=== PATIENT | female | born 1990 | race Caucasian/White ===

== ENCOUNTER 2021-07-13 19:42 | Emergency (ER) | payer OTHER, SELFPAY ==
--- NOTE | 2021-07-13 19:50 | ED.URI ---
HPI - URI/Sore Throat General Stated Complaint: sore throat Time Seen by Provider: 07/13/21 19:50 Source: patient, family and RN notes reviewed History of Present Illness HPI Narrative: Patient is a 30-year-old female who presents the urgent care with complaints of a sore throat. Patient states that it started 7 days ago with some congestion and headache which is since relieved. Patient states that she has been taking Mucinex and has had a few doses of Tylenol. Denies of any fever, chills, nausea or vomiting. No other acute complaints. No acute distress noted. Patient aware of the plan of care. Some parts of this dictation were generated by voice recognition software and may contain typographical and/or grammatical inaccuracies. Related Data Allergies Allergy/AdvReac Type Severity Reaction Status Date / Time Cephalosporins Allergy Mild Verified 03/19/17 12:42 Penicillins Allergy Mild Verified 03/19/17 12:42 Sulfa (Sulfonamide Allergy Mild Verified 03/19/17 12:42 Antibiotics) Review of Systems Review of Systems: CONSTITUTIONAL: Denies fever, chills, or sweats. EYES: Denies visual changes, redness, or discharge. ENT: Denies rhinorrhea, congestion, otalgia. Reports of sore throat CARDIOVASCULAR: Denies chest pain, palpitations, or edema. RESPIRATORY: Denies cough or dyspnea. GASTROINTESTINAL: Denies abdominal pain, nausea, vomiting, or diarrhea. GENITOURINARY: Denies dysuria or hematuria. SKIN: Denies rash or itching. MUSCULOSKELETAL: Denies back pain, joint pain, or myalgia. NEUROLOGIC: Denies headache, numbness, or weakness. All other systems reviewed are negative, except as documented in HPI. PMFSH Comments At the time of my signature, I reviewed and agree with the nursing past medical, surgical, social, and family history. There is no relevant family history pertinent to the patient complaint. Exam Narrative: GENERAL: This is a well-nourished, well-developed patient, in no apparent distress. HEAD: normocephalic, atraumatic. EYES: PERRL. Sclera clear/white. Vision is grossly intact. EARS: External ears normal, auditory canals clear and without drainage, TMs normal without perforation. Hearing grossly intact. NOSE: External nose normal with no obvious nasal discharge, nares without redness, no rhinorrhea. THROAT: Mucous membranes moist, moderate erythema noted posterior pharynx without exudate or ulceration. Mild postnasal drainage NECK: Neck supple, non-tender without lymphadenopathy, masses or thyromegaly. CARDIOVASCULAR: Regular rate and rhythm without murmurs, gallops, or rubs. RESPIRATORY: Clear to auscultation. Breath sounds equal bilaterally. No wheezes, rales, or rhonchi. SKIN: warm, intact with no suspicious lesions or rash, good texture and turgor. NEURO: awake, alert, and oriented to person, place and time. There were no obvious focal neurologic abnormalities. EXTREMITIES: No clubbing, cyanosis, or edema. Course Course Level of Care: Express Care Visit Vital Signs Vital signs: Vital Signs Temperature 98.3 F 07/13/21 19:55 Pulse Rate 100 07/13/21 19:55 Respiratory Rate 18 07/13/21 19:55 Blood Pressure 136/76 07/13/21 19:55 Pulse Oximetry 100 07/13/21 19:55 Temperature 98.3 F 07/13/21 19:55 Pulse Rate 100 07/13/21 19:55 Respiratory Rate 18 07/13/21 19:55 Blood Pressure 136/76 07/13/21 19:55 Pulse Oximetry 100 07/13/21 19:55 Reviewed MDM - URI/Sore Throat MDM Narrative Medical decision making narrative: Reviewed lab results with the patient. She is aware that flu is negative and strep is positive. Advised patient complete the oral antibiotic regimen as prescribed. Be sure to eat and medication. Use Tylenol/ibuprofen as needed for fever pain. May continue Mucinex as needed. Increase water intake and rest. Use a humidifier at night. You will be contagious for 24 hours after the start of antibiotics and must be fever free, without fever reducers. Change her t
[2021-07-13 19:55] VITALS: BP 136/76; PULSE 100; RESP 18; TEMP 36.8; O2SAT 100
== END 2021-07-13 20:15 | disposition home or self-care (01) ==
PROVIDERS: Emergency Provider Nurse Practitioner Family; PCP Family Medicine
DX: J02.0 Streptococcal pharyngitis (principal); F41.9 Anxiety disorder, unspecified; F98.8 Other specified behavioral and emotional disorders with onset usually occurring in childhood and adolescence; Z86.16 Personal history of COVID-19
CPT/HCPCS: 87804; 87880; 99203; G0463

== ENCOUNTER 2021-11-19 10:16 | Outpatient (CLI) | payer OTHER, SELFPAY ==
--- NOTE | 2021-11-19 11:00 | NEURO_ITS ---
Impression: # Complains of bilateral hand pain and numbness. # This is a normal electrodiagnostic study. # There is no evidence of Carpal Tunnel Syndrome or ulnar neuropathy. # Normal needle/EMG exam. # Clinical correlation recommended. Nerve Conduction Studies Anti Sensory Summary Table Stim Site NR Peak (ms) P-T Amp (?V) Site1 Site2 Delta-P (ms) Dist (cm) Kalbe (m/s) Left Median Anti Sensory (2-3nd Digit) Wrist 3.2 83.6 Wrist 2-3nd Digit 3.2 14.0 44 Wrist 3.1 86.5 Wrist 2-3nd Digit 3.2 14.0 44 Right Median Anti Sensory (2-3nd Digit) Wrist 3.0 96.6 Wrist 2-3nd Digit 3.0 14.0 47 Wrist 3.0 82.0 Wrist 2-3nd Digit 3.0 14.0 47 Left Radial Anti Sensory (Base 1st Digit) Wrist 2.2 68.6 Wrist Base 1st Digit 2.2 0.0 Right Radial Anti Sensory (Base 1st Digit) Wrist 1.8 73.0 Wrist Base 1st Digit 1.8 0.0 Left Ulnar Anti Sensory (5th Digit) Wrist 3.0 94.5 Wrist 5th Digit 3.0 14.0 47 Right Ulnar Anti Sensory (5th Digit) Wrist 3.0 97.8 Wrist 5th Digit 3.0 14.0 47 Motor Summary Table Stim Site NR Onset (ms) O-P Amp (mV) Site1 Site2 Delta-0 (ms) Dist (cm) Kaleb (m/s) Left Median Motor (Abd Poll Brev) Wrist 2.7 5.7 Elbow Wrist 3.2 19.0 59 Elbow 5.9 5.8 Right Median Motor (Abd Poll Brev) Wrist 3.1 5.8 Elbow Wrist 3.2 20.0 63 Elbow 6.3 4.7 Left Ulnar Motor (Abd Dig Minimi) Wrist 2.7 4.8 A Elbow Wrist 4.2 25.0 60 A Elbow 6.9 3.7 B Elbow Wrist 3.0 18.0 60 B Elbow 5.7 3.9 Right Ulnar Motor (Abd Dig Minimi) Wrist 2.3 4.3 A Elbow Wrist 4.4 27.0 61 A Elbow 6.7 3.8 B Elbow Wrist 3.1 19.0 61 B Elbow 5.4 4.0 F Wave Studies NR F-Lat (ms) L-R F-Lat (ms) Left Median (Mrkrs) (Abd Poll Brev) 24.53 0.27 Right Median (Mrkrs) (Abd Poll Brev) 24.80 0.27 Left Ulnar (Mrkrs) (Abd Dig Min) 24.61 0.62 Right Ulnar (Mrkrs) (Abd Dig Min) 25.23 0.62 EMG Side Muscle Nerve Root Ins Act Fibs Amp Dur Recrt Comment Right 1stDorInt Ulnar C8-T1 Nml Nml Nml Nml Nml Right Ext Indicis Radial (Post Int) C7-8 Nml Nml Nml Nml Nml Right Ext Digitorum Radial (Post Int) C7-8 Nml Nml Nml Nml Nml Right BrachioRad Radial C5-6 Nml Nml Nml Nml Nml Right PronatorTeres Median C6-7 Nml Nml Nml Nml Nml Right Abd Poll Brev Median C8-T1 Nml Nml Nml Nml Nml Left 1stDorInt Ulnar C8-T1 Nml Nml Nml Nml Nml Left Ext Indicis Radial (Post Int) C7-8 Nml Nml Nml Nml Nml Left Ext Digitorum Radial (Post Int) C7-8 Nml Nml Nml Nml Nml Left BrachioRad Radial C5-6 Nml Nml Nml Nml Nml Left PronatorTeres Median C6-7 Nml Nml Nml Nml Nml Left Abd Poll Brev Median C8-T1 Nml Nml Nml Nml Nml MTDD
== END 2021-11-19 10:17 | disposition home or self-care (01) ==
LOC: ANHNEURO 10:19
PROVIDERS: PCP Family Medicine
DX: G56.02 Carpal tunnel syndrome, left upper limb (principal)
CPT/HCPCS: 95886; 95911

== ENCOUNTER 2021-12-22 12:49 | Outpatient (CLI) | payer OTHER, SELFPAY ==
--- NOTE | ~2021-12-22 | US_ITS ---
EXAMINATION: US breast RT limited HISTORY: Palpable lump in the upper inner quadrant of the right breast TECHNIQUE: Limited right breast ultrasound was performed. FINDINGS: There is no evidence of focal abnormal cystic or solid mass in the vicinity of the reported palpable abnormality of concern. IMPRESSION: No specific sonographic correlate is identified for the reported palpable abnormality of concern. Fur ther evaluation at this time should be based on clinical assessment. Continued follow-up physical exa mination is recommended. BI-RADS Category 1: Negative Reviewed, dictated and finalized at location A. IMPRESSION: No specific sonographic correlate is identified for the reported palpable abnor mality of concern. Further evaluation at this time should be based on clinical assessment. Continued follow-up physical examination is recommended. BI-RADS Category 1: Negative
== END 2021-12-22 12:50 | disposition home or self-care (01) ==
PROVIDERS: PCP Family Medicine; Visit Provider Nurse Practitioner
DX: R92.8 Other abnormal and inconclusive findings on diagnostic imaging of breast (principal)
CPT/HCPCS: 76642

== ENCOUNTER 2022-02-26 10:05 | Emergency (ER) | payer OTHER, SELFPAY ==
[2022-02-26 10:18] VITALS: BP 130/81; PULSE 97; RESP 16; TEMP 36.9; O2SAT 99
--- NOTE | 2022-02-26 10:25 | ED.URI ---
HPI - URI/Sore Throat General Chief Complaint: Upper Respiratory Infection Stated Complaint: Sore Throat/Right Ear Pain Time Seen by Provider: 02/26/22 10:20 Source: patient Mode of arrival: ambulatory Limitations: no limitations History of Present Illness HPI Narrative: Ata as 31-year-old female patient presenting to the clinic today with complaints of sore throat and right-sided ear pain times 2-3 days. She reports no fever or chills. No known exposure to table with fluid, COVID, or strep MD elicited complaint: sore throat and nasal congestion Related Data Home Medications Medication Instructions Recorded Confirmed dextroamphetamine-amphetamine ER 20 mg PO DAILY 07/13/21 02/26/22 20 mg 24hr capsule,extend release etonogestrel 0.12 mg-ethinyl See Rx Instructions .Route .COMPLEX 02/26/22 02/26/22 estradiol 0.015 mg/24 hr vaginal ring (EluRyng) Allergies Allergy/AdvReac Type Severity Reaction Status Date / Time Cephalosporins Allergy Mild Rash Verified 02/26/22 10:33 Penicillins Allergy Mild Rash Verified 02/26/22 10:33 Sulfa (Sulfonamide Allergy Mild Rash Verified 02/26/22 10:33 Antibiotics) Review of Systems Review of Systems: Pertinent positives per HPI. Patient denies any fever, chills, rash, headache, visual changes, dizziness, shortness of breath, chest pain, palpitations, nausea, vomiting, diarrhea, constipation, abdominal pain, or any urinary issues. PMFSH Comments At the time of my signature, I reviewed and agree with the nursing past medical, surgical, social, and family history. There is no relevant family history pertinent to the patient complaint. Exam Narrative: General: Well-developed, well nourished, in no apparent distress Head: Normocephalic, atraumatic Eyes: Pupils equally round and reactive to light bilaterally, EOM intact, sclera and conjunctive clear, no discharge, lids normal Ears: TMs intact, dull, bulging, ear canals clear, no drainage, grossly hearing normal. Nose: Nares patent, clear nasal discharge, no inflammation, no sinus tenderness. Mouth: Oral pharynx without lesions or masses, good dentition, MMM. oropharynx red, postnasal drip Neck: Supple, trachea midline, no enlargement of anterior or posterior cervical nodes, no thyroid masses or goiter palpable. Cardio: Regular rate and rhythm, s1 and s2 normal, no murmur appreciated. Resp: Clear to auscultation bilaterally, no rhonchi, rales, wheezing or rubs Course Course Emergency Course: Portions of this record may have been created with voice recognition software. Level of Care: Express Care Visit Vital Signs Vital signs: Vital Signs Temperature 36.9 C 02/26/22 10:18 Pulse Rate 97 02/26/22 10:18 Respiratory Rate 16 02/26/22 10:18 Blood Pressure 130/81 02/26/22 10:18 Pulse Oximetry 99 02/26/22 10:18 Oxygen Delivery Room Air 02/26/22 10:18 Temperature 36.9 C 02/26/22 10:18 Pulse Rate 97 02/26/22 10:18 Respiratory Rate 16 02/26/22 10:18 Blood Pressure 130/81 02/26/22 10:18 Pulse Oximetry 99 02/26/22 10:18 Oxygen Delivery Room Air 02/26/22 10:18 Vital signs reviewed MDM - URI/Sore Throat MDM Narrative Medical decision making narrative: At the time of the patient is resting comfortably on exam table. strep screen was obtained was negative clinic today. I suspect the patient has an upper respiratory infection / pharyngitis with eustachian tube dysfunction. Supportive measures were discussed with the patient she voiced understanding of discharge instructions and agrees to treatment plan. Prednisone prescription was sent to the pharmacy Differential Diagnosis Differential diagnosis: Likely upper respiratory infection, otitis media, sinusitis, viral infection, bronchitis, influenza, pharyngitis and other ( COVID) Lab Data Labs: Strep Screen Presumptive Negative *(Reference Range: Negative)* Di
== END 2022-02-26 10:50 | disposition home or self-care (01) ==
PROVIDERS: Emergency Provider Nurse Practitioner Family; PCP Family Medicine
DX: J06.9 Acute upper respiratory infection, unspecified (principal); J02.9 Acute pharyngitis, unspecified; H69.83 Other specified disorders of Eustachian tube, bilateral
CPT/HCPCS: 87081; 87880; 99213; G0463

== ENCOUNTER 2022-04-07 23:31 | Emergency (ER) | payer OTHER, SELFPAY ==
[2022-04-07 23:39] VITALS: BP 129/84; PULSE 106; RESP 16; TEMP 36.6; O2SAT 100
--- NOTE | 2022-04-07 23:50 | PC.NURSE ---
pt back from bathroom and states that she doesn't have that much bleeding or pain now.
[2022-04-08 00:15] LABS: Basophils Percent Auto 0.3 % (0.2-1.2); Eosinophils Absolute Auto 0.1 K/mm3 (0-0.3); Eosinophils Percent Auto 0.8 % (0-4.4); Hematocrit 36.9 % (37.0-47.0); Hemoglobin 11.9 g/dL (12.0-15.0); Immature Granulocyte Absolute 0.03 K/mm3 (0.00-0.031); Immature Granulocyte Percent A 0.3 % (0-0.5); Lymphocytes Absolute Auto 2.48 K/mm3 (0.9-3.2); Lymphocytes Percent Auto 23.3 % (18.3-44.2); Mean Corpuscular HGB Conc 32.2 g/dl (32-36); Mean Corpuscular Hemoglobin 27.2 pg (26-34); Mean Corpuscular Volume 84.2 fl (80-100); Mean Platelet Volume 10.6 fl (7.4-10.4); Monocytes Absolute Auto 0.7 K/mm3 (0.1-0.6); Monocytes Percent Auto 6.6 % (2.6-8.5); Neutrophils Absolute Auto 7.3 K/mm3 (1.3-6.7); Neutrophils Percent Auto 68.7 % (45.5-73.1); Platelet Count Result 342 k/mm3 (150-375); Red Blood Count 4.38 M/mm3 (4.2-5.4); Red Cell Distribution Width 15.3 % (11.5-14.5); White Blood Count 10.6 K/mm3 (4.5-10.0)
[2022-04-08 01:04] VITALS: BP 125/81; PULSE 88; RESP 18; O2SAT 100
--- NOTE | 2022-04-08 01:06 | PC.NURSE ---
Pt reports heavy vaginal bleeding, passing golf ball sized clots and tissue that started 04/07. Pt uses the Nuva ring and is unsure when her last cycle was. The bleeding started prior to changing the nuva ring but got much heavier after she took it out. States she has gone through at least 15 super plus tampons in the past 12 hours. . Pt brought a large piece of tissue that she passed earlier. She c/o mild cramping rated 2/10. Vitals are stable. She denies any other complaints.
--- NOTE | 2022-04-08 01:54 | ED.GENADULT ---
HPI - General Adult General Chief complaint: Vaginal Bleeding Stated complaint: vaginal bleeding Time Seen by Provider: 04/08/22 01:02 History of Present Illness HPI narrative: 31-year-old female that is presents to the emergency department for evaluation of vaginal bleeding. Patient states she has had vaginal spotting over the course of the last week but tonight had a significant increase in abdominal cramping and vaginal bleeding. Patient states that approximately 11 PM tonight she passed a large amount of tissue and immediately afterwards had improvement of her abdominal cramping and her bleeding has also resolved. Patient had been using the NuvaRing for control and did remove the NuvaRing today. Patient does follow-up with Dr. Reyes Related Data Home Medications Medication Instructions Recorded Confirmed dextroamphetamine-amphetamine ER 20 mg PO DAILY 07/13/21 02/26/22 20 mg 24hr capsule,extend release etonogestrel 0.12 mg-ethinyl See Rx Instructions .Route .COMPLEX 02/26/22 02/26/22 estradiol 0.015 mg/24 hr vaginal ring (EluRyng) Allergies Allergy/AdvReac Type Severity Reaction Status Date / Time Cephalosporins Allergy Mild Rash Verified 02/26/22 10:33 Penicillins Allergy Mild Rash Verified 02/26/22 10:33 Sulfa (Sulfonamide Allergy Mild Rash Verified 02/26/22 10:33 Antibiotics) Review of Systems Review of Systems: CONSTITUTIONAL: Denies fever, chills, or sweats. EYES: Denies visual changes, redness, or discharge. ENT: Denies rhinorrhea, congestion, sore throat, or otalgia. CARDIOVASCULAR: Denies chest pain, palpitations, or edema. RESPIRATORY: Denies cough or dyspnea. GASTROINTESTINAL: Denies abdominal pain, nausea, vomiting, or diarrhea. GENITOURINARY: See HPI SKIN: Denies rash or itching. MUSCULOSKELETAL: Denies back pain, joint pain, or myalgia. NEUROLOGIC: Denies headache, numbness, or weakness. Exam Narrative: APPEARANCE: Well appearing, no pain, no distress, well-nourished. HEAD: normocephalic, atraumatic. EYES: PERRLA/EOMI, conjunctivae clear. NOSE: Normal no drainage NECK: Supple. No adenopathy, no masses. RESPIRATORY: Airway patent, respirations nonlabored. Clear to auscultation bilaterally, no rales, rhonchi, wheezing. CARDIOVASCULAR: Regular rate and rhythm without murmurs rubs or gallops. ABDOMINAL: Soft, nontender, nondistended, normal bowel sounds Pelvic exam: Normal-appearing cervix with no active bleeding. No blood in the vaginal vault. No abdominal tenderness to palpation at this time. MUSCULOSKELETAL: Moves all extremities. Strength/ROM intact, No edema, No calf tenderness. NEURO: Alert. Cranial nerves II through XII intact. Grossly intact SKIN: Warm, dry. Normal Color Course Course Emergency Course: Patient did bring a bag with the products of conception that appear to be more than just clotted tissue. Case was discussed with the patient's ENGAGEMENT EXECUTIVE. Dr. Navarro felt that because the patient was pain-free and had no vaginal bleeding that she could have follow-up as an outpatient. Patient and visitor were comfortable with the plan for discharge and close follow-up. Patient was educated on reasons to return to the emergency room. All questions concerns were addressed. Differential diagnosis include threatened , vaginal injury and ectopic urgency. No evidence of vaginal injury. Patient does appear to pass some products of conception. Patient's bleeding did resolve after this point. Most likely diagnosis is threatened . Vital Signs Vital signs: Vital Signs Temperature 97.8 F 04/07/22 23:39 Pulse Rate 106 H 04/07/22 23:39 Respiratory Rate 16 04/07/22 23:39 Blood Pressure 129/84 04/07/22 23:39 Pulse Oximetry 100 04/07/22 23:39 Oxygen Delivery Room Air 04/07/22 23:39 Temperature 97.8 F 04/07/22 23:39 Pulse Rate 88 04/08/22 02:59 Respiratory Rate 18 04/08/22 02:59 Blood Pressure 112/70 04/08/22 02:59 Pulse Ox
--- NOTE | 2022-04-08 02:36 | PC.NURSE ---
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
--- NOTE | 2022-04-08 02:44 | PC.NURSE ---
[employer] called to report demise. Spoke with Ambar Barajas.
[2022-04-08 02:59] VITALS: BP 112/70; PULSE 88; RESP 18; O2SAT 99
[2022-04-09] MEDS: RHO(D) IMMUNE GLOBULIN 300 MCG/2 ML SYRINGE IM (10:29)
== END 2022-04-08 03:00 | disposition home or self-care (01) ==
PROVIDERS: Emergency Provider Emergency Medicine; PCP Family Medicine
DX: O20.0 Threatened abortion (principal); Z3A.00 Weeks of gestation of pregnancy not specified
CPT/HCPCS: 36415; 81025; 84702; 85025; 85461; 86850; 86900; 86901; 88305; 90384; 96372; 99284; J2790

== ENCOUNTER 2022-04-09 09:32 | Outpatient (CLI) | payer OTHER, SELFPAY | END 2022-04-09 09:33 | disposition home or self-care (01) | LOC: ANHLAB 09:35 | PROVIDERS: PCP Advanced Practice Midwife; Visit Provider Advanced Practice Midwife | DX: O20.0 Threatened abortion (principal); Z3A.00 Weeks of gestation of pregnancy not specified | CPT/HCPCS: 36415; 84702 ==

== ENCOUNTER 2022-04-10 02:31 | Emergency (ER) | payer OTHER, SELFPAY ==
[2022-04-10 02:38] VITALS: BP 141/89; PULSE 92; RESP 16; O2SAT 99
[2022-04-10 02:51] LABS: Basophils Percent Auto 0.3 % (0.2-1.2); Eosinophils Absolute Auto 0.2 K/mm3 (0-0.3); Eosinophils Percent Auto 2.6 % (0-4.4); Hemoglobin 11.3 g/dL (12.0-15.0); Immature Granulocyte Absolute 0.02 K/mm3 (0.00-0.031); Immature Granulocyte Percent A 0.2 % (0-0.5); Lymphocytes Absolute Auto 2.42 K/mm3 (0.9-3.2); Lymphocytes Percent Auto 28.2 % (18.3-44.2); Mean Corpuscular HGB Conc 31.4 g/dl (32-36); Mean Corpuscular Hemoglobin 26.6 pg (26-34); Mean Corpuscular Volume 84.7 fl (80-100); Mean Platelet Volume 10.8 fl (7.4-10.4); Monocytes Absolute Auto 0.6 K/mm3 (0.1-0.6); Monocytes Percent Auto 7.2 % (2.6-8.5); Neutrophils Absolute Auto 5.3 K/mm3 (1.3-6.7); Neutrophils Percent Auto 61.5 % (45.5-73.1); Platelet Count Result 307 k/mm3 (150-375); Red Blood Count 4.25 M/mm3 (4.2-5.4); Red Cell Distribution Width 15.6 % (11.5-14.5); White Blood Count 8.6 K/mm3 (4.5-10.0)
[2022-04-10 03:03] LABS: Anion Gap 7 mmol/L (8-16); Blood Urea Nitrogen 13 mg/dL (7-17); Calcium 8.6 mg/dL (8.4-10.2); Carbon Dioxide 28 mmol/L (22-30); Chloride 106 mmol/L (98-107); Estimated Glomerular Filt Rate > 60; Glucose 103 mg/dL (65-110); Sodium 141 mmol/L (137-145)
[2022-04-10] MEDS: HYDROcodone/acetaminophen (*CRX) 5-325 MG TABLET 1 TAB PO (03:04)
--- NOTE | 2022-04-10 03:36 | ED.ABDPAIN ---
HPI - Abdominal Pain General Chief Complaint: Abdominal Pain Stated Complaint: abdominal pain Time Seen by Provider: 04/10/22 02:36 Source: patient Mode of arrival: ambulatory Limitations: no limitations History of Present Illness HPI narrative: 31-year-old 2 para 1 here with complaints of lower abdominal cramping. Patient states that she is having a miscarriage. Patient states that she had a heavy bleeding yesterday however since last night it is much strip machine tender. MD elicited complaint: abdominal pain Pertinent past history: other (Miscarriage) Onset (ago): hour(s) (2) Pain Consistency: constant Location: suprapubic Severity: moderate Quality: cramping Radiation: none Migration to: no migration Exacerbating factors: nothing Relieving factors: nothing Context: confirms other (Miscarriage) Associated symptoms: denies other symptoms Related Data Home Medications Medication Instructions Recorded Confirmed dextroamphetamine-amphetamine ER 20 mg PO DAILY 07/13/21 02/26/22 20 mg 24hr capsule,extend release etonogestrel 0.12 mg-ethinyl See Rx Instructions .Route .COMPLEX 02/26/22 02/26/22 estradiol 0.015 mg/24 hr vaginal ring (EluRyng) Allergies Allergy/AdvReac Type Severity Reaction Status Date / Time Cephalosporins Allergy Mild Rash Verified 02/26/22 10:33 Penicillins Allergy Mild Rash Verified 02/26/22 10:33 Sulfa (Sulfonamide Allergy Mild Rash Verified 02/26/22 10:33 Antibiotics) Review of Systems Review of Systems: All systems reviewed & are unremarkable except as noted in HPI and below Constitutional: Constitutional: Reports no additional constitutional complaints Eyes: Eyes: Reports no additional eye complaints ENT: Reports system reviewed and no additional complaints, except as documented Cardiovascular: Cardiovascular: Reports no additional cardiovascular complaints Respiratory: Respiratory: Reports no additional respiratory complaints Gastrointestinal: Gastrointestinal: Reports as per HPI Genitourinary: Genitourinary: Reports as per HPI Musculoskeletal: Musculoskeletal: Reports no additional musculoskeletal complaints Exam Narrative: GENERAL: Well-appearing, well-nourished, and in no acute distress. HEAD: Normocephalic, atraumatic. EYES: PERRLA and EOMI. NECK: Supple. CHEST: Clear to auscultation. No respiratory distress. HEART: Regular rate and rhythm. No murmur heard. Normal peripheral pulses. ABDOMEN: Soft, nontender, nondistended, normal active bowel sounds. EXTREMITIES: Normal range of motion. No edema. SKIN: Warm, dry, no rash. NEURO: No focal deficits. Alert and oriented x3. PSYCH: Normal mood and affect. Course Course Emergency Course: Patient feeling much comfortable after hydrocodone tablet I did inform her about her lab work. I recommended her to drink more fluids, follow-up with SECURITY INVESTIGATOR next week. Vital Signs Vital signs: Vital Signs Pulse Rate 92 04/10/22 02:38 Respiratory Rate 16 04/10/22 02:38 Blood Pressure 141/89 H 04/10/22 02:38 Pulse Oximetry 99 04/10/22 02:38 Pulse Rate 92 04/10/22 02:38 Respiratory Rate 16 04/10/22 02:38 Blood Pressure 141/89 H 04/10/22 02:38 Pulse Oximetry 99 04/10/22 02:38 MDM - Abdominal Pain MDM Narrative Medical decision making narrative: 31-year-old with a given history of miscarriage and her beta-hCG quantitative was gradually coming down consistent with miscarriage. We will give her hydrocodone for cramps. Differential Diagnosis Differential diagnosis: Likely abdominal pain and other (Inevitable AB) Medical Records Attestation: I reviewed the patient's medical records. Lab Data Attestation: I reviewed the patient's lab results. 04/10/22 02:46 04/10/22 02:46 Labs: Lab Results 04/10/22 04/10/22 Range/Units 02:46 02:46 WBC 8.6 (4.5-10.0) K/mm3 RBC 4.25 (4.2-5.4) M/mm3 Hgb 11.3 L (12.0-15.0) g/dL Hct 36.0 L (37.0-47.0) % MCV 84.7
== END 2022-04-10 03:55 | disposition home or self-care (01) ==
PROVIDERS: Emergency Provider Family Medicine; PCP Family Medicine
DX: O03.9 Complete or unspecified spontaneous abortion without complication (principal); R10.30 Lower abdominal pain, unspecified
CPT/HCPCS: 36415; 80048; 84702; 85025; 99283; A9270

== ENCOUNTER 2022-04-20 14:29 | Outpatient (CLI) | payer OTHER, SELFPAY ==
[2022-04-20 15:19] LABS: Beta HCG Quantitative 28.44 mIU/ML
== END 2022-04-20 14:30 | disposition home or self-care (01) ==
LOC: ANHLAB 14:33
PROVIDERS: PCP Family Medicine; Visit Provider Advanced Practice Midwife
DX: O02.1 Missed abortion (principal)
CPT/HCPCS: 36415; 84702

== ENCOUNTER 2023-02-03 10:02 | Emergency (ER) | payer OTHER, SELFPAY ==
[2023-02-03 10:08] VITALS: BP 143/76; PULSE 87; RESP 18; TEMP 36.9; O2SAT 99
--- NOTE | 2023-02-03 10:11 | ED.URI ---
HPI - URI/Sore Throat General Chief Complaint: Upper Respiratory Infection Stated Complaint: Sore Throat/Body Aches Time Seen by Provider: 02/03/23 10:11 Source: patient Mode of arrival: ambulatory Limitations: no limitations History of Present Illness HPI Narrative: Alise is a 32-year-old female patient presenting to the clinic today with complaints of sore throat and body aches x1 day. She reports no known fever or chills. 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 MD elicited complaint: sore throat and nasal congestion Related Data Home Medications Medication Instructions Recorded Confirmed dextroamphetamine-amphetamine ER 20 mg PO DAILY 07/13/21 02/03/23 20 mg 24hr capsule,extend release etonogestrel 0.12 mg-ethinyl See Rx Instructions .Route .COMPLEX 02/26/22 02/03/23 estradiol 0.015 mg/24 hr vaginal ring (EluRyng) drospirenone (contraceptive) 4 mg 1 tablet PO DAILY 02/03/23 02/03/23 (28) tablet (Slynd) Allergies Allergy/AdvReac Type Severity Reaction Status Date / Time Cephalosporins Allergy Mild Rash Verified 02/03/23 10:26 Penicillins Allergy Mild Rash Verified 02/03/23 10:26 Sulfa (Sulfonamide Allergy Mild Rash Verified 02/03/23 10:26 Antibiotics) Review of Systems Review of Systems: Pertinent positives per HPI. Patient denies any fever, chills, rash, headache, visual changes, dizziness, cough, shortness of breath, chest pain, palpitations, nausea, vomiting, diarrhea, constipation, abdominal pain, or any urinary issues. PMFSH Comments At the time of my signature, I reviewed and agree with the nursing past medical, surgical, social, and family history. There is no relevant family history pertinent to the patient complaint. Exam Narrative: General: Well-developed, well nourished, in no apparent distress Head: Normocephalic, atraumatic Eyes: Pupils equally round and reactive to light bilaterally, EOM intact, sclera and conjunctive clear, no discharge, lids normal Ears: TMs intact and clear, ear canals clear, no drainage, grossly hearing normal. Nose: Nares patent, no discharge, no inflammation, no sinus tenderness. Mouth: Oral pharynx without lesions or masses, good dentition, MMM. Neck: Supple, trachea midline, no enlargement of anterior or posterior cervical nodes, no thyroid masses or goiter palpable. Cardio: Regular rate and rhythm, s1 and s2 normal, no murmur appreciated. Resp: Clear to auscultation bilaterally, no rhonchi, rales, wheezing or rubs Course Course Emergency Course: Portions of this record may have been created with voice recognition software. Level of Care: Express Care Visit Vital Signs Vital signs: Vital signs reviewed MDM - URI/Sore Throat MDM Narrative Medical decision making narrative: At the time of visit patient is resting comfortably on exam table. Strep test was negative. We will send strep for culture. Supportive measures were discussed with the patient she voiced understanding discharge instructions agrees to treatment plan. Differential Diagnosis Differential diagnosis: Likely upper respiratory infection, otitis media, sinusitis, viral infection, bronchitis, influenza, pharyngitis and other (COVID) Discharge Plan Discharge Clinical Impression: Pharyngitis Qualifiers: Pharyngitis/tonsillitis etiology: unspecified etiology Qualified Code(s): J02.9 - Acute pharyngitis, unspecified Patient Disposition: Home, Self-Care Condition: Stable Instructions: Antibiotic Form, Pharyngitis (ED) Additional Instructions: Strep screen was negative in the clinic today. We will send strep for culture and if this comes back positive we will contact you in place you on antibiotics Increase fluids and stay well hydrated Tylenol/motrin for pain/fever Flonase and OTC antihistamines as directed Vicks vapor rub to open sinuses Sinus rinses for congestion Cepacol spray, cough drops, throat lozenges, warm tea w
== END 2023-02-03 10:35 | disposition home or self-care (01) ==
PROVIDERS: Emergency Provider Nurse Practitioner Family
DX: J02.9 Acute pharyngitis, unspecified (principal)
CPT/HCPCS: 87081; 87880; 99213; G0463

== ENCOUNTER 2023-02-23 15:18 | Emergency (ER) | payer OTHER, SELFPAY ==
--- NOTE | 2023-02-23 15:21 | ED.URI ---
HPI - URI/Sore Throat General Chief Complaint: Upper Respiratory Infection Stated Complaint: Pressure on chest;Shortness of breath Time Seen by Provider: 02/23/23 15:33 Source: patient and RN notes reviewed Mode of arrival: ambulatory Limitations: no limitations History of Present Illness HPI Narrative: 32-year-old female presents with concern for cough. She reports chest congestion as well. She reports symptoms started 6 days ago she initially had fever, body aches, chills which have resolved. She reports she continues to have cough. She denies taking medication for her cough. MD elicited complaint: cough Related Data Home Medications Medication Instructions Recorded Confirmed drospirenone (contraceptive) 4 mg 1 tablet PO DAILY 02/03/23 02/23/23 (28) tablet (Slynd) Allergies Allergy/AdvReac Type Severity Reaction Status Date / Time Cephalosporins Allergy Mild Rash Verified 02/23/23 15:27 Penicillins Allergy Mild Rash Verified 02/23/23 15:27 Sulfa (Sulfonamide Allergy Mild Rash Verified 02/23/23 15:27 Antibiotics) Review of Systems Review of Systems: CONSTITUTIONAL: Denies malaise, chills, sweats, or fever. EYES: Denies visual changes, redness, or discharge. ENT: Denies rhinorrhea, congestion, sinus pain, otalgia and sore throat. CARDIOVASCULAR: Denies chest pain, palpitations, or edema. RESPIRATORY: Reports cough and chest congestion. Denies dyspnea. GASTROINTESTINAL: Denies abdominal pain, nausea, vomiting, diarrhea SKIN: Denies rash or itching. MUSCULOSKELETAL: Denies myalgia. NEUROLOGIC: Denies headache. All systems reviewed & are unremarkable except as noted in HPI and below PMFSH Comments At time of signature, agree with nursing past medical, surgical, social and family history. There is no relevant family history pertinent to the presenting complaint Exam Narrative: GENERAL: Well-appearing, well-nourished, and in no acute distress. HEAD: Normocephalic EYES: PERRLA, conjunctivae clear ENT: Nares clear. Mucous membranes moist. TM pearly salcedo with sharp light reflex bilaterally; no tragal tenderness. Oropharynx not erythematous without lesions. Tonsils not enlarged and without exudate, no drooling, no hoarseness, no trismus, uvula midline. NECK: Supple. No lymphadenopathy CHEST: Clear to auscultation, breath sounds equal. No wheezing, rhonchi, rales, or stridor. No respiratory distress, speaks in full sentences. HEART: Regular rate and rhythm. No murmur heard. SKIN: Warm, dry, no rash. NEURO: Alert and oriented x3. PSYCH: Normal mood and affect Course Course Emergency Course: Patient is aware of diagnosis, understands and agrees to treatment plan. Anticipatory guidance given. Patient agrees to follow-up as directed and is aware of reasons to seek care at the emergency department. Portions of this record may have been created with voice recognition software Level of Care: Express Care Visit Vital Signs Vital signs: Reviewed. MDM - URI/Sore Throat MDM Narrative Medical decision making narrative: Differential diagnosis considered: Monae virus, strep pharyngitis, allergic rhinitis, upper respiratory tract infection, sinusitis, rhinosinusitis, nasopharyngitis. viral pharyngitis, otitis media, otitis externa, pneumonia, bronchitis, viral cough syndrome, viral syndrome, and influenza. Exam findings show no acute concerns or changes; patient is non-toxic appearing and is in no distress. Patient is appropriate for outpatient treatment and follow-up. Lab Data Attestation: I reviewed the patient's lab results. Critical Care Time Critical Care Time Critical Care Time: No Discharge Plan Discharge Clinical Impression: Bronchitis Patient Disposition: Home, Self-Care Condition: Stable Instructions: Acute Bronchitis (ED) Additional Instructions: Viral illness may last between 7-21 days; antibiotics do not cure viral illness and are NOT recommended at this time. Recommend an
[2023-02-23 15:27] VITALS: BP 120/77; PULSE 77; RESP 16; TEMP 36.6; O2SAT 99
== END 2023-02-23 15:42 | disposition home or self-care (01) ==
PROVIDERS: Emergency Provider Nurse Practitioner; PCP Family Medicine
DX: J40 Bronchitis, not specified as acute or chronic (principal); Z86.16 Personal history of COVID-19
CPT/HCPCS: 99213; G0463

== ENCOUNTER 2024-04-01 14:03 | Emergency (ER) | payer BC, SELFPAY ==
[2024-04-01 14:18] VITALS: BP 141/81; PULSE 108; RESP 20; TEMP 36.9; O2SAT 100
--- NOTE | 2024-04-01 14:52 | ED_ITS ---
HPI - URI/Sore Throat General Chief Complaint: Upper Respiratory Infection Stated Complaint: cough,sinus pressure History of Present Illness HPI Narrative: patient is a 33-year-old female, presents to [facility] with approximately 3 week history of URI symptoms, waxing and waning seem very however over the past week they have progressively worsened, now with right maxillary sinus pain, purulent nasal discharge, and a productive cough that is worse at night when she lies supine. She denies associated chest pain or shortness of breath. She has attempted [id number] Delsym, Vistaril and used her inhaler without much relief. She denies any additional associated symptoms or modifying factors. She is not . Related Data Home Medications ?Medication ?Instructions ?Recorded ?Confirmed ?Last Taken ?Type drospirenone (contraceptive) 4 mg 1 tablet PO DAILY 02/03/23 02/23/23 Unknown History (28) tablet (Slynd) dextroamphetamine-amphetamine 30 04/01/24 Unknown History mg tablet hydroxyzine HCl 25 mg tablet mg 04/01/24 Unknown History Allergies Allergy/AdvReac Type Severity Reaction Status Date / Time Cephalosporins Allergy Mild Rash Verified 04/01/24 14:24 Penicillins Allergy Mild Rash Verified 04/01/24 14:24 Sulfa (Sulfonamide Allergy Mild Rash Verified 04/01/24 14:24 Antibiotics) Review of Systems ENT: Comments: Refer HPI Exam Const: General: healthy appearing, no acute distress and alert Nutritional Appearance: obese Orientation/consciousness: patient oriented x3 Limitations: no limitations HENMT: Head: normal to inspection Ears: external ears normal and TM's normal bilaterally Face/Nose/Sinus: Normal external nose present and Nasal discharge present purulent bilateral Face and sinus: normal facial exam and sinus tenderness maxillary ( right maxillary sinus is tender palpation) Mouth: Yes Normal oral and palatal mucosa present and Yes lip normal Teeth and gingiva: dentition normal Throat: posterior oropharynx normal and uvula midline Eyes: Conjunctivae: conjunctivae normal Pupils: Equal, round and reactive pupils present EOM: EOMs intact bilaterally Neck: Neck: normal visual inspection, no lymphadenopathy and no meningeal signs Resp: Effort & Inspection: normal respiratory effort Auscultation: clear to auscultation bilaterally Cardio: Rate: regular rate Rhythm: regular rhythm Skin: General skin exam: normal color Rashes: no rashes Wounds: no wounds Neuro: General: patient oriented x3, moves all extremities, no meningeal signs, no focal motor deficits and CN's II-XI intact bilaterally Cranial nerves: Yes Nystagmus not present Speech: normal speech Gait exam (Neuro): Normal gait present Extrem: General: normal to inspection Course Course Emergency Course: plan to treat with oral antibiotics suspected postviral,acute bacterial rhinosinusitis, cough suppressant, [id number] Flonase, APAP and Motrin as needed. Follow up PCP in 3 days if symptoms are not resolving. Patient is agreeable plan Level of Care: Express Care Visit (19614) Vital Signs Vital signs: Vital Signs Temperature 36.9 C 04/01/24 14:18 Pulse Rate 108 H 04/01/24 14:18 Respiratory Rate 20 04/01/24 14:18 Blood Pressure 141/81 H 04/01/24 14:18 Pulse Oximetry 100 04/01/24 14:18 Oxygen Delivery Room Air 04/01/24 14:18 Temperature 36.9 C 04/01/24 14:18 Pulse Rate 108 H 04/01/24 14:18 Respiratory Rate 20 04/01/24 14:18 Blood Pressure 141/81 H 04/01/24 14:18 Pulse Oximetry 100 04/01/24 14:18 Oxygen Delivery Room Air 04/01/24 14:18 MDM - URI/Sore Throat MDM Narrative Medical decision making narrative: doxycycline, promethazine DM Differential Diagnosis Differential diagnosis: Likely upper respiratory infection, sinusitis, viral infection, bronchitis and pharyngitis Discharge Plan Discharge Clinical Impression: Sinusitis Qualifiers: Sinusitis location: maxillary Chronicity: acute Recurrence: non-recurrent Qualified Code(s): J01.00 - Acute maxillary sinusitis, unspecified Patient Disposition: Home, Self-Care Condition: Stable Instructions: Antibiotic Form, Sinusitis (ED) Additional Instructions: PUSH FLUIDS AND REST, COMPLETE ANTIBIOTICS PRESCRIBED, TAKE WITH FOOD TO REDUCE GI SIDE EFFECTS, YOU MAY USE [id number] FLONASE FOR ADDED SYMPTOM RELIEF. COUGH MEDICATION PRESCRIBED, FOLLOW-UP WITH YOUR PRIMARY DOCTOR IN 3 DAYS IF SYMPTOMS ARE NOT IMPROVING Patient Language: Korean Prescriptions: New promethazine-DM 6.25-15 mg/5 mL syrup 5 ml PO Q4-6H PRN (Reason: cough) Qty: 118 0RF doxycycline hyclate 100 mg capsule 100 mg PO BID 10 Days Qty: 20 0RF No Action Slynd 4 mg (28) tablet 1 tablet PO DAILY dextroamphetamine-amphetamine 30 mg tablet hydroxyzine HCl 25 mg tablet Follow-up/Referrals: Stalin,Willy Wagner MD [Primary Care Provider] - Stand Alone Forms: Work/School Release IP Time of Disposition: 14:57
--- OUTSIDE RECORDS SUMMARY | 2024-04-08 16:57 | XMS_ITS | Patient Health Summary ---
Author Organization [facility] Address [address] [place] [address] Care Team Providers Care Instructional Paraprofessional Name Role Phone Willy Gant MD Primary Care Provider Note from [facility],non-owned Affiliates and Associated Physician Practices is amultiple site organization consisting of ambulatory clinics and hospital sitesin [place], [place], [place] and [place]. This disclosure is being madepursuant to the Care Everywhere program and may not contain all information available regarding this patient. Last updated 17.[facility] Allergies * Cephalosporins(Urticaria,Swelling) -Medium Criticality * Penicillins(Urticaria,Swelling) -Medium Criticality * Sulfa Drugs(Unknown) Medications Be aware that medications may not be up to date on this document. Always verify current medications with the patient. No known medications Social History Tobacco Use Types Packs/Day Years Used Date Smoking Tobacco: Every Day Smokeless Tobacco: Never Comments:Vape Sex and Gender Information Value Date Recorded Sex Assigned at Not on file Gender Identity Not on file Sexual Orientation Not on file Last Filed Vital Signs Vital Sign Reading Time Taken Comments Blood Pressure 128/86 12/05/2018 12:37 PM CDT Pulse 82 12/05/2018 12:37 PM CDT Temperature 37.1 ??C (98.8 ??F) 12/05/2018 12:37 PM C DT Respiratory Rate 16 12/05/2018 12:37 PM CDT Oxygen Saturation 98% 12/05/2018 12:37 PM CDT Inhaled Oxygen Concentration - - Weight 72.6 kg (160 lb) 12/05/2018 12:37 PM CDT Height 165.1 cm (5' 5 ) 12/05/2018 12:37 PM CDT Body Mass Index 26.63 12/05/2018 12:37 PM CDT Procedures * STREP A SCREEN - POINT OF CARE (AMB) STL(Performed 12/05/2018) Performed for Nasopharyngitis Results * STREP A SCREEN (12/05/2018 12:41 PM CDT) Strep A Rapid POCT Negative Negative Strep A Internal Control Present Lot # [id number] Expiration Date 04 03 2020 Throat ENTIRE THROAT (SURFACE REGION OF NECK) / Unknown 12/05/2018 12:41 PM CDT Selene Carson 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
--- OUTSIDE RECORDS SUMMARY | 2024-04-08 16:57 | XMS_ITS | Encounter Summary ---
Author Organization [facility] Address [address] [place] [address] Care Team Providers Care Lumber Carrier Operator Name Role Phone Willy Gant MD Primary Care Provider Reason for Visit * Reason Onset Date Comments Follow-up 12/07/2018 Encounter Details Date Type Department Care Team ([facility] st Contact Info) Description 12/07/2018 Telephone [facility] AT [address] [phone] Provider, [facility] Follow-up Social History Tobacco Use Types Packs/Day Years Used Date Smoking Tobacco: Every Day Smokeless Tobacco: Never Comments:Vape Sex and Gender Information Value Date Recorded Sex Assigned at Not on file Gender Identity Not on file Sexual Orientation Not on file documented as of this encounter Plan of Treatment Not on file documented as of this encounter Visit Diagnoses Not on filedocumented in this encounter Care Teams Lumber Carrier Operator Relationship Specialty Start Date End Date Willy Gant MD [address] [facility] [address] [phone] PCP - General Family Medicine 12/05/18 documented as of this encounter
--- OUTSIDE RECORDS SUMMARY | 2024-04-08 16:57 | XMS_ITS | Encounter Summary ---
Author Organization [facility] Address [address] [place] [address] Care Team Providers Care Mine Production Engineer Name Role Phone Willy Gant MD Primary Care Provider Reason for Visit * Reason Comments Sore Throat Encounter Details Date Type Department Care Team (Late st Contact Info) Description 12/05/2018 12:20 PM CDT Office Visit [facility] AT [address] [phone] Provider, Alejandro Exp [place] Nasopharyngitis (Primary Dx) Social History Tobacco Use Types Packs/Day Years Used Date Smoking Tobacco: Every Day Smokeless Tobacco: Never Comments:Vape Sex and Gender Information Value Date Recorded Sex Assigned at Not on file Gender Identity Not on file Sexual Orientation Not on file documented as of this encounter Last Filed Vital Signs Vital Sign Reading [...] Mass Index 26.63 12/05/2018 12:37 PM CDT documented in this encounter Patient Instructions * Patient Instructions* Selene Carson, HAND BUFFING WHEEL FORMER-HAND TUBE WINDER - 12/05/2018 12:51 PM CDT Patient Education Pharyngitis WHAT YOU NEED TO KNOW: What is pharyngitis? Pharyngitis, or sore throat, is inflammation of the tissues and structures in your pharynx (throat). Pharyngitis is most often caused by bacteria. It may also be caused by a coldor flu virus. Other causes include smoking, allergies, or acid reflux. What signs and symptoms may occur with pharyngitis? ?? Sore throat or pain when you swallow ?? Fever, chills, and body aches ?? Hoarse or raspy voice ?? Cough, runny or stuffy nose, itchy or watery eyes ?? Headache ?? Upset stomach and loss of appetite ?? Mild neck stiffness ?? Swollen glands that feel like hard lumps when you touch your neck ?? White and yellow pus-filled blisters in the back of your throat How is pharyngitis diagnosed? Tell your healthcare provider about your symptoms. He may look insideyour throat and feel your neck. You may also need the following tests: ?? A throat culture may show which germ is causing your sore throat. A cotton swab is rubbed against the back of your throat. ?? Blood tests may be used to show if another medical condition is causing your sore throat. How is pharyngitis treated? Viral pharyngitis will go away on its own without treatment. Your sore throat should start to feel better in 3 to 5 days for both viral and bacterial infections. You may need any of the following: ?? Antibiotics treat a bacterial infection. ?? NSAIDs , such as ibuprofen, help decrease swelling, pain, and fever. NSAIDs can cause stomach bleeding or kidney problems in certain people. If you take blood thinner medicine, always ask your healthcare provider if NSAIDs are safe for you. Always read the medicine label and follow directions. ?? Acetaminophen decreases pain and fever. It is available without a doctor's order. Ask how much to take and how often to take it. Follow directions. Acetaminophen can cause liver damage if not taken correctly. How can I manage my symptoms? ?? Gargle salt water. Mix ?? teaspoon salt in an 8 ounce glass of warm water and gargle. This may help decrease swelling in your throat. ?? Drink liquids as directed. You may need to drink more liquids than usual. Liquids may help soothe your throat and prevent dehydration. Ask how much liquid to drink each day and which liquids are best for you. ?? Use a cool-steam humidifier to help moisten the air in your room and decrease your cough. ?? Soothe your throat with cough drops, ice, soft foods, or popsicles. How can I prevent the spread of pharyngitis? Cover your mouth and nose when you cough or sneeze. Donot share food or drinks. Wash your hands often. Use soap and water. If soap and water are unavailable, use an alcohol based hand food sanitarian. Call 911 for any of the following: ?? You have trouble breathing or swallowing because your throat is swollen or sore. When should I seek immediate care? ?? You are drooling because it hurts too much to swallow. ?? Your fever is higher than 102?F (39?C) or lasts longer than 3 days. ?? You are confused. ?? You taste blood in your throat. When should I contact my healthcare provider? ?? Your throat pain gets worse. ?? You have a painful lump in your throat that does not go away after 5 days. ?? Your symptoms do not improve after 5 days. ?? You have questions or concerns about your condition or care. CARE AGREEMENT: You have the right to help plan your care. Learn about your health condition and how it may be treated. Discuss treatment options with your healthcare providers to decide what care you want to receive. You always have the right to refuse treatment. The above information is an first aid officer only. It is not intended as medical advice for individual conditions or treatments. Talk to your doctor, nurse or pharmacist before following any medical regimen to see if it is safe and effective for you. ?? Copyright [employer] 2019 Information is for End User's use only and may not be sold, redistributed or otherwise used for commercial purposes. All illustrations and images included in CareNotes?? are the copyrighted property of [employer] or [employer] documented in this encounter Progress Notes * Selene Carson, HAND BUFFING WHEEL FORMER-HAND TUBE WINDER - 12/05/2018 12:45 PM CDT Subjective: Alise Augustine is a 28 year old female who presents for evaluation: Chief Complaint Patient presents with ??? Sore Throat Primary Care Physician is Willy Gant MD. Symptoms include sore throat and light cough. Also has some lower back pain and has been feeling drained. Reports her lower back is always achy when she gets sick. Denies any urinary symptoms. Onset of symptoms was 1 day ago, unchanged since that time. Denies fever or chills. Daughter tested positive for strep in the peds office last. She is drinking plenty of fluids. Evaluation to date: none. Treatment to date: Nyquil Allergies Allergen Reactions ??? Cephalosporins Urticaria and Swelling ??? Pcn [Penicillins] Urticaria and Swelling ??? Sulfa Drugs Unknown No outpatient medications have been marked as taking for the 12/05/18 encounter (Office Visit) with Provider, Alejandro Youssef. Past Medical History: Diagnosis Date ??? Asthma There is no problem list on file for this patient. Past Surgical History: Procedure Laterality Date ??? Appendectomy ??? Section ??? Tympanostomy Social History Socioeconomic History ??? Marital status: Single Spouse name: Not on file ??? Number of children: Not on file ??? Years of education: Not on file ??? Highest education level: Not on file Occupational History ??? Not on file Social Needs ??? Financial resource strain: Not on file ??? Food insecurity: Worry: Not on file Inability: Not on file ??? Transportation needs: Medical: Not on file Non-medical: Not on file Tobacco Use ??? Smoking status: Current Every Day Smoker ??? Smokeless tobacco: Never Used ??? Tobacco comment: Vape Substance and Sexual Activity ??? Alcohol use: Not on file ??? Drug use: Not on file ??? Sexual activity: Not on file Lifestyle ??? Physical activity: Days per week: Not on file Minutes per session: Not on file ??? Stress: Not on file Relationships ??? Social connections: Talks on phone: Not on file Gets together: Not on file Attends sabianist service: Not on file Active member of club or organization: Not on file Attends meetings of clubs or organizations: Not on file Relationship status: Not on file ??? Intimate partner violence: Fear of current or ex partner: Not on file Emotionally abused: Not on file Physically abused: Not on file Forced sexual activity: Not on file Other Topics Concern ??? Not on file Social History Narrative ??? Not on file Medications reviewed. Review of Systems Pertinent items are noted in HPI Constitutional: Negative for fevers, chills. Positive for fatigue Eyes: Negative Ears, nose, mouth, and throat: sore throat and Respiratory: Positive for acute cough Cardiovascular: Negative Hematologic/lymphatic: Negative Musculoskeletal:Positive for back feeling achy Neurological: Negative Objective: BP 128/86 (BP SITE: LEFT ARM, BP POSITION: SITTING, BP CUFF SIZE: 11) Pulse 82 Temp 98.8 ??F (37.1 ??C) (Oral) Resp 16 Ht 1.651 m (5' 5 ) Wt 72.6 kg (160 lb) SpO2 98% BMI 26.63 kg/m2 Skin: Physical Exam Exam General appearance: alert, cooperative, no distress, oriented to person, place, and time, wellappearing Head: normocephalic, without trauma Eyes: sclera and conjunctiva clear, EOMI and PERRLA, lids normal Ears: canals clear, tympanic membranes normal, hearing intact to voice Nose: nares open; no septal deviation is noted, no maxillary tenderness, clear rhinorrhea Throat: no mucous membrane abnormalities, lips, mucosa, and tongue normal; teeth and gums normal, no tonsillar hypertrophy, no exudates present, uvula midline Neck: range of motion is intact, no adenopathy Nodes: no cervical adenopathy Lungs: breath sounds normal and symmetric; no rales or wheezes. No cough noted during exam Heart: regular rhythm, normal S1 and S2, without murmurs, gallops or rubs Neurologic: mental status normal; alert and oriented X 3 Recent Results (from the past 24 hour(s)) STREP A SCREEN Collection Time: 12/05/18 12:41 PM Result Value Ref Range Strep A Rapid POCT Negative Negative Strep A Internal Control Present Lot # [id number] Expiration Date 04 03 2020 Assessment: . Encounter Diagnoses Name Primary? Nasopharyngitis Yes Plan: You have been diagnosed with a viral infection. -Viral infections do not improve with antibiotics. -Viral symptoms can linger from 7-14 days -The color of discharge does not always reflect the need for an antibiotic, even during a viral illness it is normal for drainage to change from yellow to green at times. -Please refer to the CDC Get Smart (cdc.gov/getsmart) campaign for more details. There are many OTC medications and supportive care measures you can try to treat your symptoms until your symptoms resolve. -Tylenol or Ibuprofen for aches, pains. Take per package directions -Antihistamines like Claritin or Benadryl as needed for drainage. Take per package directions -Delsym as needed for coughing. Follow package directions -Frequent cough drops and lozenges -Increase fluids, especially decaffeinated ones -Sleep with head of bed raised to promote drainage -Avoid spreading the virus by remaining at home and away from others until you are fever-free (temperature below 100) for 24 hours. Good handwashing and covering your mouth when coughing are also important. If you are not improving or worsening in the next 5-7 days you must RETURN to the clinic, go to your PCP, or Urgent Care/ER to be SEEN and reevaluated. No further prescriptions or refills will be given by phone without another evaluation. If you develop a high fever 103+, neck stiffness, trouble breathing, chest pain, or other life threatening symptoms GO TO THE ER IMMEDIATELY. Orders Placed This Encounter ??? STREP A SCREEN Continue to follow up with Willy Gant MD as directed. After Visit Summary reviewed with patient. The patient indicates understanding of these issues and agrees with the plan. Patient discharged to Home .MARIELA Cleary 12/05/2018 1:06 PM documented in this encounter Plan of Treatment Not on file documented as of this encounter Procedures Procedure Name Priority Date/Time Associated Diagnosis Comments STREP A SCREEN - POINT OF CARE (AMB) STL Routine 12/05/2018 12:41 PM CDT Nasopharyngitis documented in this encounter Results * STREP A SCREEN (12/05/2018 12:41 PM CDT) Strep A Rapid POCT Negative Negative Strep A Internal Control Present Lot # [id number] Expiration Date 04 03 2020 Throat ENTIRE THROAT (SURFACE REGION OF NECK) / Unknown 12/05/2018 12:41 PM CDT Selene Carson HAND BUFFING WHEEL FORMER-HAND TUBE WINDER LAB - POINT OF CARE ORDERABLES documented in this encounter Visit Diagnoses Diagnosis Nasopharyngitis- Primary Acute nasopharyngitis (common cold) documented in this encounter Care Teams Mine Production Engineer Relationship Specialty Start Date End Date Willy Gant MD [address] [place] [address] [place] [phone] PCP - General Family Medicine 12/05/18 documented as of this encounter
--- OUTSIDE RECORDS SUMMARY | 2024-04-08 16:57 | XMS_ITS | Referral Summary ---
Author Organization [facility] Address [address] [place] [address] Care Team Providers Care Piece Work Inspector Name Role Phone Willy Gant MD Primary Care Provider [phone] Source Comments [facility],non-owned Affiliates and Associated Physician Practices is amultiple site organization consisting of ambulatory clinics and hospital sitesin [place], [place], [place] and [place]. This disclosure is being madepursuant to the Care Everywhere program and may not contain all information available regarding this patient. Last updated 17.[facility] Allergies Active Allergy Reactions Criticality Noted Date Comments Cephalosporins Urticaria,Swelling Medium 12/05/2018 Penicillins Urticaria,Swelling Medium 12/05/2018 Sulfa Drugs Unknown 12/05/2018 Medications Be aware that medications may not [...] Mass Index 26.63 12/05/2018 12:37 PM CDT Plan of Treatment Not on file Care Teams Piece Work Inspector Relationship Specialty Start Date End Date Willy Gant MD [address] [phone] PCP - General Family Medicine 12/05/18
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
--- OUTSIDE RECORDS SUMMARY | 2024-04-08 16:57 | XMS_ITS | Encounter Summary ---
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
--- OUTSIDE RECORDS SUMMARY | 2024-04-08 16:57 | XMS_ITS | Continuity of Care Document ---
Author Organization [facility], [facility] Address [address] [address] Assessment No assessment recorded. Plan of Treatment Reminders Order Date Submit Date Provider Last Modified By Organization Details Last Modified Time Details Appointments ANY 15 2024 04:15P Raoul Gant MD Not available Not available Not available Lab None recorded . Referral None recorded . Procedures None recorded . Surgeries None recorded . Imaging None recorded . Medication Orders dextroam phetamin e-amphet amine ER 30 mg 24hr capsule, extend release 2023 024 [id number], [address], [place], [place], [id number], 01/03/2024 19:10:46 Patient TargetsNo targets recorded. Patient InstructionsNo instructions recorded. Reason for Referral None Reported. Problems Name Problem SNOMED Code Status Onset Date Resolution Date Notes Provider Name and Address Organization Details Recorded Time Gastroesophage al reflux disease without esophagitis 240648815 Active 2023 Willy Gant MD Attn: [address] [place], [address], [facility] 4 16:17:30 Generalized anxiety disorder 33978731 Active 2023 Willy Gant MD Attn: [address] [place], [address], [facility] 4 16:17:31 Chronic insomnia 495684214 Active 2023 Willy Gant MD Attn: [address] [place], [address], [facility] 4 16:17:32 Attention deficit hyperactivity disorder, predominantly inattentive type 79996359 Active 2023 Willy Gant MD Attn: [address] lara,[address] [facility], [place], [address], [facility] 4 16:17:33 Obesity 438390142 Active 2023 Willy Gant MD Attn: [address] [facility], [place], [address], [facility] 4 16:19:16 Problem Notes None recorded. Procedures Surgical History Date Name Laterality Status Provider Name and Address Organization Details Recorded Time Appendectomy completed Alejandrina Varela MA [facility] 06/01/2023 15:48:38 section completed Neeru Varela MA [facility] 06/01/2023 15:48:43 Imaging Results None recorded. Procedure Notes None recorded. Medical Equipment None Reported. Allergies Allergen ID Allergen Name Allergen Category Reaction Reaction Severity Criticality Documentation Date Start Date Code Code System Note Provider Name and Address Organization Details Recorded Time 917722 Medicinal product containin g penicilli n and acting as antibacte rial agent (product) medicatio n Not available Not available Not available 06/01/2023 50809 05 [facility] T[facility] Dick, [facility] 4 15:47:36 911865 Substance with sulfonami de structure and antibacte rial mechanism of action (substanc e) medicatio n Not available Not available Not available 06/01/2023 96120 8003 [facility] T[facility] Dick, [facility] 4 15:47:49 208854 Medicinal product containin g cephalosp etta and acting as antibacte rial agent (product) medicatio n Not available Not available Not available 06/01/2023 95843 9009 [facility] 4 15:48:09 Medications Name Sig Start Date Stop Date Status Note LastModified by Organization Details LastModified Time promethazin e-DM 6.25 mg-15 mg/5 mL oral syrup TAKE 5 MILLILITE RS BY MOUTH EVERY 4 - 6 HOURS NEEDED FOR COUGH 06/01 completed Not Available Not Available Not Available doxycycline hyclate 100 mg capsule Take 1 capsule twice a day by oral route for 7 days. 2024 active Not Available Not Available Not Avai lable sucralfate 1 gram tablet TAKE 1 TABLET BY MOUTH 4 TIMES A DAY FOR 14 DAYS. 06/01 completed Not Available Not Available Not Available prednisone 20 mg tablet TAKE 2 TABLETS BY MOUTH DAILY FOR 5 DAYS 06/01 completed Not Available Not Available Not Available dextroamphe tamine-amph etamine 30 mg tablet TAKE 1 TABLET BY MOUTH TWICE A DAY active Not Available Not Available No t Available terbinafine HCl 250 mg tablet TAKE 2 TABLETS BY MOUTH EVERY DAY FOR 7 DAYS active Not Available Not Available No t Available prednisolon e acetate 1 % eye drops,suspe nsion INSTILL 1 DROP INTO BOTH EYES THREE TIMES DAILY FOR 14 DAYS. 06/01 completed Not Available Not Available Not Available pantoprazol e 40 mg tablet,clarice yed release TAKE 1 TABLET BY MOUTH 2 TIMES A DAY FOR 14 DAYS. 06/01 completed Not Available Not Available Not Available buspirone 10 mg tablet TAKE 1 TABLET BY MOUTH EVERY DAY 10/04 completed Not Available Not Available Not Available hydroxyzine HCl 25 mg tablet Take 1 tablet 3 times a day by oral route as needed for 30 days. active Not Available Not Available No t Available methylpredn isolone 4 mg tablets in a dose pack 10/04 completed Not Available Not Available Not Available dextroamphe tamine-amph etamine ER 30 mg 24hr capsule,ext end release Take 1 capsule every day by oral route for 30 days. 2024 active Not Available Not Available Not Avai lable lisdexamfet amine 30 mg capsule 10/04 completed Not Available Not Available Not Available Slynd 4 mg (28) tablet TAKE 1 TABLET BY MOUTH EVERY DAY 10/04 completed Not Available Not Available Not Available Wegovy 0.25 mg/0.5 mL subcutaneou s pen injector Inject 0.25 mg every week by subcutane ous route for 30 days. 2024 active Not Available Not Available Not Avai lable Vitals Date Recorded Body height Body mass index (BMI) Body weight Body temperature Oxygen saturation Oxygen saturation in Arterial blood by Pulse oximetry Heart rate Systolic blood pressure Diastolic blood pressure Provider Name and Address Organization Details Last Updated DateTime 162.56 cm 35.7 kg/m2 47010.9 1 g 97.6 [degF] 100 % 100 % 89 /min 118 mm[Hg] 72 mm[Hg] Alejandrina Varela MA [facility] 15:24:46 Social History Question Answer Notes LastModified by Organizat ion Details LastModified Time Tobacco Smoking Status Current Every Day Smoker Abi Delarosa MA [facility], [facility] 08/31/2023 15:58:06 What Is Your Level Of Alcohol Consumption? Occasional Information not available 06/01/2023 What Was The Date Of Your Most Recent Tobacco Screening? 04/05/2024 Information not available 04/05/2024 Do You Use Any Illicit Or Recreational Drugs? No Information not available 08/31/2023 Has Tobacco Cessation Counseling Been Provided? Yes Information not available 08/31/2023 On What Date Was Tobacco Cessation Counseling Provided? 04/05/2024 Information not available 04/05/2024 Do You Or Have You Ever Used Any Other Forms Of Tobacco Or Nicotine? No Information not available 08/31/2023 Sex: Unknown Functional Status None recorded. Mental Status None recorded. Family History Relationship Description Onset Age of this Age Resolved Age Notes LastModified by Organization Details LastModified Time Father Hypertensive disorder [email or web address] Not available 2023 15:48:21 Father Dementia cheuerma Not available 08/31/2023 15:57:07 Sister Attention deficit hyperactivit y disorder cheuerma Not available 08/30 15:56:59 Brother Attention deficit hyperactivit y disorder cheuerma Not available 08/30 15:56:59 Mother Diabetes mellitus cheuerma Not available 2023 15:57:16 Mother Disorder of thyroid gland cheuerma Not available 2023 15:57:24 Mother Heart disease cheuerma Not available 2023 15:57:31 Medical History Condition Response Coronary Artery Disease N Other N High Blood Pressure N Atrial Fibrillation N Thyroid Problems N Kidney or Bladder Problems N GI Problems N Depression N COPD N Blood Clots N Skin Problems N Eating Disorder N Anemia N Heart Attack ([place]) N Anxiety Disorder Y Diabetes N Muscle, Joint, or Bone Problems N Arthritis N Seizures/Epilepsy N Acid Reflux (GERD) N Cancer N Stroke N Asthma N Allergies Y ADHD Y Substance Abuse N High Cholesterol N Hepatitis N Liver Disease N Schizophrenia N Headaches N Heart Failure N Osteoporosis N Gynecological HistoryNo gynecological history recorded. Obstetrics History GPAL:G 0 P 0 0 0 0 Past Encounters Encounter ID Performer Location Encounter Start Date Encounter Closed Date Diagnosis/Indication Diagnosis SNOMED-CT Code Diagnosis ICD10 Code [id number] Willy Gant MD [facility] [address] [address] 01/03/2024 15:16:34 01/05/2024 13:05:20 Attention deficit hyperactivity disorder, predominantly inattentive type 67509264 F90.0 Chronic insomnia 7461962 04 F51.04 Gastroesop hageal reflux disease without esophagitis 896885801 K21.9 Generalize d anxiety disorder 07463940 F41.1 Obesity 599788385 E66.9 Seasonal a llergic rhinitis 345669119 J30.2 Health Concerns Section Related Observation LastModified by Organization Detai ls LastModified Time None Recorded Concern Status LastModified by Organization Details LastModified Time None Recorded Payers Encounter Date Sequence Insurance Name Policy Number Policy Chiu Covered Member ID Chiu Member ID Guarantor Name 01/03/2024 2 [place] [employer] [place] [employer] Alise Augustine [id number] Alise Augustine 01/03/2024 1 [place] [id number] Alise Augustine [id number] Alise Augustine Notes Date Note Type Note Provider Name and Address Organization Details Recorded Time 01/03/2024 text/html states that she has been forgetting her afternoon dose would like to go to the xr. the insomnia is under contorl the anxiety is under contorl has been having constipation she is using hte fiber gummies nad miralax with success has been watching her diet the allergies are under control Willy Gant MD Attn: [address] [facility], [place], [address], [facility] 01/03/2024 19:10:41 OBGyn Episode No OBEpisode recorded.
--- OUTSIDE RECORDS SUMMARY | 2024-04-08 16:57 | XMS_ITS | Clinical Summary ---
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 Gender Identity Not on file Sexual Orientation Not on file Plan of Treatment Health Maintenance Due Date Last Done Comments Hepatitis C Virus (HCV) Screening 1992 TdaP Immunization 1992 Hepatitis B Immunization (1 of 3 - 19+ 3-dose series) 08/16/2011 Pap Smear 2013 Cervical Cancer Screening (CCS) 2022 HPV/Cotest 2022 SARS-COV-2 Immunization ( season) 2022 Influenza Immunization (Season Ended) 2023 01/16/2020, 02/12/2019, 01/28/2014 DTaP/Tdap/Td Immunization Discontinued 04/05/2014 Meningococcal Immunization (ACWY) Aged Out No longer eligible based on patient's age to complete this topic Pneumococcal Immunization Combined Aged Out No longer eligible based on patient's age to complete this topic Rotavirus Immunization Aged Out No lo nger eligible based on patient's age to complete this topic Insurance [facility]
--- OUTSIDE RECORDS SUMMARY | 2024-04-08 16:57 | XMS_ITS | Data Portability ---
Author Organization [facility] Address [address] [place] [address] Assessment No assessment recorded. Plan of Treatment Reminders Order Date Submit Date Provider Last Modified By Organization Details Last Modified Time Details Appointments ANY 15 2024 04:15P Raoul Gant MD Not available Not available Not available Lab lipid panel, serum 2023 024 [facility], [address], [place], [address], 10/12/2023 09:29:48 CBC w/ auto diff 2023 024 [employer] [facility], [address], [place], [address], 10/12/2023 09:29:48 CMP, serum or plasma 2023 024 [employer] [facility], [address], [place], [address], 10/12/2023 09:29:47 lipid panel, serum 2023 024 [facility], [address] [place], [address], 10/12/2023 09:02:00 CBC w/ auto diff 2023 024 [facility] [facility], [address], [place], [address], 10/12/2023 09:02:00 CMP, serum or plasma 2023 024 [employer] [facility], [address], [place], [address], 10/12/2023 09:02:00 Referral None recorded. Procedures None recorded. Surgeries None recorded. Imaging None recorded. Medication Orders hydroxyzi ne HCl 25 mg tablet 2023 024 [email or web address] [facility] [address] In [facility], [address] [place] [address], [address], 06/01/2023 19:13:59 Vyvanse 30 mg capsule 2023 024 [facility] [address] In [facility], [address] [place] [address], [address], 10/05/2023 17:13:41 hydroxyzi ne HCl 25 mg tablet [address] [address] In [facility], [address] [place] [address], [address], 08/31/2023 15:37:07 dextroamp hetamine- amphetami ne 30 mg tablet 2023 024 [email or web address] [facility] [address], [address], 01/03/2024 15:33:37 dextroamp hetamine- amphetami ne ER 30 mg 24hr capsule,e xtend release 2023 024 [facility], [address], [place], [place], [id number], 01/03/2024 19:10:46 Wegovy 0.25 mg/0.5 mL subcutane ous pen injector [email or web address] [place] [address] [facility], [address], [place], [place], [id number], 04/05/2024 18:14:55 doxycycli ne hyclate 100 mg capsule 2024 025 [email or web address] [facility]50287, [address], [place], [place], [id number], 04/05/2024 17:33:05 dextroamp hetamine- amphetami ne ER 30 mg 24hr capsule,e xtend release 2024 025 BANG [facility]48560, [address], [place], [place], [id number], 04/05/2024 20:59:33 Patient TargetsNo targets recorded. Patient Instructions Encounter Date Encounter Id Patient Instructions Last Modified By Organization Details Last Modified Time 06/01/2023 [id number] A healthy lifestyle: care instructions Not available 06/01/2023 16:48:21 08/31/2023 [id number] Quitting Tobacco : Care Instructions Not available 08/31/2023 16:34:16 A healthy lifestyle: care instructions Not available 08/31/2023 15:37:07 04/05/2024 [id number] A healthy lifestyle: care instructions Not available 04/05/2024 17:33:05 Reason for Referral None Reported. Results Created Date Observation Date Name Description Value Unit Range Abnormal Flag Note LastModifiedBy Organization Detail LastModifiedTime 10/05/1910/28/2023 FUNGU S (MYCO LOGY) CULTU RE fungus (mycology) culture Final report abnormal Not Available [facility] ([facility]) [address] [facility], [place], [address], 10/28/2023 20:10:03 10/05/1910/28/2023 FUNGU S (MYCO LOGY) CULTU RE result 1 Epicoc cum specie s abnormal Not Available [facility] ([facility]) [address] [facility], [place], [address], 10/28/2023 20:10:03 10/05/19 24 10/28/2023 FUNGU S (MYCO LOGY) CULTU RE result 2 Altern aria altern mark abnormal Not Available [facility] ([facility]) [address] [facility], [place], [address], 10/28/2023 20:10:03 10/05/19 24 10/28/2023 FUNGU S (MYCO LOGY) CULTU RE result 3 Curvul aria specie s abnormal Not Available [facility] ([facility]) [address] [facility], [place], [address], 10/28/2023 20:10:03 10/11/19 24 10/12/2023 LIPID PANEL , STAND NICHELLE cholesterol, total 152 mg/dL <200 normal Not Available [address] [address] [place], [address], 10/12/2023 04:04:28 10/11/19 24 10/12/2023 LIPID PANEL , STAND NICHELLE HDL cholesterol 57 mg/dL > or = 50 normal Not Available [address] [place], [address], 10/12/2023 04:04:28 10/11/19 24 10/12/2023 LIPID PANEL , STAND NICHELLE triglyceride s 41 mg/dL <150 normal Not Available [address] [address] [place], [address], 10/12/2023 04:04:28 10/11/19 24 10/12/2023 LIPID PANEL , STAND NICHELLE LDL-choleste rol 83 mg/dL _(helen c) normal Refer ence range : <100 Jerod able range <100 mg/dL for prima ry preve ntion ; <70 mg/dL for patie nts with CHD or diabe tic patie nts with > or = 2 CHD risk facto rs. LDL-C is now calcu lated using the Darleen n-Hop kins lorena child n, which is a valid ated novel metho d provtrena briones than the Fried hernesto equat ion in the estim ation of LDL-C . Darleen n SS et al. CATRINA. 2013; 310(9 6): 2061- 2068 (http ://ed chunati on.Misael Maria arcadioAthletePath. com/f aq/FA Q164) Not Available [address], [address], 10/12/2023 04:04:28 10/11/19 24 10/12/2023 LIPID PANEL , STAND NICHELLE chol/HDLC ratio 2.7 (calc ) <5.0 normal Not Available [address], [address], 10/12/2023 04:04:28 10/11/19 24 10/12/2023 LIPID PANEL , STAND NICHELLE non HDL cholesterol 95 mg/dL _(helen c) <130 normal For patie nts with diabe randy plus 1 major ASCVD risk facto r, treat ing to a non-H DL-C goal of <100 mg/dL (LDL- C of <70 mg/dL ) is consi jenniferd a mirta benitez c optio n. Not Available [address], [address], 10/12/2023 04:04:28 10/11/19 24 10/12/2023 COMPR EHENS IJMMIE METAB OLIC PANEL glucose 86 mg/dL 65-99 normal Fasti ng refer ence inter sharon Not Available [address], [address], 10/12/2023 04:04:29 10/11/19 24 10/12/2023 COMPR EHENS JIMMIE METAB OLIC PANEL urea nitrogen (BUN) 13 mg/dL 7-25 normal Not Available [address], [address], 10/12/2023 04:04:29 10/11/19 24 10/12/2023 COMPR EHENS JIMMIE METAB OLIC PANEL creatinine 0.81 mg/dL 0.50-0 .97 normal Not Available [address], [address], 10/12/2023 04:04:29 10/11/19 24 10/12/2023 COMPR EHENS JIMMIE METAB OLIC PANEL eGFR 99 mL/mi n/1.7 3m2 > or = 60 normal Not Available [address], [address], 10/12/2023 04:04:29 10/11/19 24 10/12/2023 COMPR EHENS JIMMIE METAB OLIC PANEL BUN/creatini ne ratio SEE NOTE: (calc ) 6-22 Not Repor hawa: BUN and Creat inine are withi n refer ence range . Not Available [address], [address], 10/12/2023 04:04:29 10/11/19 24 10/12/2023 COMPR EHENS JIMMIE METAB OLIC PANEL sodium 138 mmol/ L 135-14 6 normal Not Available [address], [address], 10/12/2023 04:04:29 10/11/19 24 10/12/2023 COMPR EHENS JIMMIE METAB OLIC PANEL potassium 4.4 mmol/ L 3.5-5. 3 normal Not Available [address], [address], 10/12/2023 04:04:29 10/11/19 24 10/12/2023 COMPR EHENS JIMMIE METAB OLIC PANEL chloride 104 mmol/ L 98-110 normal Not Available [address], [address], 10/12/2023 04:04:29 10/11/19 24 10/12/2023 COMPR EHENS JIMMIE METAB OLIC PANEL carbon dioxide 28 mmol/ L 20-32 normal Not Available [address] [place], [address], 10/12/2023 04:04:29 10/11/19 24 10/12/2023 COMPR EHENS JIMMIE METAB OLIC PANEL calcium 9.3 mg/dL 8.6-10 .2 normal Not Available [facility] [address], [address], 10/12/2023 04:04:29 10/11/19 24 10/12/2023 COMPR EHENS JIMMIE METAB OLIC PANEL protein, total 6.9 g/dL 6.1-8. 1 normal Not Available [facility] [address], [address], 10/12/2023 04:04:29 10/11/19 24 10/12/2023 COMPR EHENS JIMMIE METAB OLIC PANEL albumin 4.1 g/dL 3.6-5. 1 normal Not Available [facility] [address], [address], 10/12/2023 04:04:29 10/11/19 24 10/12/2023 COMPR EHENS JIMMIE METAB OLIC PANEL globulin 2.8 g/dL_ (calc ) 1.9-3. 7 normal Not Available [facility] [address], [address], 10/12/2023 04:04:29 10/11/19 24 10/12/2023 COMPR EHENS JIMMIE METAB OLIC PANEL albumin/glob ulin ratio 1.5 (calc ) 1.0-2. 5 normal Not Available [facility] [address], [address], 10/12/2023 04:04:29 10/11/19 24 10/12/2023 COMPR EHENS JIMMIE METAB OLIC PANEL bilirubin, total 0.6 mg/dL 0.2-1. 2 normal Not Available [facility] [address], [address], 10/12/2023 04:04:29 10/11/19 24 10/12/2023 COMPR EHENS JIMMIE METAB OLIC PANEL alkaline phosphatase 57 U/L 31-125 normal Not Available [facility] [employer] [address], [address], 10/12/2023 04:04:29 10/11/19 24 10/12/2023 COMPR EHENS JIMMEI METAB OLIC PANEL AST 13 U/L 10-30 normal Not Available [address], [address], 10/12/2023 04:04:29 10/11/19 24 10/12/2023 COMPR EHENS JIMMIE METAB OLIC PANEL ALT 16 U/L 6-29 normal Not Available [address], [address], 10/12/2023 04:04:29 10/11/19 24 10/12/2023 CBC (INCL UDES DIFF/ PLT) white blood cell count 5.9 thous and/u L 3.8-10 .8 normal Not Available [address], [address], 10/12/2023 04:04:29 10/11/19 24 10/12/2023 CBC (INCL UDES DIFF/ PLT) red blood cell count 4.48 adolfo on/uL 3.80-5 .10 normal Not Available [address], [address], 10/12/2023 04:04:29 10/11/19 24 10/12/2023 CBC (INCL UDES DIFF/ PLT) hemoglobin 11.3 g/dL 11.7-1 5.5 low Not Available [address], [address], 10/12/2023 04:04:29 10/11/19 24 10/12/2023 CBC (INCL UDES DIFF/ PLT) hematocrit 35.5 % 35.0-4 5.0 normal Not Available [address], [address], 10/12/2023 04:04:29 10/11/19 24 10/12/2023 CBC (INCL UDES DIFF/ PLT) MCV 79.2 fL 80.0-1 00.0 low Not Available [address], [address], 10/12/2023 04:04:29 10/11/19 24 10/12/2023 CBC (INCL UDES DIFF/ PLT) MCH 25.2 pg 27.0-3 3.0 low Not Available [facility] [address], [address], 10/12/2023 04:04:29 10/11/19 24 10/12/2023 CBC (INCL UDES DIFF/ PLT) MCHC 31.8 g/dL 32.0-3 6.0 low Not Available [address], [address], 10/12/2023 04:04:29 10/11/1910/12/2023 CBC (INCL UDES DIFF/ PLT) RDW 13.9 % 11.0-1 5.0 normal Not Available [address], [address], 10/12/2023 04:04:29 10/11/19 24 10/12/2023 CBC (INCL UDES DIFF/ PLT) platelet count 314 thous and/u L 140-40 0 normal Not Available [facility] [address], [address], 10/12/2023 04:04:29 10/11/1910/12/2023 CBC (INCL UDES DIFF/ PLT) MPV 11.3 fL 7.5-12 .5 normal Not Available [facility] [address], [address], 10/12/2023 04:04:29 10/11/19 24 10/12/2023 CBC (INCL UDES DIFF/ PLT) absolute neutrophils 3416 cells /uL 1500-7 800 normal Not Available [address], [address], 10/12/2023 04:04:29 10/11/19 24 10/12/2023 CBC (INCL UDES DIFF/ PLT) absolute lymphocytes 1800 cells /uL 850-39 00 normal Not Available [address], [address], 10/12/2023 04:04:29 10/11/19 24 10/12/2023 CBC (INCL UDES DIFF/ PLT) absolute monocytes 478 cells /uL 200-95 0 normal Not Available [address], [address], 10/12/2023 04:04:29 10/11/19 24 10/12/2023 CBC (INCL UDES DIFF/ PLT) absolute eosinophils 189 cells /uL 15-500 normal Not Available [address], [address], 10/12/2023 04:04:29 10/11/19 24 10/12/2023 CBC (INCL UDES DIFF/ PLT) absolute basophils 18 cells /uL 0-200 normal Not Available [address], [address], 10/12/2023 04:04:29 10/11/19 24 10/12/2023 CBC (INCL UDES DIFF/ PLT) neutrophils 57.9 % normal Not Available [address], [address], 10/12/2023 04:04:29 10/11/19 24 10/12/2023 CBC (INCL UDES DIFF/ PLT) lymphocytes 30.5 % normal Not Available [address], [address], 10/12/2023 04:04:29 10/11/19 24 10/12/2023 CBC (INCL UDES DIFF/ PLT) monocytes 8.1 % normal Not Available [address], [address], 10/12/2023 04:04:29 10/11/19 24 10/12/2023 CBC (INCL UDES DIFF/ PLT) eosinophils 3.2 % normal Not Available [facility] [address], [address], 10/12/2023 04:04:29 10/11/19 24 10/12/2023 CBC (INCL UDES DIFF/ PLT) basophils 0.3 % normal Not Available [address], [address], 10/12/2023 04:04:29 Result Notes None recorded. Problems Name Problem SNOMED Code Status Onset Date Resolution Date Notes Provider Name and Address Organization Details Recorded Time Gastroesophage al reflux disease without esophagitis 613289145 Active 2023 Willy Gant MD Attn: [address] [place], [address], [place] [facility] 4 16:17:30 Generalized anxiety disorder 66201196 Active 2023 Willy Gant MD Attn: [address] [place], [address], [place] [facility] 4 16:17:31 Chronic insomnia 951184253 Active 2023 Willy Gant MD Attn: [address] [place], [address], [place] [facility] 4 16:17:32 Attention deficit hyperactivity disorder, predominantly inattentive type 96891331 Active 2023 Willy Gant MD Attn: [address] [place], [address], [place] [facility] 4 16:17:33 Obesity 829318113 Active 2023 Willy Gant MD Attn: [address] [facility], [place], [address], [facility] 4 16:19:16 Problem Notes None recorded. Procedures Surgical History Date Name Laterality Status Provider Name and Address Organization Details Recorded Time Appendectomy completed Alejandrina Varela MA [facility] 06/01/2023 15:48:38 section completed Neeru Varela MA [facility] 06/01/2023 15:48:43 Imaging Results None recorded. Procedure Notes None recorded. Medical Equipment None Reported. Allergies Allergen ID Allergen Name Allergen Category Reaction Reaction Severity Criticality Documentation Date Start Date Code Code System Note Provider Name and Address Organization Details Recorded Time 087644 Medicinal product containin g penicilli n and acting as antibacte rial agent (product) medicatio n Not available Not available Not available 06/01/2023 30666 05 [facility] Alejandrina Varela MA [facility] [place], [facility] 4 15:47:36 368717 Substance with sulfonami de structure and antibacte rial mechanism of action (substanc e) medicatio n Not available Not available Not available 06/01/2023 95159 8003 [facility] 4 15:47:49 076203 Medicinal product containin g cephalosp etta and acting as antibacte rial agent (product) medicatio n Not available Not available Not available 06/01/2023 89287 9009 [facility] Alejandrina Varela MA [facility] [place], [facility] 4 15:48:09 Medications Name Sig Start [...] Not Avai lable Vitals Date Recorded Body weight Body mass index (BMI) Body height Body temperature Oxygen saturation Oxygen saturation in Arterial blood by Pulse oximetry Heart rate Systolic blood pressure Diastolic blood pressure Provider Name and Address Organization Details Last Updated DateTime 4 71041.1 7 g 36.6 kg/m2 162.56 cm 97.6 [degF] 97 % 97 % 92 /min 120 mm[Hg] 78 mm[Hg] Alejandrina Varela MA [facility] 4 15:51:27 Date Recorded Body height Body mass index (BMI) Body weight Body temperature Oxygen saturation Oxygen saturation in Arterial blood by Pulse oximetry Heart rate Systolic blood pressure Diastolic blood pressure Provider Name and Address Organization Details Last Updated DateTime 4 162.56 cm 36.7 kg/m2 53353.7 7 g 97.6 [degF] 99 % 99 % 94 /min 118 mm[Hg] 70 mm[Hg] Alejandrina Varela MA [facility] 4 14:52:54 Date Recorded Body height Body temperature Body mass index (BMI) Body weight Oxygen saturation Oxygen saturation in Arterial blood by Pulse oximetry Heart rate Systolic blood pressure Diastolic blood pressure Provider Name and Address Organization Details Last Updated DateTime 4 162.56 cm 97.6 [degF] 36.2 kg/m2 50704.9 9 g 99 % 99 % 71 /min 110 mm[Hg] 70 mm[Hg] Alejandrina Varela MA [facility] 4 16:13:28 Date Recorded Body height Body mass index (BMI) Body weight Body temperature Oxygen saturation Oxygen saturation in Arterial blood by Pulse oximetry Heart rate Systolic blood pressure Diastolic blood pressure Provider Name and Address Organization Details Last Updated DateTime 4 162.56 cm 35.7 kg/m2 10027.9 1 g 97.6 [degF] 100 % 100 % 89 /min 118 mm[Hg] 72 mm[Hg] Alejandrina Varela MA [facility] 4 15:24:46 Date Recorded Body height Body mass index (BMI) Body weight Oxygen saturation Oxygen saturation in Arterial blood by Pulse oximetry Heart rate Systolic blood pressure Diastolic blood pressure Provider Name and Address Organization Details Last Updated DateTime 5 162.56 cm 36.1 kg/m2 79217.1 5 g 99 % 99 % 91 /min 122 mm[Hg] 72 mm[Hg] Alejandrina Varela MA [facility] 5 17:07:33 Social History Question Answer Notes LastModified by Organizat ion Details LastModified Time Tobacco Smoking Status Current Every Day Smoker Abi Delarosa MA [facility] [place], [place] [facility] 08/31/2023 15:58:06 What Is Your Level Of [...] Response Coronary Artery Disease N Other N Atrial Fibrillation N High Blood Pressure N Depression N COPD N Blood Clots N Anxiety Disorder Y Muscle, Joint, or Bone Problems N Arthritis N Acid Reflux (GERD) N Cancer N Stroke N ADHD Y High Cholesterol N Liver Disease N Schizophrenia N Headaches N Thyroid Problems N Kidney or Bladder Problems N GI Problems N Eating Disorder N Skin Problems N Anemia N Heart Attack ([place]) N Diabetes N Seizures/Epilepsy N Asthma N Allergies Y Substance Abuse N Hepatitis N Heart Failure N Osteoporosis N Gynecological HistoryNo gynecological history recorded. Obstetrics History GPAL:G 0 P 0 0 0 0 Past Encounters Encounter ID Performer Location Encounter Start Date Encounter Closed Date Diagnosis/Indication Diagnosis SNOMED-CT Code Diagnosis ICD10 Code [id number] Willy Gant MD [facility] [address] [place] [address] 06/01/2023 15:40:49 06/02/2023 10:12:54 Attention deficit hyperactivity disorder, predominantly inattentive type 68846757 F90.0 Chronic insomnia 1919196 04 F51.04 Generalize d anxiety disorder 25378856 F41.1 Gastroesop hageal reflux disease without esophagitis 976515580 K21.9 Seasonal a llergic rhinitis 290620166 J30.2 Obesity 515581700 E66.9 [id number] Willy Gant MD [facility] [address] [place] [address] 08/31/2023 14:42:37 09/01/2023 10:54:50 Attention deficit hyperactivity disorder, predominantly inattentive type 55408372 F90.0 Chronic insomnia 3523993 04 F51.04 Generalize d anxiety disorder 16000327 F41.1 Gastroesop hageal reflux disease without esophagitis 990683693 K21.9 Seasonal a llergic rhinitis 666418749 J30.2 Obesity 970246948 E66.9 Cholesterol screening 27 2542781 Z13.220 Smoker 47579273 F17.502 [id number] Willy Gant MD [facility] [address] [place] [address] 10/05/2023 15:53:39 10/10/2023 08:25:30 Attention deficit hyperactivity disorder, predominantly inattentive type 60990216 F90.0 Chronic insomnia 6806432 04 F51.04 Gastroesop hageal reflux disease without esophagitis 188211875 K21.9 Generalize d anxiety disorder 88239665 F41.1 Seasonal a llergic rhinitis 659950807 J30.2 Obesity 181240645 E66.9 Cholesterol screening 27 1669661 Z13.554 [id number] Willy Gant MD [facility] [address] [facility] [address] [place] [address] 01/03/2024 15:16:34 01/05/2024 13:05:20 Attention deficit hyperactivity disorder, predominantly inattentive type 80912222 F90.0 Chronic insomnia 1372627 04 F51.04 Gastroesop hageal reflux disease without esophagitis 941234979 K21.9 Generalize d anxiety disorder 84497657 F41.1 Obesity 367755553 E66.9 Seasonal a llergic rhinitis 288762858 J30.2 [id number] Willy Gant MD [facility] [address] [address] 04/05/2024 16:58:25 04/05/2024 20:59:33 Acute sinusitis 45177628 J01.90 Attention deficit hyperactivity disorder, predominantly inattentive type 05978223 F90.0 Chronic insomnia 3937898 04 F51.04 Gastroesop hageal reflux disease without esophagitis 244199487 K21.9 Generalize d anxiety disorder 00159269 F41.1 Obesity 510866337 E66.9 Health Concerns Section Related Observation LastModified by Organization Detai ls LastModified Time None Recorded Concern Status LastModified by Organization Details LastModified Time None Recorded Advance Directives Directive None Recorded Payers Encounter Date Sequence Insurance Name Policy Number Policy Chiu Covered Member ID Chiu Member ID Guarantor Name 06/01/2023 1 [facility] [id number] [facility] 08/31/2023 1 [place] [id number] Alise M Augustine [id number] [facility]/31/2023 2 [place] [facility] [id number] [facility] 10/05/2023 1 [place] [id number] Alise M Augustine [id number] Alise Burbank 10/05/2023 2 [place] [facility] [id number] [facility] 01/03/2024 2 [place] [facility] [id number] [facility] 01/03/2024 1 [place] [id number] Alise M Augustine [id number] [facility] 04/05/2024 2 [place] [facility] Alise Augustine [id number] [facility] 04/05/2024 1 [place] [id number] Alise Augustine [id number] Alise Augustine Notes Date Note Type Note Provider Name and Address Organization Details Recorded Time 06/01/2023 text/html presents to the office for initial evaluatoin staets that the add is under control the gerd is under control the allergies are under control adn the anxiety is not stable has been watching her diet. Willy Gant MD Attn: [address] [place], [address], [place] [facility] 06/01/2023 19:14:04 08/31/2023 text/html states that the add is undre control and wants to switch to vyvance. the insomia is not under control the gerd is under control adn the allergies are under contorl has been watching her diet. Willy Gant MD Attn: [address] [place], [address], [place] [facility] 08/31/2023 19:09:53 10/05/2023 text/html states that the vyvance is not working the insomnia is under control the gerd is under control and the anxiety is stable the allergies are under control has been watching her diet. Willy Gant MD Attn: [address] [place], [address], [place] [facility] 10/05/2023 18:49:09 01/03/2024 text/html states that she has been forgetting her afternoon dose would like to go to the xr. the insomnia is under contorl the anxiety is under contorl has been having constipation she is using hte fiber gummies nad miralax with success has been watching her diet the allergies are under control Willy Gant MD Attn: [address] [place], [address], [place] [facility] 01/03/2024 19:10:41 04/05/2024 text/html states that she has a sinus infection and she is on doxy. states that she is unable to lose weight and has tried everything. the add is under control the insomina is udner control hte gerd is stable and uses the pepcid as needed. Willy Gant MD Attn: [address] [place], [address], [place] [facility] 04/05/2024 20:59:31 OBGyn Episode No OBEpisode recorded.
--- OUTSIDE RECORDS SUMMARY | 2024-04-08 16:57 | XMS_ITS | Clinical Summary ---
Author Organization [facility] [employer] Address [address] [place] [address] Care Team Providers Care Construction Engineer Name Role Phone Willy Gant MD Primary Care Provider [phone] [facility] [facility],non-owned Affiliates and Associated Physician Practices is amultiple site organization consisting of ambulatory clinics and hospital sitesin [place], [place], [place] and [place]. This disclosure is being madepursuant to the Care Everywhere program and may not contain all information available regarding this patient. Last updated [facility] [employer] [facility] Allergies Active Allergy Reactions Criticality Noted Date [...] 12/05/2018 12:37 PM CDT Plan of Treatment Health Maintenance Due Date Last Done Comments PAP SMEAR 1992 PNEUMOCOCCAL VACCINE (1 of 2 - PCV) 1998 HIV SCREENING 08/16/2007 HEPATITIS C SCREENING 08/11/2010 DTAP/TDAP/TD VACCINES (1 - Tdap) 08/16/2011 HEPATITIS B VACCINE (1 of 3 - 19+ 3-dose series) 08/16/2011 COVID-19 VACCINE (1 - 2023-2 5 season) 2023 INFLUENZA VACCINE (#1) 2023 01/28/2014 DEPRESSION SCREENING 04/04/2024 ZOSTER VACCINE (1 of 2) 2042 HIB VACCINE Aged Out No longer eligi ble based on patient's age to complete this topic HPV VACCINE Aged Out No longer eligi ble based on patient's age to complete this topic MENINGOCOCCAL VACCINE Aged Out No antonio mickie eligible based on patient's age to complete this topic Care Teams Construction Engineer Relationship Specialty Start Date End Date Willy Gant MD [address] [place] [id number] PCP - General Family Medicine 12/05/18
--- OUTSIDE RECORDS SUMMARY | 2024-04-08 16:57 | XMS_ITS | Encounter Summary ---
Author Organization [facility] Address [address] [place] [address] Care Team Providers Care Clinical Education Coordinator Name Role Phone Unavailable Primary Care Provider Unavailabl e Encounter Details Date Type Department Care Team (Late st Contact Info) Description 02/18/2020 Lab Requisition [facility] Testing [facility] [address] [place] [address] [place] [address] [facility] [place] [address] Social History Tobacco Use Types Packs/Day Years Used Date Smoking Tobacco: Never Assessed Comments Unknown Sex and Gender Information Value Date Recorded Sex Assigned at Not on file Legal Sex Female 11:06 AM BOBJ DEVELOPER Gender Identity Not on file Sexual Orientation Not on file documented as of this encounter Plan of Treatment Not on file documented as of this encounter Procedures Procedure Name Priority Date/Time Associated Diagnosis Comments SARS-COV-2 PCR [facility] ONLY Routine 02/18/2020 12:17 PM BOBJ DEVELOPER documented in this encounter Visit Diagnoses Not on filedocumented in this encounter
--- OUTSIDE RECORDS SUMMARY | 2024-04-08 16:58 | XMS_ITS | Data Portability ---
Author Organization [facility] Address [address] [place] [address] Assessment No assessment recorded. Plan of Treatment Reminders Order Date Submit Date Provider Last Modified By Organization Details Last Modified Time Details Appointments None recorded . Lab pregnanc y test, urine 2014 015 [email or web address] In-Office Order, Internal Use Only DO Not Attach Compendium DO Not Attach Compendium, Do Not Delete/merge, [id number] 5 11:31:23 pregnanc y test, urine 2014 015 [email or web address] In-Office Order, Internal Use Only DO Not Attach Compendium DO Not Attach Compendium, Do Not Delete/merge, [id number] 5 14:50:38 urinalys is, dipstick 2016 017 [email or web address] In-Office Order, Internal Use Only DO Not Attach Compendium DO Not Attach Compendium, Do Not Delete/merge, [id number] 7 12:50:43 pregnanc y test, urine 2016 017 [email or web address] In-Office Order, Internal Use Only DO Not Attach Compendium DO Not Attach Compendium, Do Not Delete/merge, [id number] 7 12:50:43 RPR (rapid plasma reagin), serum 2016 017 [facility], [address] [place] [address], [address], [place], [address], 7 06:14:10 hsv-2 (herpes simplex virus type 2) igg Ab, serum 2016 017 [facility], [address], [address], [place], [address], 7 06:14:10 hepatiti s panel (A+B+C), acute, serum 2016 017 [facility], [address], [address], [place], [address], 7 06:14:09 hepatiti s B surface Ab, qualitat jimmie, serum 2016 017 [facility], [address], [address], [place], [address], 7 06:14:09 HIV 1+2 AB + HIV 1 p24 Ag, qualitat jimmie immunoas say, serum 2016 017 [facility], [address], [place], [address], 7 06:14:10 HCG, intact + beta subunit, quant, serum or plasma 2019 020 [facility], [address], [address], [place], [address], 0 08:15:19 pap, IG + HPV, cervical 2019 020 [facility], [address], [place], [address], 0 06:08:03 urinalys is, dipstick 2019 020 [email or web address] In-Office Order, Internal Use Only DO Not Attach Compendium DO Not Attach Compendium, Do Not Delete/merge, [id number] 0 16:27:26 pregnanc y test, urine 2019 020 [email or web address] In-Office Order, Internal Use Only DO Not Attach Compendium DO Not Attach Compendium, Do Not Delete/merge, [id number] 0 16:27:26 bacteria l vaginosi s panel, vaginal 2019 020 [facility], [address], [place], [address], 0 06:04:53 culture, vaginal/ rectal, streptoc occus group B 2019 020 [facility], [address], [place], [address], 0 06:04:54 Referral None recorded . Procedures None recorded . Surgeries None recorded . Imaging None recorded . Medication Orders Viibryd 40 mg tablet 2014 015 [id number], [address] [place], [address], 0 16:23:26 Nexplano n 68 mg subderma l implant 2014 015 [facility] Not available 0 16:23:06 Xulane 150 mcg-35 mcg/24 hr transder mal patch 2014 015 [id number], [address] [place], [address], 0 16:23:30 multivit colorado tablet 2019 020 [facility], [address], [place], [address], 0 16:30:15 Calcium with Vitamin D 600 mg-10 mcg (400 unit) tablet 2019 020 [facility], [address], [place], [address], 0 16:30:19 Patient TargetsNo targets recorded. Patient Instructions Encounter Date Encounter Id Patient Instructions Last Modified By Organization Details Last Modified Time 10/29/2014 [id number] learning about mood disorders [email or web address] Not available 10/29/2014 11:31:23 10/31/2014 [id number] implant for control: care instructions [email or web address] Not available 10/31/2014 16:42:30 09/08/2016 [id number] condom use education [email or web address] Not available 09/08/2016 11:42:53 learning about control: condoms [email or web address] Not available 09/08/2016 11:42:53 Reason for Referral None Reported. Results Created Date Observation Date Name Description Value Unit Range Abnormal Flag Note LastModifiedBy Organization Detail LastModifiedTime 05/21/2019 urina lysis , dipst ick Leukocytes Small Not Available In-Offi ce Order Internal Use Only DO Not Attach Compendium DO Not Attach Compendium, Do Not Delete/merge, [id number] 05/21/2019 16:26:25 05/21/2019 urina lysis , dipst ick Nitrite negati ve Not Available In-Office Order Internal Use Only DO Not Attach Compendium DO Not Attach Compendium, Do Not Delete/merge, [id number] 05/21/2019 16:26:25 05/21/2019 urina lysis , dipst ick Urobilinogen .2 Not Available In-Of fice Order Internal Use Only DO Not Attach Compendium DO Not Attach Compendium, Do Not Delete/merge, [id number] 05/21/2019 16:26:25 05/21/2019 urina lysis , dipst ick Protein Negati ve Not Available In-Office Order Internal Use Only DO Not Attach Compendium DO Not Attach Compendium, Do Not Delete/merge, [id number] 05/21/2019 16:26:25 05/21/2019 urina lysis , dipst ick pH 7.0 Not Available In-Office Order Internal Use Only DO Not Attach Compendium DO Not Attach Compendium, Do Not Delete/merge, [id number] 05/21/2019 16:26:25 05/21/2019 urina lysis , dipst ick Blood Non-He molyze d: Trace Not Available In-Office Order Internal Use Only DO Not Attach Compendium DO Not Attach Compendium, Do Not Delete/merge, [id number] 05/21/2019 16:26:25 05/21/2019 urina lysis , dipst ick Specific [place] 1.025 Not Available In-Off ice Order Internal Use Only DO Not Attach Compendium DO Not Attach Compendium, Do Not Delete/merge, 05/21/2019 16:26:25 05/21/2019 urina lysis , dipst ick Ketone Negati ve Not Available In-Office Order Internal Use Only DO Not Attach Compendium DO Not Attach Compendium, Do Not Delete/merge, 05/21/2019 16:26:25 05/21/2019 urina lysis , dipst ick Bilirubin Negati ve Not Available In-Office Order Internal Use Only DO Not Attach Compendium DO Not Attach Compendium, Do Not Delete/merge, 05/21/2019 16:26:25 05/21/2019 urina lysis , dipst ick Glucose Negati ve Not Available In-Office Order Internal Use Only DO Not Attach Compendium DO Not Attach Compendium, Do Not Delete/merge, 05/21/2019 16:26:25 05/21/2019 pregn justin test, urine HCG negati ve Not Available In-Office Order Internal Use Only DO Not Attach Compendium DO Not Attach Compendium, Do Not Delete/merge, 05/21/2019 16:26:12 09/08/2016 pregn justin test, urine HCG negati ve Not Available In-Office Order Internal Use Only DO Not Attach Compendium DO Not Attach Compendium, Do Not Delete/merge, 09/08/2016 11:21:07 09/08/2016 urina lysis , dipst ick Leukocytes Small Not Available In-Offi ce Order Internal Use Only DO Not Attach Compendium DO Not Attach Compendium, Do Not Delete/merge, [id number] 09/08/2016 11:20:10 09/08/2016 urina lysis , dipst ick Nitrite negati ve Not Available In-Office Order Internal Use Only DO Not Attach Compendium DO Not Attach Compendium, Do Not Delete/merge, 09/08/2016 11:20:10 09/08/2016 urina lysis , dipst ick Urobilinogen .2 Not Available In-Of fice Order Internal Use Only DO Not Attach Compendium DO Not Attach Compendium, Do Not Delete/merge, 09/08/2016 11:20:10 09/08/2016 urina lysis , dipst ick Protein Negati ve Not Available In-Office Order Internal Use Only DO Not Attach Compendium DO Not Attach Compendium, Do Not Delete/merge, 09/08/2016 11:20:10 09/08/2016 urina lysis , dipst ick pH 6.5 Not Available In-Office Order Internal Use Only DO Not Attach Compendium DO Not Attach Compendium, Do Not Delete/merge, 09/08/2016 11:20:10 09/08/2016 urina lysis , dipst ick Blood Negati ve Not Available In-Office Order Internal Use Only DO Not Attach Compendium DO Not Attach Compendium, Do Not Delete/merge, 09/08/2016 11:20:10 09/08/2016 urina lysis , dipst ick Specific [place] 1.020 Not Available In-Off ice Order Internal Use Only DO Not Attach Compendium DO Not Attach Compendium, Do Not Delete/merge, 09/08/2016 11:20:10 09/08/2016 urina lysis , dipst ick Ketone Negati ve Not Available In-Office Order Internal Use Only DO Not Attach Compendium DO Not Attach Compendium, Do Not Delete/merge, 09/08/2016 11:20:10 09/08/2016 urina lysis , dipst ick Bilirubin Negati ve Not Available In-Office Order Internal Use Only DO Not Attach Compendium DO Not Attach Compendium, Do Not Delete/merge, 09/08/2016 11:20:10 09/08/2016 urina lysis , dipst ick Glucose Negati ve Not Available In-Office Order Internal Use Only DO Not Attach Compendium DO Not Attach Compendium, Do Not Delete/merge, 09/08/2016 11:20:10 12/10/2014 pregn justin test, urine HCG negati ve Not Available In-Office Order Internal Use Only DO Not Attach Compendium DO Not Attach Compendium, Do Not Delete/merge, 12/10/2014 10:44:16 10/29/2014 pregn justin test, urine HCG negati ve Not Available In-Office Order Internal Use Only DO Not Attach Compendium DO Not Attach Compendium, Do Not Delete/merge, 10/29/2014 11:06:26 10/03/2014 urina lysis , dipst ick Leukocytes Trace Not Available In-Offi ce Order Internal Use Only DO Not Attach Compendium DO Not Attach Compendium, Do Not Delete/merge, 10/03/2014 09:16:15 10/03/2014 urina lysis , dipst ick Nitrite negati ve Not Available In-Office Order Internal Use Only DO Not Attach Compendium DO Not Attach Compendium, Do Not Delete/merge, 10/03/2014 09:16:15 10/03/2014 urina lysis , dipst ick Urobilinogen .2 Not Available In-Of fice Order Internal Use Only DO Not Attach Compendium DO Not Attach Compendium, Do Not Delete/merge, 10/03/2014 09:16:15 10/03/2014 urina lysis , dipst ick Protein Negati ve Not Available In-Office Order Internal Use Only DO Not Attach Compendium DO Not Attach Compendium, Do Not Delete/merge, 10/03/2014 09:16:15 10/03/2014 urina lysis , dipst ick pH 5.5 Not Available In-Office Order Internal Use Only DO Not Attach Compendium DO Not Attach Compendium, Do Not Delete/merge, 10/03/2014 09:16:15 10/03/2014 urina lysis , dipst ick Blood Non-He molyze d: Trace Not Available In-Office Order Internal Use Only DO Not Attach Compendium DO Not Attach Compendium, Do Not Delete/merge, 10/03/2014 09:16:15 10/03/2014 urina lysis , dipst ick Specific [place] 1.020 Not Available In-Off ice Order Internal Use Only DO Not Attach Compendium DO Not Attach Compendium, Do Not Delete/merge, 10/03/2014 09:16:15 10/03/2014 urina lysis , dipst ick Ketone Negati ve Not Available In-Office Order Internal Use Only DO Not Attach Compendium DO Not Attach Compendium, Do Not Delete/merge, [id number] 10/03/2014 09:16:15 10/03/2014 urina lysis , dipst ick Bilirubin Negati ve Not Available In-Office Order Internal Use Only DO Not Attach Compendium DO Not Attach Compendium, Do Not Delete/merge, [id number] 10/03/2014 09:16:15 10/03/2014 urina lysis , dipst ick Glucose Negati ve Not Available In-Office Order Internal Use Only DO Not Attach Compendium DO Not Attach Compendium, Do Not Delete/merge, [id number] 10/03/2014 09:16:15 10/03/2014 urina lysis , dipst ick Appearance Clear Not Available In-Offi ce Order Internal Use Only DO Not Attach Compendium DO Not Attach Compendium, Do Not Delete/merge, [id number] 10/03/2014 09:16:15 10/03/2014 urina lysis , dipst ick Color Yellow Not Available In-Office Order Internal Use Only DO Not Attach Compendium DO Not Attach Compendium, Do Not Delete/merge, [id number] 10/03/2014 09:16:15 10/03/2014 pregn justin test, urine HCG negati ve Not Available In-Office Order Internal Use Only DO Not Attach Compendium DO Not Attach Compendium, Do Not Delete/merge, [id number] 10/03/2014 09:16:15 09/09/19 17 09/09/2016 hepat itis panel (A+B+ C), acute , serum hep A Ab, IgM NEGATI VE negati ve Not Available [facility] ([facility]) [address] [place], [address], 09/09/2016 06:14:08 09/09/19 17 09/09/2016 hepat itis panel (A+B+ C), acute , serum HBsAg screen NEGATI VE negati ve Not Available [facility] ([facility]) [address] [place], [address], 09/09/2016 06:14:08 09/09/19 17 09/09/2016 hepat itis panel (A+B+ C), acute , serum hep B core Ab, IgM NEGATI VE negati ve Not Available [facility] ([facility]) [address] [place], [address], 09/09/2016 06:14:08 09/09/19 17 09/09/2016 hepat itis panel (A+B+ C), acute , serum hep C virus Ab <0.1 S/co_ ratio 0.0-0. 9 NEGAT JIMMIE: < 0.8 INDET ERMIN ATE: 0.8 - 0.9 POSIT JIMMIE: > 0.9 [facility] RECOM MENDS THAT A POSIT JIMMIE HCV ANTIB MAURICIO RESUL T BE FOLLO WED UP WITH A HCV NUCLE IC ACID AMPLI FICAT ION TEST (5507 13). Not Available [facility] ([facility]) [address] [place], [address], 09/09/2016 06:14:08 09/09/19 17 09/09/2016 hepat itis B surfa ce Ab, quali tativ e, serum hep B surface Ab, qual NON REACTI VE NON REACT JIMMIE: INCON SISTE NT WITH IMMUN ITY, LESS THAN 10 MIU/M L REACT JIMMIE: CONSI STENT WITH IMMUN ITY, GREAT ER THAN 9.9 MIU/M L Not Available [facility] ([facility]) [address] [place], [address], 09/09/2016 06:14:09 09/09/1909/09/2016 RPR (rapi d plasm a reagi n), serum RPR NON REACTI VE non reacti ve Not Available [facility] ([facility]) [address] [place], [address], 09/09/2016 06:14:09 09/09/1909/09/2016 HIV 1+2 AB + HIV 1 p24 Ag, quali tativ e immun oassa y, serum HIV screen 4TH generation wrfx NON REACTI VE non reacti ve Not Available [facility] ([facility]) [address] [place], [address], 09/09/2016 06:14:10 09/09/19 17 09/09/2016 hsv-2 (herp es simpl ex virus type 2) igg Ab, serum hsv 2 IgG, type spec <0.91 index 0.00-0 .90 NEGAT JIMMIE <0.91 EQUIV OCAL 0.91 - 1.09 POSIT JIMMIE >1.09 NOTE: NEGAT JIMMIE INDIC ATES NO ANTIB ODIES DETEC FRANDY TO HSV-2 . EQUIV OCAL MAY SUGGE ST EARLY INFEC TION. IF CLINI PAYTON APPRO PRIAT E, RETES T AT LATER DATE. POSIT JIMMIE INDIC ATES ANTIB ODIES DETEC FRANDY TO HSV-2 . Not Available [facility] ([facility]) [address] [facility], [place], [address], 09/09/2016 06:14:10 05/21/19 20 05/22/2019 HCG, intac t + beta subun it, quant , serum or plasm a HCG,beta subunit,qnt, serum <1 mIU/m L Femal e (Non- pregn ant) 0 - 5 (Post menop ausal ) 0 - 8 Femal e (Preg nant) Weeks of Gesta tion 3 6 - 71 4 10 - 750 5 490 - 1538 6 158 - 20280 7 1857 -7808 63 8 82929 -3473 71 9 76717 -1514 10 10 93870 -2357 77 12 12623 -4632 12 14 78742 - 94888 15 45763 - 49640 16 2962 - 75689 17 8439 - 39190 18 6435 - 38971 Carlos ECLIA metho dolog y Not Available [facility] ([facility]) [address] [facility], [place], [address], 05/22/2019 08:15:19 05/21/1905/23/2019 pap, IG + HPV, cervi helen diagnosis: Commen t NEGAT JIMMIE FOR INTRA EPITH ELIAL LESIO N OR MALIG TOMAS . CELLU LAR SABA ES ASSOC IATED WITH INFLA MMATI ON ARE PRESE NT. Not Available [facility] ([facility]) [address] [place], [address], 05/24/2019 06:08:03 05/21/19 20 05/23/2019 pap, IG + HPV, cervi helen specimen adequacy: Delgado rendon Satis facto ry for evalu ation . Endoc ervic al and/o r squam ous metap lasti c cells (endo cervi helen compo nent) are prese nt. Not Available [facility] ([facility]) [address] [place], [address], 05/24/2019 06:08:03 05/21/19 20 05/23/2019 pap, IG + HPV, cervi helen clinician provided ICD10: Delgado rendon Z01.4 19 Not Available [facility] ([facility]) [address] [place], [address], 05/24/2019 06:08:03 05/21/19 20 05/23/2019 pap, IG + HPV, cervi helen performed by: Delgado delarosa, Cytojustice rendon (ASCP ) Not Available [facility] ([facility]) [address] [place], [address], 05/24/2019 06:08:03 05/21/19 20 05/23/2019 pap, IG + HPV, cervi helen . . Not Available [facility] ([facility]) [address] [place], [address], 05/24/2019 06:08:03 05/21/19 20 05/23/2019 pap, IG + HPV, cervi helen note: Delgado rendon The Pap smear is a scree faby test desig jayla to aid in the detec tion of jasmin ligna nt and malig nant condi tions of the uteri ne cervi x. It is not a diagn ostic proce dure and shoul d not be used as the sole means of detec ting cervi helen cance r. Both false -posi tive and false -nega tive repor ts do occur . Not Available [facility] ([facility]) [address] [place], [address], 05/24/2019 06:08:03 05/21/19 20 05/23/2019 pap, IG + HPV, cervi helen test methodology: Commen t This liqui d based ThinP rep(R ) pap test was miky dickerson with the use of an image guide graciela oconnor. Not Available [facility] ([facility]) [address] [facility], [place], [address], 05/24/2019 06:08:03 05/21/19 20 05/23/2019 pap, IG + HPV, cervi helen HPV aptima Negati ve negati ve This nucle ic acid ampli ficat ion test detec ts fourt een high- risk HPV types (16,1 8,31, 33,35 ,39,4 5,51, 52,56 ,58,5 9,66, 68) witho ut diffe renti ation . Not Available [facility] ([facility]) [address] [facility], [place], [address], 05/24/2019 06:08:03 05/21/19 20 05/25/2019 bacte rial vagin osis panel , vagin al trich vag by EDWIGE Negati ve negati ve Not Available [facility] ([facility]) [address] [place], [address], 05/27/2019 06:04:53 05/21/19 20 05/25/2019 bacte rial vagin osis panel , vagin al chlamydia trachomatis, EDWIGE Negati ve negati ve Not Available [facility] ([facility]) [address] [place], [address], 05/27/2019 06:04:53 05/21/19 20 05/25/2019 bacte rial vagin osis panel , vagin al neisseria gonorrhoeae, EDWIGE Negati ve negati ve Not Available [facility] ([facility]) [address] [place], [address], 05/27/2019 06:04:53 05/21/19 20 05/26/2019 bacte rial vagin osis panel , vagin al atopobium vaginae High - 2 score abnormal Not Available [facility] ([facility]) [address] [place], [address], 05/27/2019 06:04:53 05/21/1905/26/2019 bacte rial vagin osis panel , vagin al bvab 2 High - 2 score abnormal Not Available [facility] ([facility]) [address] [place], [address], 05/27/2019 06:04:53 05/21/1905/26/2019 bacte rial vagin osis panel , vagin al megasphaera 1 High - 2 score abnormal Calcu late total score by althea lara the 3 indiv idual bacte rial vagin osis (BV) marke r score s toget her. Total score is inter prete d as follo ws: Total score 0-1: Indic ates the absen ce of BV. Total score 2: Indet ermin ate for BV. Addit ional clini helen data shoul d be evalu ated to estab nimo a diagn osis. Total score 3-6: Indic ates the prese nce of BV. This test was devel oped and its perfo rmanc e kerry cteri stics deter mined by [facility]. It has not been clear ed or appro nelida by the Food and Drug Admin istra tion. The FDA has deter mined that such clear ance or appro sharon is not neces sadaf. Not Available [facility] ([facility]) [address] [place], [address], 05/27/2019 06:04:53 05/21/19 20 05/26/2019 bacte rial vagin osis panel , vagin al jason albicans, EDWIGE Positi ve negati ve abnormal Not Available [facility] ([facility]) [address] [place], [address], 05/27/2019 06:04:53 05/21/19 20 05/26/2019 bacte rial vagin osis panel , vagin al jason glabrata, EDWIGE Negati ve negati ve Not Available [facility] ([facility]) [address] [place], [address], 05/27/2019 06:04:53 05/21/19 20 05/26/2019 bacte rial vagin osis panel , vagin al hsv 1 EDWIGE Negati ve negati ve Not Available [facility] ([facility]) [address] [place], [address], 05/27/2019 06:04:53 05/21/19 20 05/26/2019 bacte rial vagin osis panel , vagin al hsv 2 EDWIGE Negati ve negati ve Not Available [facility] ([facility]) [address] [facility], [place], [address], 05/27/2019 06:04:53 05/21/19 20 05/24/2019 cultu re, vagin al/re ctal, strep tococ cus group B strep gp B EDWIGE Negati ve negati ve Cente rs for Disea se Contr ol and Preve ntion (CDC) and Ameri can Congr ess of Obste trici ans and Gynec ologi sts (ACOG ) guide lines for preve ntion of perin atal group B strep tococ helen (GBS) disea se speci fy co-co llect ion of a vagin al and recta l swab speci men to maxim ize sensi tivit y of GBS detec tion. Per the CDC and ACOG, swabb ing both the lower vagin a and rectu m subst antia lly incre ases the yield of detec tion brianna red with sampl ing the vagin a alone . Penic illin G, ampic illin , or cefaz margaret are indic ated for intra partu m proph ylaxi s of perin atal GBS colon izati on. Refle x susce ptibi lity testi ng shoul d be perfo rmed prior to use of clind amyci n only on GBS isola randy from penic illin -ruddy rgic women who are consi dered a high risk for anaph ylaxi s. Treat ment with vanco mycin witho ut addit ional testtrena james is warra nted if resis tance to clind amyci n is noted . Not Available [facility] ([facility]) [address] [facility], [place], [address], 05/27/2019 06:04:54 Result Notes None recorded. Problems Name Problem SNOMED Code Status Onset Date Resolution Date Notes Provider Name and Address Organization Details Recorded Time Depressive disorder 19006164 Active Anaid Lemsu [place] null, [place] - [facility] 5 11:31:23 Bacterial vaginosis 783815864 Active 2019 Han FarahPaola [place], [place] - [facility] 0 16:54:10 Candidiasis 36416531 Active Han Guevara [place] [facility] 4 15:17:16 depression 27156208 Active Han Guevar[place] [facility] 5 10:18:28 state 19771393 Active Han Guevar[place] [facility] 5 10:18:28 Anemia 210022986 Active Han Guevara [place] [facility] 5 10:10:07 Problem Notes None recorded. Procedures Surgical History Date Name Laterality Status Provider Name and Address Organization Details Recorded Time 05/21/19 20 Date of Last Pap Smear completed Myah Cleaning [place] - [facility] 05/21/2019 16:25:21 09/09/19 17 Control Implant Removal completed Han Guevara [place] - [facility] 09/08/2016 11:42:16 10/30/19 15 Control Implant Insertion completed Han Guevara [place] - [facility] 10/29/2014 11:25:13 04/03/20 14 Caesarean Section completed Han Guevara MD - [facility] 05/13/2014 18:01:47 04/04/19 10 Appendectomy completed May [place] - [facility] 02/27/2014 14:52:57 Imaging Results None recorded. Procedure Notes None recorded. Medical Equipment None Reported. Allergies Allergen ID Allergen Name Allergen Category Reaction Reaction Severity Criticality Documentation Date Start Date Code Code System Note Provider Name and Address Organization Details Recorded Time 3598 Medicinal product containin g penicilli n and acting as antibacte rial agent (product) medicatio n hives moderate Not available 02/27/2014 48804 05 [facility] [place] - [facility] 4 14:49:15 3599 Substance with sulfonami de structure and antibacte rial mechanism of action (substanc e) medicatio n hives moderate Not available 02/27/2014 [id number] [facility] [place] - [facility] 4 14:49:15 3600 Medicinal product containin g cephalosp etta and acting as antibacte rial agent (product) medicatio n hives moderate Not available 02/27/2014 17491 [id number] [facility] [place] - [facility] 4 14:49:15 Medications Name Sig Start Date Stop Date Status Note LastModified by Organization Details LastModified Time fluconazole tab 150mgflucon azole active Not Available Not Available Not Available fluconazole tab 150mg active Not Available Not Available No t Available progesteron e cap 200mg active Not Available Not Available Not Available oxycod/apap tab 5-325mgoxyc odone/aceta minophen active Not Available Not Available Not Available multivitami n tablet Take 1 tablet every day by oral route. 2019 active Not Available Not Available Not Avai lable ibuprofen 800 mg tablet 05/21 completed Not Available Not Available Not Available fluconazole 150 mg tablet Take 1 tablet by oral route for 1 day. 2019 active Not Available Not Available Not Avai lable metronidazo le 0.75 % (37.5 mg/5 gram) vaginal gel Insert 1 applicato rful every day by vaginal route at bedtime for 5 days. 2019 active Not Available Not Available Not Avai lable clindamycin HCl 150 mg capsule 05/21 completed Not Available Not Available Not Available ondansetron 8 mg disintegrat ing tablet 05/21 completed Not Available Not Available Not Available lorazepam 0.5 mg tablet 05/21 completed Not Available Not Available Not Available ferrous sulfate 325 mg (65 mg iron) tablet Take 1 tablet twice a day by oral route. 2014 active Not Available Not Available Not Avai lable buspirone 10 mg tablet TAKE 1 TABLET BY MOUTH 2 TIMES A DAY NEEDED (ANXIETY) . active Not Available Not Available No t Available sertraline 25 mg tablet active Not Available Not Available Not Available lorazepam 1 mg tablet 05/21 completed Not Available Not Available Not Available norethindro ne (contracept jimmie) 0.35 mg tablet Take 1 tablet every day by oral route. 2014 active Not Available Not Available Not Avai lable sertraline 50 mg tablet active Not Available Not Available Not Available nitrofurant oin monohydrate /macrocryst als 100 mg capsule 05/21 completed Not Available Not Available Not Available Vyvanse 30 mg capsule TAKE 1 CAPSULE BY MOUTH EVERY DAY IN THE MORNING active Not Available Not Available No t Available Vyvanse 20 mg capsule active Not Available Not Available N ot Available Calcium with Vitamin D 600 mg-10 mcg (400 unit) tablet Take 1 tablet twice a day by oral route. 2019 active Not Available Not Available Not Avai lable Viibryd 40 mg tablet Take 1 tablet every day by oral route as directed for 30 days. 05/21 completed Not Available Not Available Not Available Nexplanon 68 mg subdermal implant Inject 1 implant by subcutane ous route. 05/21 completed Not Available Not Available Not Available Xulane 150 mcg-35 mcg/24 hr transdermal patch Appy 1 patch to skin weekly 05/21 completed Not Available Not Available Not Available ID NOW COVID-19 Test Kit TEST DIRECTED TODAY active Not Available Not Available No t Available Vitals Date Recorded Body height Body mass index (BMI) Body weight Systolic blood pressure Diastolic blood pressure Provider Name and Address Organization Details Last Updated DateTime 10/29/2014 165.1 cm 28.6 kg/m2 93961.88 764 g 116 mm[Hg] 68 mm[Hg] Ariadne Garrison [place] [facility] 5 11:09:26 Date Recorded Body weight Body mass index (BMI) Body height Systolic blood pressure Diastolic blood pressure Provider Name and Address Organization Details Last Updated DateTime 10/31/2014 93666.48 001 g 28.8 kg/m2 165.1 cm 116 mm[Hg] 68 mm[Hg] Myah Cleaning MA [facility] 5 16:20:10 Date Recorded Body height Body mass index (BMI) Body weight Systolic blood pressure Diastolic blood pressure Provider Name and Address Organization Details Last Updated DateTime 05/21/2019 165.1 cm 32.4 kg/m2 60176.51 g 96 mm[Hg] 64 mm[Hg] Myah Cleaning MA [facility] 0 16:33:56 Date Recorded Body height Body mass index (BMI) Body weight Systolic blood pressure Diastolic blood pressure Provider Name and Address Organization Details Last Updated DateTime 12/10/2014 165.1 cm 28.5 kg/m2 74446.29 527 g 124 mm[Hg] 80 mm[Hg] Ariadne Garrison MA [facility] 5 10:44:03 Date Recorded Body weight Systolic blood pressure Diastolic blood pressure Provider Name and Address Organization Details Last Updated DateTime 09/08/2016 38451.59 g 108 mm[Hg] 70 mm[Hg] Anabel Travis MA [facility] 09/08/2016 11:12:38 Social History Question Answer Notes LastModified by Organizat ion Details LastModified Time Tobacco Smoking Status Current Some Day Smoker Vapors Anabel Travis MA null, [facility] 09/08/2016 11:18:33 Do You Have An Advance Directive? No [email or web address] Information not available 08/01/2014 What Is Your Level Of Alcohol Consumption? None [email or web address] Information not available 08/01/2014 Is Blood Transfusion Acceptable In An Emergency? Yes [email or web address] Information not available 08/01/2014 What Is Your Level Of Caffeine Consumption? Moderate [email or web address] Information not available 08/01/2014 How Much Tobacco Do You Chew? 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 REGULAR Information not available 08/01/2014 Which Illicit Or Recreational Drugs Have You Used? Marijuana Recovering Addict Information not available 05/21/2019 Do You Or Have You Ever Used E-cigarettes Or Vape? Current User Of Electronic Cigarettes Pt States 5 Yrs Vapor Information not available 05/21/2019 Education 12 [email or web address] Information no t available 08/01/2014 What Is Your Occupation? [employer] Information not available 05/21/2019 Live Alone Or With Others? With Others [email or web address] Information not available 08/01/2014 What Was The Date Of Your Most Recent Tobacco Screening? 05/21/2019 Information not available 05/21/2019 How Many Children Do You Have? 1 [email or web address] Information not available 08/01/2014 Performs Monthly Self-breast Exam? Yes Information not available 05/21/2019 Do You Use Protection During Sex? No Information not available 05/21/2019 What Is Your Relationship Status? Single Information not available 08/01/2014 Seat Belts Used Routinely Yes [email or web address] Information not available 08/01/2014 Are You Sexually Active? No [email or web address] Information not available 08/01/2014 At What Age Did You Start Smoking Tobacco? 23 Just Started Back Smoking Again Vapor Information not available 05/21/2019 Do You Or Have You Ever Used Smokeless Tobacco? Never Used Smokeless Tobacco Information not available 05/21/2019 General Stress Level High Information not available 08/01/2014 Do You Use Sunscreen Routinely? Yes [email or web address] Information not available 08/01/2014 On What Date Was Tobacco Cessation Counseling Provided? 05/14/2019 Information not available 05/21/2019 How Many Years Have You Smoked Tobacco? 5 Information not available 05/21/2019 Sex: Unknown Functional Status Question Answer Note LastModified by Organizat ion Details LastModified Time What is your exercise level? Occasional Information not available 08/01/2014 Mental Status None recorded. Family History Relationship Description Onset Age of this Age Resolved Age Notes LastModified by Organization Details LastModified Time Mother Heart disease [email or web address] Not available 12/10 14:33:50 Mother History of hyperthyroid ism [email or web address] Not available 12/10 14:33:50 Mother Graves' disease [email or web address] Not available 12/10 14:33:50 Mother Pancreatitis [email or web address] Not eva ilable 12/10/2014 14:33:50 Father Hypertensive disorder [email or web address] Not available 12/10 14:33:50 Medical History Condition Response Heart Problems N Other Y High Blood Pressure N Breast Cancer N Thyroid Problems N Kidney or Bladder Problems N Lung Disease N GI Problems N Depression N Acne Y Eating Disorder N Breast Problem N Anemia N Anesthesia Complications N Headaches/Migraines N Ovarian Cancer N Diabetes N Anxiety Disorder N Blood Transfusions N Arthritis N Polyps N Infertility N Acid Reflux (GERD) N Cancer N Stroke N Abuse/Domestic Violence N Asthma N Endometriosis N High Cholesterol N Hepatitis N Heart Disease N Fibromyalgia Y Pre-Eclampsia Y Hypertension N Osteoporosis N Kidney Disease N Gynecological History Statement/Question Response Abnormal Pap N Flow Moderate STIs/STDs N HPV Vaccine Y Duration of Flow (days) 4 Age at Menarche 15 Current Control Method None Age at First Child 23 Frequency of Cycle (Q days) 30 Sexually Active? Y Menses Monthly Y Date of Last Pap Smear 05/21/2019 Sexual Problems? N LMP Approximate Desired Control Method None Obstetrics History GPAL:G 1 P 1 0 0 1 Type Value Multiple Births 0 Full Term 1 Induced 0 Spontaneous 0 Premature 0 Living 1 Ectopics 0 Total 1 Immunizations Vaccine Type Date Status Note Provider Nam e and Address Organization Details Recorded Time COVID-19 vaccine, vector-nr, rS-Ad26, PF, 0.5 mL 1 completed Robert bronson [facility] 10/01/2020 12:02:30 Influenza, split virus, quadrivalent, preservative 4 completed Han bronson [facility] 05/13/2014 17:57:39 Past Encounters Encounter ID Performer Location Encounter Start Date Encounter Closed Date Diagnosis/Indication Diagnosis SNOMED-CT Code Diagnosis ICD10 Code Diagnosis Note [id number] TALI Guerrero (OUTDOOR RECREATION SPECIALIST) [address] [place] [address] [id number] 0 02/27/2014 14:23:39 02/27/2014 15:19:25 Normal [id number] [facility] [id number] Han Parikh (OUTDOOR RECREATION SPECIALIST) [address] [place] [address] [id number] 0 03/06/2014 11:30:00 03/06/2014 13:43:24 [id number] Han Parikh [facility] (OUTDOOR RECREATION SPECIALIST) [address] [place] [address] [id number] 0 03/13/2014 12:31:48 03/13/2014 13:14:14 Normal [id number] Han Parikh [facility] (OUTDOOR RECREATION SPECIALIST) [address] [place] [address] [id number] 0 03/21/2014 16:46:55 03/21/2014 17:21:33 Normal [id number] Sachi Peterson Parikh (OUTDOOR RECREATION SPECIALIST) [address] [place] [address] [id number] 0 03/26/2014 11:59:47 03/26/2014 14:22:57 [id number] FLORA Hall (OUTDOOR RECREATION SPECIALIST) [address] [place] [address] [id number] 0 04/01/2014 10:14:43 04/01/2014 14:25:59 Normal [id number] Han Parikh (OUTDOOR RECREATION SPECIALIST) [address] [place] [address] [id number] 0 05/13/2014 11:04:27 05/13/2014 12:18:57 care [id number] Depressive disorder 24333563 Contraception care [id number] FLORA Hall (OUTDOOR RECREATION SPECIALIST) [address] [place] [address] [id number] 0 08/01/2014 16:09:02 08/12/2014 10:20:25 depression 87544698 state [id number] care [id number] TALI Amato (OUTDOOR RECREATION SPECIALIST) [address] [place] [address] [id number] 0 10/02/2014 10:27:50 10/02/2014 11:28:38 Contraception care education [id number] After 20 minute discussion of contracept ion options, patient chooses nexplanon- will order for insertion when available. [id number] TALI Guerrero (OUTDOOR RECREATION SPECIALIST) [address] [place] [address] [id number] 0 10/29/2014 10:43:58 10/29/2014 11:27:56 Insertion of subcutaneous contraceptive [id number] Depressive disorder [id number] Sachi Parikh HC (OUTDOOR RECREATION SPECIALIST) [address] [place] [address] [id number] 0 10/31/2014 16:08:48 10/31/2014 17:19:58 Subcutaneous contraceptive implant present [id number] Patient is 2 days s/p Nexplanon insertion, now with scab on insertion site with soreness and bruising. No sign of infection or mal-insert ion. Reassured patient. [id number] Han Parikh HC (OUTDOOR RECREATION SPECIALIST) [address] [place] [address] [id number] 0 12/10/2014 10:10:56 12/10/2014 11:46:42 Family planning surveillance [id number] Subcutaneo us contraceptive implant palpable [id number] TALI Guerrero (OUTDOOR RECREATION SPECIALIST) [address] [place] [address] [id number] 0 09/08/2016 10:45:25 09/08/2016 11:50:28 Contraception care 761054516 Z30.40 Venereal d isease screening 620038303 Z11.3 Exposure t o sexually transmissible disorder 298721387 Z20.2 Removal of subcutaneous contraceptive done [id number] 60995 Z98.890 Has tried Nuvaring and OCPs in the past. Plans to use Nuvaring in near future. Will use condoms for contracept ion for now. [id number] Han Parikh (OUTDOOR RECREATION SPECIALIST) [address] [place] [address] [id number] 0 05/21/2019 15:40:23 05/22/2019 10:01:56 Gynecologic examination 58859918 Z01.419 Exposure t o sexually transmissible disorder 823621188 Z20.2 Family castillo nning surveillance 012548398 Z30.09 Anovulation 70795434 N97 .0 Health Concerns Section Related Observation LastModified by Organization Detai ls LastModified Time None Recorded Concern Status LastModified by Organization Details LastModified Time None Recorded Advance Directives Directive N: Payers Encounter Date Sequence Insurance Name Policy Number Policy Chiu Covered Member ID Chiu Member ID Guarantor Name 10/29/2014 1 [facility] [id number] Marcin Augustine [id number] Alise Augustine 10/29/2014 2 [facility] (MEDICAID HMO) Alise Augustine [id number] Alise Augustine 10/31/2014 1 [facility] [id number] Marcin Augustine [id number] Alise Augustine 10/31/2014 2 [facility] (MEDICAID HMO) Alise Augustine [id number] Alise Augustine 12/10/2014 1 [facility] [id number] Marcin Pino Augustine [id number] Alise Augustine 09/08/2016 1 [facility] [id number] Marcin Augustine [id number] Alise Augustine 09/08/2016 1 [facility] - DOS PRIOR TO 2020 (MEDICAID REPLACEMENT - HMO) Alise Augustine [id number] Alise Augustine 05/21/2019 1 [facility] ([place] [id number] Alise Augustine [id number] Alise Augustine Notes Date Note Type Note Provider Name and Address Organization Details Recorded Time 10/29/2014 text/html nexplanon insert TALI Guerrero [facility] 10/29/2014 11:32:29 09/08/2016 text/html OCP CheckReporte d bypatient.Context:r maco for starting OCPs:desires contraception Associated Symptoms:no BTB menses; no side effects;irregular menses TALI Guerrero, [facility] 09/09/2016 13:58:12 05/21/2019 text/html Annual GYNReport ed bypatient.History:n o gynecologic complaints Menstrual cycle:Missed most recent period Urinary symptoms:No hematuria; No incontinence Vulva:No genital lesion Vagina:Normal vaginal discharge Breast:No breast lump; No nipple discharge;Breast pain Current Contraception:Satis fied with current contraception; Not sexually active Sexual complaints:No sexual complaints; No pain during intercourse; Normal libido Menopausal Symptoms:No menopausal symptoms; Normal vaginal lubrication Psychological symptoms:No depression; No anxiety; No PMDD Preventive measures:Encourage self breast examination; Encourage regular exercise; Encourage no tobacco use; Followed with Q3 year pap smear and high risk HPV typing 28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 Pt reports she hasnt started her period yet this month but had spotting for a a day with cramping and breast tenderness which has all subsided. she currently reports back ache and abd pressure. She states her home preg urine test was negative. Han Guevara null, MD - [facility] 05/22/2019 14:53:52 OBGyn Episode Ob Episode Information Episode Created Date Number of Fetuses Patient Bloodtype Patient rh Status Prepregnancy Weight lbs Domestic Partner Domestic Partner Phone Father Name Vehicle Monitor Technician Status 05/13/19 15 1 CLOSED Fetus Data First Name Last Name Admitted to NICU Weight (g) Sex Living Outcome Pediatric Complications Fetus ID Race Codes Race Delivery Type Mady false 4109.54 352 F Full Term [id number] White Franco Calculation Initial Franco Date Initial Exam Date Initial Exam Provider Initial Ultrasound Date Last Menstrual Period Date Ultra Sound Weeks Gestation 05/13/2014 0 Eighteen To Twenty Week Franco Update Ultra Sound Date Fundal Height At Umbil Quickening Date Ultra Sound Latest Weeks Gestation Final Franco Confirmed By Final Franco Confirmed Date Final Franco Date Ultra Sound Latest Days Gestation 0 0 Pre- Flowsheet Flowsheet Date 05/13/2014 [place] Score Blood Edema Fundus Height Fundus Units Glucose Ketones Leukocytes Nitrite Labor Signs Protein Cervic Dilation Cervic Effacement Cervic Station Type Weight in lbs Pre/Post Dialysis Refused 182.539405179420 BP Diastolic BP Location Tested BP Systolic BP Type 78 L arm 122 sitting Fetus Heart Rate Present Fetus Movement Comments Flowsheet Date 08/01/2014 [place] Score Blood Edema Fundus Height Fundus Units Glucose Ketones Leukocytes Nitrite Labor Signs Protein Cervic Dilation Cervic Effacement Cervic Station Type Weight in lbs Pre/Post Dialysis Refused 178.616535800515 BP Diastolic BP Location Tested BP Systolic BP Type 62 R arm 100 sitting Fetus Heart Rate Present Fetus Movement Comments Menstrual History Last Menstrual Date Menses Monthly On Bcp Conception Prior Menses Frequency Hcg Plus Date Menarche Onset Age Delivery Information Delivery Date Delivery Type Labor Anesthesia Weeks Gestation Incision Type Labor Labor Length Hrs Delivered By Post Complications Tubal Sterilization Discharge Date Comments 4 [place] [facility] [facility] 40 Low Transvers e false 36 Francisco Atkins None false 04/05/2014 Discharge Information Feeding Method Contraceptive Method Maternal HG B and HCT Levels Bottle ocp 12/29
--- OUTSIDE RECORDS SUMMARY | 2024-04-08 16:58 | XMS_ITS | Encounter Summary ---
Author Organization [facility] Address [address] [place] [address] Care Team Providers Care Ceramic Worker Name Role Phone Willy Gant MD Primary Care Provider [phone] Reason for Visit * Reason Comments Chest Pain cycle change (Period) used emerge ncy contraceptive Encounter Details Date Type Department Care Team (Late st Contact Info) Description 11/14/2020 10:00 AM CDT Office Visit [facility] Family Medicine [address] [place] [address] Willie Lawrence, JULITO [address] [address] Costochondritis (Primary Dx); Immunity status testing; Screening-pulmonary TB Social History Tobacco Use Types Packs/Day Years Used Date Smoking Tobacco: Former Cigarettes Q uit: 2012 E-cigarettes Smokeless Tobacco: Never Alcohol Use Standard Drinks/Week Comments Not Currently 0 (1 standard drink = 0.6 oz pur e alcohol) AUDIT-C Answer Date Recorded Q1: How often do you have a drink containing alc ohol? Monthly or less 11/14/2020 Q2: How many drinks containi ng alcohol do you have on a typical day when you are drinking? 1 or 2 11/14/2020 Q3: How often do you have si x or more drinks on one occasion? 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 Gender Identity Female 06/18/2020 3:18 PM CDT Sexual Orientation Choose not to disclose 2020 3:18 PM CDT documented as of this encounter Last Filed Vital Signs Vital Sign Reading Time Taken Comments Blood Pressure 120/80 11/14/2020 10:54 AM CDT Pulse 83 11/14/2020 10:54 AM CDT Temperature 37.1 ??C (98.7 ??F) 11/14/2020 10:54 AM C DT Respiratory Rate 18 11/14/2020 10:54 AM CDT Oxygen Saturation 97% 11/14/2020 10:54 AM CDT Inhaled Oxygen Concentration - - Weight 85.9 kg (189 lb 6.4 oz) 11/14/2020 10:54 AM CDT Height 165.1 cm (5' 5 ) 11/14/2020 10:54 AM CDT Body Mass Index 31.52 11/14/2020 10:54 AM CDT documented in this encounter Ordered Prescriptions Prescription Sig Dispense Quantity Refills Last Filled Start Date End Date naproxen (NAPROSYN) 500 mg tabletIndications: Costochondritis Take 1 tablet (500 mg total) by mouth 2 (two) times a day as needed for pain (pain) 60 tablet 11/14/2020 12/14/2020 documented in this encounter Progress Notes * Willie Lawrence PA - 11/14/2020 10:00 AM CDT Images from the original note were not included. Subjective/Objective Patient ID: Alise Augustine is a 30 y.o. female. Chief Complaint Chest Pain and cycle change ((Period) used emergency contraceptive ) HPI Patient referred presents to the office today with about 2 weeks of left-sided chest pain. States hurts with movement hurts with any type of rotational movement of the trunk. Patient denies any injury trauma that she knows of. She has no shortness of breath no cough no fever chills. Patient is alsogoing to be starting a medical program is needing prove of vaccinations. Patient reports no palpitations. Review of Systems Constitutional: Negative for fatigue, fever and unexpected weight change. HENT: Negative for congestion, ear pain, hearing loss, rhinorrhea and voice change. Eyes: Negative for discharge, redness and visual disturbance. Respiratory: Negative for cough, chest tightness and shortness of breath. Cardiovascular: Negative for chest pain, palpitations and leg swelling. Gastrointestinal: Negative for abdominal pain, blood in stool, constipation, diarrhea and nausea. Endocrine: Negative for polydipsia and polyuria. Genitourinary: Negative for dysuria and frequency. Skin: Negative for color change and rash. Neurological: Negative for dizziness, tremors and headaches. Hematological: Does not bruise/bleed easily. Psychiatric/Behavioral: Negative for confusion and dysphoric mood. Blood pressure 120/80, pulse 83, temperature 37.1 ??C (98.7 ??F), temperature source Oral, resp. rate 18, height 165.1 cm (5' 5 ), weight 85.9 kg (189 lb 6.4 oz), SpO2 97 %. Physical Exam Vitals reviewed. Constitutional: General: She is not in acute distress. Appearance: Normal appearance. She is not ill-appearing. HENT: Head: Normocephalic. Eyes: Extraocular Movements: Extraocular movements intact. Conjunctiva/sclera: Right eye: Right conjunctiva is not injected. Left eye: Left conjunctiva is not injected. Cardiovascular: Rate and Rhythm: Normal rate and regular rhythm. Pulmonary: Effort: Pulmonary effort is normal. No respiratory distress. Chest: Chest wall: Tenderness present. Neurological: General: No focal deficit present. Mental Status: She is alert. Psychiatric: Attention and Perception: Attention normal. Mood and Affect: Mood normal. Speech: Speech normal. Behavior: Behavior normal. Behavior is cooperative. Thought Content: Thought content normal. Assessment/Plan Diagnoses and all orders for this visit: Costochondritis (M94.0) (Primary) Comments: start naproxen bid prn topical voltaren heat acute condition Orders: - naproxen (NAPROSYN) 500 mg tablet; Take 1 tablet (500 mg total) by mouth 2 (two) times a day as needed for pain (pain) Immunity status testing (Z01.84) - Varicella Zoster (VZV) IgG Blood; Future - Hepatitis B core antibody, total; Future - Rubella IgG; Future - Rubeola antibody IgG; Future - Mumps antibody, IgG; Future Screening-pulmonary TB (Z11.1) - TB test, cell immune measure; Future - TB test, cell immune measure; Future JULITO Salazar documented in this encounter Plan of Treatment Not on file documented as of this encounter Visit Diagnoses Diagnosis Costochondritis- Primary Tietze's disease Immunity status testing Antibody response examination Screening-pulmonary TB Screening examination for pulmonary tuberculosis documented in this encounter Care Teams Ceramic Worker Relationship Specialty Start Date End Date Willy Gant MD PCP - General Family Medicine 12/26/18 12/16/21 documented as of this encounter
--- OUTSIDE RECORDS SUMMARY | 2024-04-08 16:58 | XMS_ITS | Encounter Summary ---
Author Organization [facility] Address [address] [place] [address] Care Team Providers Care Process Treater Name Role Phone Deven Ng MD Primary Care Provider [phone] Reason for Visit * Reason Comments ADHD Follow up ADHDDiscus s IUD opinion Encounter Details Date Type Department Care Team (Late st Contact Info) Description 10/04/2022 10:15 AM CDT Office Visit [facility] Family Medicine at [address] [place] [address] Teresa Cadet PA [address] [place] [address] [address] [place] [address] 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 2-4 times a month 08/04/2022 Q2: How many drinks containi ng alcohol do you have on a typical day when you are drinking? 1 or 2 08/04/2022 Q3: How often do you have si x or more drinks on one occasion? 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 Gender Identity Female 06/18/2020 3:18 PM CDT Sexual Orientation Choose not to disclose 2020 3:18 PM CDT documented as of this encounter Last Filed Vital Signs Vital Sign Reading Time Taken Comments Blood Pressure 118/70 10/04/2022 10:34 AM CDT Pulse 79 10/04/2022 10:34 AM CDT Temperature 36.7 ??C (98.1 ??F) 10/04/2022 10:34 AM C DT Respiratory Rate 18 10/04/2022 10:34 AM CDT Oxygen Saturation 99% 10/04/2022 10:34 AM CDT Inhaled Oxygen Concentration - - Weight 93.9 kg (207 lb) 10/04/2022 10:34 AM CDT Height 165.1 cm (5' 5 ) 10/04/2022 10:34 AM CDT Body Mass Index 34.45 10/04/2022 10:34 AM CDT documented in this encounter Ordered Prescriptions Prescription Sig Dispense Quantity Refills Last Filled Start Date End Date busPIRone (BUSPAR) 10 mg tabletIndications:G AD (generalized anxiety disorder) Take 1 tablet (10 mg total) by mouth daily 90 tablet 2 10/04/2022 documented in this encounter Progress Notes * Teresa Cadet PA - 10/04/2022 10:15 AM CDT Images from the original note were not included. CHIEF COMPLAINT: Chief Complaint Patient presents with ADHD Follow up ADHD Discuss IUD opinion SUBJECTIVE: She is a 32 y.o. female who presents today for follow-up on anxiety and ADD. States she is doing well on current med regimen and tolerating without any side effects. She feels Adderall works well to help her focus and complete tasks. She does feel the extended release worked better for her, but dueto shortage she has been on the immediate release. She has been cutting the tablets in half and does not take them every day. She feels stable on current regimen at this time. She has taken her BuSpar some over the past couple months. States this works well for her anxiety. She has no new concerns at this time. She is planning to see her locomotive mechanic at [facility] [place] to discuss IUD options. 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 Continue med regimen JACQUELINE (generalized anxiety disorder) (F41.1) - busPIRone (BUSPAR) 10 mg tablet; Take 1 tablet (10 mg total) by mouth daily Stable. Continue med regimen ROS: Review of Systems Constitutional: Negative for appetite change and fever. HENT: Negative for ear pain, rhinorrhea and trouble swallowing. Eyes: Negative for pain and visual disturbance. Respiratory: Negative for cough, chest tightness and shortness of breath. Cardiovascular: Negative for chest pain and leg swelling. Gastrointestinal: Negative for abdominal pain, blood in stool, diarrhea, nausea and vomiting. Endocrine: Negative for cold intolerance and heat intolerance. Genitourinary: Negative for difficulty urinating, dysuria and frequency. Musculoskeletal: Negative for arthralgias, back pain and myalgias. Skin: Negative for color change and rash. Allergic/Immunologic: Negative for food allergies. Neurological: Negative for dizziness, syncope, weakness, light-headedness and headaches. Hematological: Does not bruise/bleed easily. Psychiatric/Behavioral: Negative for confusion, hallucinations and suicidal ideas. The patient is not nervous/anxious. PHYSICAL EXAM: Vitals: 10/04/22 1034 BP: 118/70 BP Location: Left arm Patient Position: Sitting Pulse: 79 Resp: 18 Temp: 36.7 ??C (98.1 ??F) TempSrc: Oral SpO2: 99% Weight: 93.9 kg (207 lb) Height: 165.1 cm (5' 5 ) Body mass index is 34.45 kg/m??. GENERAL: Patient is awake alert and oriented x3 in no acute distress. The patient is well-nourishedand well-developed and, in general, well-appearing. Patient is seated on the exam table. Patient ispleasant and cooperative with the interview and exam. SKIN: No rashes, scars, or moles noted. HEENT: Head is normocephalic and atraumatic. Tympanic membranes are clear bilaterally. Oral mucosa is pink and moist, no tonsillar exudates and no oral pharyngeal lesions. NECK: No cervical lymphadenopathy noted. No thyromegaly appreciated. CHEST: No chest wall tenderness noted. Lungs are clear to auscultation bilaterally. No wheezes, rhonchi, or rales appreciated. CARDIOVASCULAR: Heart is in regular rate and rhythm. S1 and S2 are auscultated. No rubs, gallops, or murmurs appreciated. EXTREMITIES: No lower extremity edema noted bilaterally. No calf tenderness noted bilaterally. No clubbing or cyanosis noted. 2+ pulses in LE b/l. NEUROLOGIC: Gait was unremarkable. No focal neurologic deficits observed. PSYCH: Appropriate affect. Denies suicidal or homicidal ideation. JULITO Lopez documented in this encounter Plan of Treatment Not on file documented as of this encounter Visit Diagnoses Diagnosis Attention deficit disorder (ADD) without hyperactivity- Primary JACQUELINE (generalized anxiety disorder) Generalized anxiety disorder documented in this encounter Discontinued Medications Medication Sig Discontinue Reason Start Date End Da te dextroamphetamine-ampheta mine XR (ADDERALL XR) 30 mg 24 hr capsuleIndications:Attent ion deficit disorder (ADD) without hyperactivity Take 1 capsule (30 mg total) by mouth every morning 07/27/2022 10/04/[address] (PROTONIX) 40 mg EC tabletIndications:Dyspeps ia Take 1 tablet (40 mg total) by mouth 2 (two) times a day for 14 days 08/04/2022 10/04/2022 sucralfate (CARAFATE) 1 gram tabletIndications:Dyspeps ia Take 1 tablet (1 g total) by mouth 4 (four) times a day for 14 days 08/04/2022 10/04/2022 busPIRone (BUSPAR) 10 mg tabletIndications:JACQUELINE (generalized anxiety disorder) TAKE 1 TABLET BY MOUTH 2 TIMES A DAY NEEDED (ANXIETY). Reorder 10/12/2021 10/04/2022 documented as of this encounter Care Teams Process Treater Relationship Specialty Start Date End Date Deven Ng MD [address] [place] [address] [place] [id number] PCP - General Family Medicine 10/04/22 documented as of this encounter
--- OUTSIDE RECORDS SUMMARY | 2024-04-08 16:58 | XMS_ITS | Encounter Summary ---
Author Organization [facility] Address [address] [place] [address] Care Team Providers Care Designer/Writer Name Role Phone Teresa Cadet Primary Care Provider + Reason for Visit * Reason Comments ADD Follow up Med Refill Adderall Encounter Details Date Type Department Care Team (Late st Contact Info) Description 06/17/2022 11:30 AM CDT Office Visit [facility] Family Medicine at [address] [place] [address] Teresa Cadet PA [address] [place] [address] [address] [place] [address] Attention deficit disorder (ADD) without hyperactivity (Primary Dx); JACQUELINE (generalized anxiety disorder) Social History Tobacco Use Types Packs/Day Years Used Date Smoking Tobacco: Former Cigarettes Q uit: 2012 E-cigarettes Vaping Smokeless Tobacco: Never Tobacco Cessation:Counseling Given: Not Answered Alcohol Use Standard Drinks/Week Comments Not Currently 0 (1 standard drink = 0.6 oz pur e alcohol) AUDIT-C Answer Date Recorded Q1: How often do you have a drink containing alc ohol? 2-4 times a month 06/17/2022 Q2: How many drinks containi ng alcohol do you have on a typical day when you are drinking? 1 or 2 06/17/2022 Q3: How often do you have si x or more drinks on one occasion? 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 Gender Identity Female 06/18/2020 3:18 PM CDT Sexual Orientation Choose not to disclose 2020 3:18 PM CDT documented as of this encounter Last Filed Vital Signs Vital Sign Reading Time Taken Comments Blood Pressure 120/84 06/17/2022 11:54 AM CDT Pulse 107 06/17/2022 11:54 AM CDT Temperature 36.8 ??C (98.3 ??F) 06/17/2022 11:54 AM C DT Respiratory Rate - - Oxygen Saturation 100% 06/17/2022 11:54 AM CDT Inhaled Oxygen Concentration - - Weight 86.5 kg (190 lb 9.6 oz) 06/17/2022 11:54 AM CDT Height 165.1 cm (5' 5 ) 06/17/2022 11:54 AM CDT Body Mass Index 31.72 06/17/2022 11:54 AM CDT documented in this encounter Ordered Prescriptions Prescription Sig Dispense Quantity Refills Last Filled Start Date End Date dextroamphetamine-a mphetamine XR (ADDERALL XR) 30 mg 24 hr capsuleIndications: Attention deficit disorder (ADD) without hyperactivity Take 1 capsule (30 mg total) by mouth every morning 30 capsule 06/24/2022 3 documented in this encounter Progress Notes * Teresa Cadet PA - 06/17/2022 11:30 AM CDT Images from the original note were not included. CHIEF COMPLAINT: Chief Complaint Patient presents with ADD Follow up Med Refill Adderall SUBJECTIVE: She is a 31 y.o. female who presents today for follow-up on ADD. She is doing well on current regimen of Adderall. States she felt better on the extended release but since this started she is been onthe immediate release. States the current regimen works well enough for her at this time. States ithelps her focus and complete tasks. 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 This helps her focus and complete her homework. Denies any side effects of the medication. 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 Cont med regimen. [place] tree wrapper monitored JACQUELINE (generalized anxiety disorder) (F41.1) stable PHQ Screening Over the past 2 weeks, how often have you been bothered by any of the following problems? Little Interest or Pleasure in Doing Things: Not at all Feeling Down, Depressed, or Hopeless: Not at all PHQ-2 Total Score (If total score is 3 or more points, staff should administer the PHQ-9): 0 ROS: Review of Systems Constitutional: Negative for [...] patient is not nervous/anxious. PHYSICAL EXAM: Vitals: 06/17/22 1154 BP: 120/84 Pulse: 107 Temp: 36.8 ??C (98.3 ??F) TempSrc: Temporal SpO2: 100% Weight: 86.5 kg (190 lb 9.6 oz) Height: 165.1 cm (5' 5 ) Body mass index is 31.72 kg/m??. GENERAL: Patient is awake alert and oriented x3 in no acute distress. The patient is well-nourishedand well-developed and, in general, well-appearing. Patient is seated on the exam table. Patient ispleasant and cooperative with the interview and exam. SKIN: No rashes, scars, or moles noted. HEENT: Head is normocephalic and atraumatic. Tympanic membranes are clear bilaterally. Mask in place NECK: No cervical lymphadenopathy noted. No thyromegaly [...] Appropriate affect. Denies suicidal or homicidal ideation. Cosigned by Deven Ng MD at 06/21/2022 7:57 AM CDT documented in this encounter Plan of Treatment Not on file documented as of this encounter Visit Diagnoses Diagnosis Attention deficit disorder (ADD) without hyperactivity- Primary JACQUELINE (generalized anxiety disorder) Generalized anxiety disorder documented in this encounter Discontinued Medications Medication Sig Discontinue Reason Start Date End Da te EluRyng 0.12-0.015 mg/24 hr vaginal ring INSERT 1 RING VAGINALLY, LEAVE IN PLACE FOR 3 WEEKS, FOLLOWED BY 1 RING FREE WEEK 12/03/2021 06/17/2022 dextroamphetamine-ampheta mine XR (ADDERALL XR) 30 mg 24 hr capsuleIndications:Attent ion deficit disorder (ADD) without hyperactivity Take 1 capsule (30 mg total) by mouth every morning Reorder 05/10/2022 06/17/2022 documented as of this encounter Care Teams Designer/Writer Relationship Specialty Start Date End Date Teresa Cadet PA PCP - General Family Medicine 12/17/21 10/03/22 documented as of this encounter
--- OUTSIDE RECORDS SUMMARY | 2024-04-08 16:58 | XMS_ITS | Clinical Summary ---
Author Organization [address] Address [address] [place] [id number] Care Team Providers Care Jack Tamp Operator Name Role Phone Deven Ng MD Primary Care Provider [phone] Allergies Active Allergy Reactions Criticality Noted Date Comments Cephalosporins Hives,Swelling,Urticaria Medium 019 Penicillin G Hives Medium 03/09/2021 Penicillins Anaphylaxis High 01/08/2019 Sulfadiazine Rash Medium 01/08/2019 Medications busPIRone (BUSPAR) 10 mg tabletIndication s:JACQUELINE (generalized anxiety disorder) Take 1 tablet (10 mg total) by mouth daily 90 tablet 2 10/04/2022 Active dextroamphetamin e-amphetamine (ADDERALL) 30 mg tablet Take 1 tablet (30 mg total) by mouth daily 30 tablet 11/12/2022 Active Active Problems Problem Noted Date Diagnosed Date Class 1 obesity due to exces s calories without serious comorbidity with body mass index (BMI) of 31.0 to 31.9 in adult 09/21/2022 Assessment & Plan (09/21/2022 4:52 PM CDT): Recommended aggressive Lifestyle modification and weight loss for improving overall weight related health conditions. Follow up in 1 or 3 months for continuing Lifestyle Medicine education and management visit. Recommend Lifestyle Seminar on Wednesdays @ 5pm. Dyspepsia 08/04/2022 JACQUELINE (generalized anxiety disorder) 11/14/2019 Bacterial vaginosis 05/27/2019 depression 01/08/2019 Attention deficit disorder (ADD) without hyperac tivity 02/16/2016 Assessment & Plan (12/11/2020 3:28 PM CDT): Chronic condition stable and well controlled with vyvanse 30mg Depression 02/16/2016 Immunizations Name Administration Dates Next Due DTaP, Unspecified 04/05/2014 HPV, Quadrivalent 07/22/2007,01/07/2007,10/16/19 07 Hep A, Pediatric 12/03/2008,05/30/2008 Influenza, Quadrivalent, Jordana l Culture-based MDCK, Preservative Free, Antibiotic Free, Intramuscular 05/24/2022 Influenza, Quadrivalent, Rec ombinant, Egg Free, Preservative Free, Intramuscular 01/16/2020 Influenza, Quadrivalent, Spl it, Intramuscular 01/28/2014 Influenza, Quadrivalent, Spl it, Preservative Free, Intramuscular 02/10/2021,02/12/2019 Influenza, Trivalent, IM (MDV) 01/23/2011 Influenza, Unspecified 01/14/2022 Meebo (J&J) SARS-CoV-2 Vaccination 06/10/2020, 06/10/2020 Meningococcal MCV4P (Menactra) 05/30/2008 Tdap 10/15/2006 Medical History Medical History Date Comments Headache Anxiety Breast lump 12/2021 Right breast/ Ma mmogram scheduled @ [facility] 12.22.2021 Family History Medical History Relation Name Comments No Known Problems Brother 1 No Known Problems Brother 2 No Known Problems Daughter Hyperlipidemia Father Diabetes Mother Heart disease Mother Hyperlipidemia Mother Hypertension Mother Thyroid disease Mother No Known Problems Sister Relation Name Status Comments Brother 1 Alive Brother 2 Alive Daughter Alive Father Alive Mother Alive Sister Alive Social History Tobacco Use Types Packs/Day Years Used Date Smoking Tobacco: Former Cigarettes Q uit: 2011 E-cigarettes Vaping Quit: 07/14/19 Smokeless Tobacco: Never Tobacco Cessation:Counseling Given: Not [...] staff should administer the PHQ-9) 0 06/17/2022 Personal Safety Answer Date Recorded Getting School Help Needed Not on file 05/21 Comments Unknown Sex and Gender Information Value Date Recorded Sex Assigned at Not on file 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 Gender Identity Female 06/18/2020 3:18 PM CDT Sexual Orientation Choose not to disclose 2020 3:18 PM CDT Obstetrics History Last Filed Vital Signs Vital Sign Reading [...] Mass Index 34.45 10/04/2022 10:34 AM CDT Plan of Treatment Health Maintenance Due Date Last Done Comments Cervical Cancer Screening 1992 Hepatitis C Screening 1992 Varicella Vaccines (1 of 2 - 13+ 2-dose series) 2005 Hepatitis B Screening 2010 Regular Well Visit/Exam 18-64 12/11/2021 12/11/2020 Depression Screening 06/18/2023 06/17/2022, 12/11/2020, 09/09/2020, Additional history exists Covid-19 Vaccine ( season) 2023 02/10/2021, 06/10/2020, 06/10/2020 Influenza Vaccine (#1) 2023 , 05/24/2022, 01/14/2022, Additional history exists DTaP/Tdap/Td Vaccine (3 - Td or Tdap) 04/05/2024 04/05/2014, 10/15/2006 HPV Vaccines Completed 07/22/2007, 09/2006, 10/15/2006 Pneumococcal vaccine <65 Aged Out No longer eligible based on patient's age to complete this topic Insurance Care Teams Jack Tamp Operator Relationship Specialty Start Date End Date Deven Ng MD [address] [place] [address] PCP - General Family Medicine 10/04/22
--- OUTSIDE RECORDS SUMMARY | 2024-04-08 16:58 | XMS_ITS | Encounter Summary ---
Author Organization [facility] Address [address] [place] [address] Care Team Providers Care Graphic Designer Name Role Phone Teresa Cadet Primary Care Provider + Reason for Visit * Reason Comments Review Medications Discuss increasing d ose of Adderall Encounter Details Date Type Department Care Team (Late st Contact Info) Description 12/17/2021 10:00 AM CDT Office Visit [facility] Family Medicine [address] [place] [address] Teresa Cadet PA [address] [address] Attention deficit disorder (ADD) without hyperactivity (Primary Dx); Carpal tunnel syndrome of left wrist Social History Tobacco Use Types Packs/Day Years Used Date Smoking Tobacco: Former Cigarettes Q uit: 2012 E-cigarettes Vaping Smokeless Tobacco: Never Tobacco Cessation:Counseling Given: Not Answered Alcohol Use Standard Drinks/Week Comments Not Currently 0 (1 standard drink = 0.6 oz pur e alcohol) AUDIT-C Answer Date Recorded Q1: How often do you have a drink containing alc ohol? 2-4 times a month 12/17/2021 Q2: How many drinks containi ng alcohol do you have on a typical day when you are drinking? 3 or 4 12/17/2021 Q3: How often do you have si x or more drinks on one occasion? 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 Gender Identity Female 06/18/2020 3:18 PM CDT Sexual Orientation Choose not to disclose 2020 3:18 PM CDT documented as of this encounter Last Filed Vital Signs Vital Sign Reading Time Taken Comments Blood Pressure 120/80 12/17/2021 10:17 AM CDT Pulse 93 12/17/2021 10:17 AM CDT Temperature 36.8 ??C (98.2 ??F) 12/17/2021 1 0:17 AM CDT Respiratory Rate 17 12/17/2021 10:1 7 AM CDT Oxygen Saturation 99% 12/17/2021 10: 17 AM CDT Inhaled Oxygen Concentration - - Weight 86.5 kg (190 lb 12.8 oz) 022 10:17 AM CDT Height 165.1 cm (5' 5 ) 12/17/2021 10:1 7 AM CDT Body Mass Index 31.75 12/17/2021 10:17 AM CDT documented in this encounter Ordered Prescriptions Prescription Sig Dispense Quantity Refills Last Filled Start Date End Date dextroamphetamine-a mphetamine XR (ADDERALL XR) 30 mg 24 hr capsuleIndications: Attention deficit disorder (ADD) without hyperactivity Take 1 capsule (30 mg total) by mouth every morning 30 capsule 12/17/2021 2 documented in this encounter Progress Notes * Teresa Cadet PA - 12/17/2021 10:00 AM CDT Images from the original note were not included. CHIEF COMPLAINT: Chief Complaint Patient presents with Review Medications Discuss increasing dose of Adderall SUBJECTIVE: She is a 31 y.o. female who presents today for f/u on ADD. She says she's doing well on the adderall but feels she would like to increase the adderall. 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 Denies cp, sob, palpitations, insomnia. She is tolerating well without SE's. She feels it is otherwise working well for her at once daily. She did have NCS which was negative for neuropathy or CTS. She feels the cock up wrist splints are working for her sx with wearing them at night at times. She has no other new sx since last visit. ROS: Review of Systems Constitutional: Negative for [...] patient is not nervous/anxious. PHYSICAL EXAM: Vitals: 12/17/21 1017 BP: 120/80 Pulse: 93 Resp: 17 Temp: 36.8 ??C (98.2 ??F) TempSrc: Oral SpO2: 99% Weight: 86.5 kg (190 lb 12.8 oz) Height: 165.1 cm (5' 5 ) Body mass index is 31.75 kg/m??. GENERAL: Patient is awake alert and [...] in place NECK: No cervical lymphadenopathy noted. CHEST: No chest wall tenderness noted. Lungs [...] Appropriate affect. Denies suicidal or homicidal ideation. 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 Uncontrolled. Increase adderall to 30 mg. [place] risk control specialist monitored Carpal tunnel syndrome of left wrist (G56.02) Reviewed NCS which was wnl. Cont cock up wrist splints prn. Rtc/call if sx worsen, new concerns arise JULITO Salcedo documented in this encounter Plan of Treatment Not on file documented as of this encounter Visit Diagnoses Diagnosis Attention deficit disorder (ADD) without hyperactivity- Primary Carpal tunnel syndrome of left wrist documented in this encounter Discontinued Medications Medication Sig Discontinue Reason Start Date End Da te dextroamphetamine-ampheta mine XR (ADDERALL XR) 20 mg 24 hr capsuleIndications:Attent ion deficit disorder (ADD) without hyperactivity Take 1 capsule (20 mg total) by mouth every morning 11/10/2021 12/17/2021 documented as of this encounter Historical Medications * This list may reflect changes made after this encounter. EluRyng 0.12-0.015 mg/24 hr vaginal ring INSERT 1 RING VAGINALLY, LEAVE IN PLACE FOR 3 WEEKS, FOLLOWED BY 1 RING FREE WEEK 12/03/2021 06/17/2022 added in this encounter Care Teams Graphic Designer Relationship Specialty Start Date End Date Teresa Cadet PA PCP - General Family Medicine 12/17/21 10/03/22 documented as of this encounter
--- OUTSIDE RECORDS SUMMARY | 2024-04-08 16:58 | XMS_ITS | Encounter Summary ---
Author Organization [facility] Address [address] [address] Care Team Providers Care Cobbler Upper Name Role Phone Willy Gant MD Primary Care Provider [phone] Reason for Visit * Reason Onset Date Comments Physical Form 05/01/2021 Encounter Details Date Type Department Care Team (Late st Contact Info) Description 05/01/2021 Telephone [facility] Family Medicine [address] [place] [address] [place], [place] [address] [phone] Physical Form Social History Tobacco Use Types Packs/Day Years Used Date Smoking Tobacco: Former Cigarettes Q uit: 2012 E-cigarettes Smokeless Tobacco: Never Alcohol Use Standard Drinks/Week Comments Not Currently 0 (1 standard drink = 0.6 oz pur e alcohol) AUDIT-C Answer Date Recorded Q1: How often do you have a drink containing alc ohol? Monthly or less 12/11/2020 Q2: How many drinks containi ng alcohol do you have on a typical day when you are drinking? 1 or 2 12/11/2020 Q3: How often do you have si x or more drinks on one occasion? 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 Gender Identity Female 06/18/2020 3:18 PM CDT Sexual Orientation Choose not to disclose 2020 3:18 PM CDT documented as of this encounter Miscellaneous Notes * Telephone Encounter - Funmi Blevins MA - 05/01/2021 10:09 AM CST Completed, copy made for scan Left detailed vm for pt to pu Form in folder by front end loader driver TION SAFETY OFFICER * Telephone Encounter - Jaki Henley RN - 05/01/2021 10:03 AM AVIATION SAFETY OFFICER Form printed to my chart, filled out and put on kalyan's get to be signed TION SAFETY OFFICER documented in this encounter Plan of Treatment Not on file documented as of this encounter Visit Diagnoses Not on filedocumented in this encounter Care Teams Cobbler Upper Relationship Specialty Start Date End Date Willy Gant MD PCP - General Family Medicine 12/26/18 12/16/21 documented as of this encounter
--- OUTSIDE RECORDS SUMMARY | 2024-04-08 16:58 | XMS_ITS | Encounter Summary ---
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 Gender Identity Female 06/18/2020 3:18 PM CDT Sexual Orientation Choose not to disclose 2020 3:18 PM CDT documented as of this encounter Miscellaneous Notes * Telephone Encounter - Funmi Blevins MA - 09/03/2021 2:11 PM CDT Addressed in a refill encounter * Telephone Encounter - Ava Berkowitz - 09/03/2021 2:04 PM CDT Refill on Adderall XR 20mg [facility] [place], [place] Appt 09/15/2021 documented in this encounter Plan of Treatment Not on file documented as of this encounter Visit Diagnoses Not on filedocumented in this encounter Care Teams Manager Sound Relationship Specialty Start Date End Date Willy Gant MD PCP - General Family Medicine 12/26/18 12/16/21 documented as of this encounter
--- OUTSIDE RECORDS SUMMARY | 2024-04-08 16:58 | XMS_ITS | Encounter Summary ---
Author Organization [facility] Address [address] [facility] [address] [place] [address] Care Team Providers Care Qc Manager Name Role Phone Willy Gant MD Primary Care Provider [phone] Reason for Visit * Reason Onset Date Comments Prior Auth 04/29/2021 Encounter Details Date Type Department Care Team ([facility] st Contact Info) Description 04/29/2021 Telephone [facility] Family Medicine [address] [place] [address] Willy Gant MD [facility] [address] [place] [address] Prior Auth Social History Tobacco Use Types Packs/Day Years [...] on file Legal Sex Female 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 Gender Identity Female 06/18/2020 3:18 PM CDT Sexual Orientation Choose not to disclose 2020 3:18 PM CDT documented as of this encounter Miscellaneous Notes * Telephone Encounter - Funmi Blevins MA - 04/29/2021 4:02 PM CST ----- Message from Jaki Henley RN sent at 04/28/2021 1:49 PM AUTOMOTIVE LUBE TECHNICIAN ----- Regarding: FW: Inoalmita mack ----- Message ----- From: Teresa Cadet PA Sent: 04/28/2021 1:40 PM AUTOMOTIVE LUBE TECHNICIAN To: Jaki Henley RN Subject: FW: Inoyanse converse ----- Message ----- From: Jaki Henley RN Sent: 04/27/2021 4:07 PM AUTOMOTIVE LUBE TECHNICIAN To: JULITO Salcedo Subject: FW: Vyanse converse ----- Message ----- From: Alise Augustine Sent: 04/27/2021 4:04 PM AUTOMOTIVE LUBE TECHNICIAN To: [facility] [address] Clinical Subject: Vyanse frederick Hanks, As of 04/06/2021 I have reduced my work hours to accommodate attending school. When I did that I lost my [employer] insurance and am now on state insurance. The pharmacy told me that the state will not cover my vyvanse prescription because I am over the age of 21. I tried to use a vyvanse savings card, but the pharmacy told me that I cannot use that while on state insurance. That it is a copay card to be used after something is ran through insurance. Can someone please contact me and let me know what steps I need to take to get my prescription covered or if Teresa needs to write a letter on my behalf? Thank you. MOTIVE LUBE TECHNICIAN documented in this encounter Plan of Treatment Not on file documented as of this encounter Visit Diagnoses Not on filedocumented in this encounter Care Teams Qc Manager Relationship Specialty Start Date End Date Willy Gant MD PCP - General Family Medicine 12/26/18 12/16/21 documented as of this encounter
--- OUTSIDE RECORDS SUMMARY | 2024-04-08 16:58 | XMS_ITS | Encounter Summary ---
Author Organization [facility] Address [address] [facility] [address] [place] [id number] Care Team Providers Care Data Analyst Report Writer Name Role Phone Willy Gant MD Primary Care Provider [phone] Reason for Visit * Reason Comments Follow-up meds Encounter Details Date Type Department Care Team (Late st Contact Info) Description 06/10/2021 10:00 AM OCCUPATIONAL NURSE Office Visit [facility] Family Medicine [address] [place] [address] Teresa Cadet, JULITO [address] [address] Attention deficit disorder (ADD) without hyperactivity (Primary [...] on file Legal Sex Female 6:49 PM OCCUPATIONAL NURSE Gender Identity Female 06/18/2020 3:18 PM CDT Sexual Orientation Choose not to disclose 2020 3:18 PM CDT documented as of this encounter Last Filed Vital Signs Vital Sign Reading Time Taken Comments Blood Pressure 118/72 06/10/2021 10:48 AM OCCUPATIONAL NURSE Pulse 98 06/10/2021 10:48 AM OCCUPATIONAL NURSE Temperature 36.7 ??C (98 ??F) 06/10/2021 10:48 AM OCCUPATIONAL NURSE Respiratory Rate 18 06/10/2021 10:48 AM OCCUPATIONAL NURSE Oxygen Saturation 98% 06/10/2021 10:48 AM OCCUPATIONAL NURSE Inhaled Oxygen Concentration - - Weight 91.3 kg (201 lb 3.2 oz) 06/10/2021 10:48 AM OCCUPATIONAL NURSE Height 165.1 cm (5' 5 ) 06/10/2021 10:48 AM OCCUPATIONAL NURSE Body Mass Index 33.48 06/10/2021 10:48 AM OCCUPATIONAL NURSE documented in this encounter Ordered Prescriptions Prescription Sig Dispense Quantity Refills Last Filled Start Date End Date busPIRone (BUSPAR) 10 mg tabletIndications: Generalized Anxiety Disorder Take 1 tablet (10 mg total) by mouth 2 (two) times a day as needed (anxiety) 60 tablet 2 06/10/2021 10/12/2021 documented in this encounter Progress Notes * Teresa Cadet PA - 06/10/2021 10:00 AM CST Images from the original note were not included. CHIEF COMPLAINT: Chief Complaint Patient presents with ??? Follow-up meds SUBJECTIVE: She is a 30 y.o. female who presents today for f/u on ADD. States she is tolerating adderall well and denies cp, sob, palpitations but doesn't feel it's lasting her past 3-4 hrs after taking med and has long days of class and homework in the evening. States it's not disrupting her sleep. She has been avoiding caffeine with medication. She felt the vyvanse definitely helped her focus and complete tasks and wasn't feeling peaks and crashes with vyvanse like she is with adderall. Still awaiting insurance appeal on vyvanse. She does request refill on buspar for her anxiety. ROS: Review of Systems Constitutional: Negative for [...] patient is not nervous/anxious. PHYSICAL EXAM: Vitals: 06/10/21 1048 BP: 118/72 BP Location: Right arm Patient Position: Sitting Pulse: 98 Resp: 18 Temp: 36.7 ??C (98 ??F) TempSrc: Oral SpO2: 98% Weight: 91.3 kg (201 lb 3.2 oz) Height: 165.1 cm (5' 5 ) Body mass index is 33.48 kg/m??. GENERAL: Patient is awake alert and [...] auscultated. No rubs, gallops, or murmurs appreciated. ABDOMEN: Soft, nontender, and nondistended. There are positive bowel sounds in all 4 quadrants. EXTREMITIES: No lower extremity edema noted bilaterally. No calf tenderness noted bilaterally. No clubbing or cyanosis noted. 2+ pulses in LE b/l. NEUROLOGIC: Gait was unremarkable. No focal neurologic deficits observed. PSYCH: Appropriate affect. Denies suicidal or homicidal ideation. 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 Not to goal. Pt did much better with vyvanse but awaiting insurance appeal. May increase adderall to 2 tablets (20 mg) daily. she has previously tried and failed concerta, ritalin, and strattera. vyvanse has helped her the most and she has tolerated this the best so will cont to work on appeal JACQUELINE (generalized anxiety disorder) (F41.1) - busPIRone (BUSPAR) 10 mg tablet; Take 1 tablet (10 mg total) by mouth 2 (two) times a day as needed (anxiety) Stable. cont buspar prn. JULITO Salcedo PATIONAL NURSE documented in this encounter Plan of Treatment Not on file documented as of this encounter Visit Diagnoses Diagnosis Attention deficit disorder (ADD) without hyperactivity- Primary JACQUELINE (generalized anxiety disorder) Generalized anxiety disorder documented in this encounter Discontinued Medications Medication Sig Discontinue Reason Start Date End Da te busPIRone (BUSPAR) 10 mg tabletIndications:Genera lized Anxiety Disorder Take 1 tablet (10 mg total) by mouth 2 (two) times a day as needed (anxiety) Reorder 03/09/2021 06/10/2021 documented as of this encounter Care Teams Data Analyst Report Writer Relationship Specialty Start Date End Date Willy Gant MD PCP - General Family Medicine 12/26/18 12/16/21 documented as of this encounter
--- OUTSIDE RECORDS SUMMARY | 2024-04-08 16:58 | XMS_ITS | Encounter Summary ---
Author Organization [facility] Address [address] [facility] [address] [place] [address] Care Team Providers Care Horticulture/Floriculture Teacher Name Role Phone Teresa Cadet Primary Care Provider + Reason for Visit * Reason Comments Abdominal Pain Concerned about poss ible hernia Encounter Details Date Type Department Care Team (Late st Contact Info) Description 08/04/2022 9:45 AM CDT Office Visit [facility] Family Medicine at [address] [place] [address] Deven Ng MD [address] [place] [address] [address] [place], [place] [id number] Dyspepsia (Primary Dx); Class 1 obesity due to excess calories without serious comorbidity with body mass index (BMI) of 31.0 to 31.9 in adult Social History Tobacco Use Types Packs/Day Years [...] on file 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 Gender Identity Female 06/18/2020 3:18 PM CDT Sexual Orientation Choose not to disclose 2020 3:18 PM CDT documented as of this encounter Last Filed Vital Signs Vital Sign Reading Time Taken Comments Blood Pressure - - Pulse - - Temperature - - Respiratory Rate - - Oxygen Saturation - - Inhaled Oxygen Concentration - - Weight 86.2 kg (190 lb) 08/04/2022 9:41 AM CDT Height 165.1 cm (5' 5 ) 08/04/2022 9:41 AM CDT Body Mass Index 31.62 08/04/2022 9:41 AM CDT documented in this encounter Ordered Prescriptions Prescription Sig Dispense Quantity Refills Last Filled Start Date End Date sucralfate (CARAFATE) 1 gram tabletIndications: Dyspepsia Take 1 tablet (1 g total) by mouth 4 (four) times a day for 14 days 56 tablet 08/04/2022 10/04/[address] (PROTONIX) 40 mg EC tabletIndications: Dyspepsia Take 1 tablet (40 mg total) by mouth 2 (two) times a day for 14 days 28 tablet 08/04/2022 10/04/2022 documented in this encounter Progress Notes * Deven Ng MD - 08/04/2022 9:45 AM CDT Images from the original note were not included. Visit date: 08/04/2022 Patient ID: Alise Augustine is a 32 y.o. female. Chief Complaint. Chief Complaint Patient presents with Abdominal Pain Concerned about possible hernia HPI. Patient is a 32 y.o. female Abdominal Pain This is a new problem. The current episode started in the past 7 days. The onset quality is gradual. The problem occurs constantly. The problem has been gradually worsening. The pain is located in the epigastric region and periumbilical region. The pain is at a severity of 4/10. The pain is moderate. The quality of the pain is burning. The abdominal pain does not radiate. Associated symptoms include belching. Pertinent negatives include no anorexia, arthralgias, constipation, diarrhea, dysuria,fever, flatus, frequency, headaches, hematochezia, hematuria, melena, myalgias, nausea, vomiting orweight loss. The pain is aggravated by eating. The pain is relieved by Nothing. She has tried nothing for the symptoms. The treatment provided no relief. History of colon cancer: psia. Past Medical History: Diagnosis Date Anxiety Breast lump 12/2021 Right breast/ Mammogram scheduled @ [facility] 12.22.2021 Headache History reviewed. No pertinent surgical history. Allergies Allergen Reactions Penicillins Anaphylaxis Cephalosporins Hives, Swelling and Urticaria Penicillin G Hives Sulfadiazine Rash Social History Tobacco Use Smoking status: Former Packs/day: 1.00 Types: E-cigarettes, Cigarettes, Vaping Quit date: 07/13/2022 Years since quittin.1 Smokeless tobacco: Never Substance and Sexual Activity Drug use: Never Sexual activity: Defer Alcohol Use: Not At Risk (08/04/2022) AUDIT-C Frequency of Alcohol Consumption: 2-4 times a month Average Number of Drinks: 1 or 2 Frequency of Binge Drinking: Never Family History Problem Relation Age of Onset Diabetes Mother Heart disease Mother Hyperlipidemia Mother Hypertension Mother Thyroid disease Mother Hyperlipidemia Father No Known Problems Sister No Known Problems Brother No Known Problems Daughter No Known Problems Brother Current Medications: Outpatient Encounter Medications as of 08/04/2022 Medication Sig Dispense Refill dextroamphetamine-amphetamine (ADDERALL) 30 mg tablet Take 1 tablet (30 mg total) by mouth daily 30tablet 0 busPIRone (BUSPAR) 10 mg tablet TAKE 1 TABLET BY MOUTH 2 TIMES A DAY NEEDED (ANXIETY). (Patient not taking: Reported on 06/17/2022) 180 tablet 0 dextroamphetamine-amphetamine XR (ADDERALL XR) 30 mg 24 hr capsule Take 1 capsule (30 mg total) by mouth every morning (Patient not taking: Reported on 08/04/2022) [address] (PROTONIX) 40 mg EC tablet Take 1 tablet (40 mg total) by mouth 2 (two) times a dayfor 14 days 28 tablet 0 sucralfate (CARAFATE) 1 gram tablet Take 1 tablet (1 g total) by mouth 4 (four) times a day for 14 days 56 tablet 0 No facility-administered encounter medications on file as of 08/04/2022. Review of Systems: Review of Systems Constitutional: Negative for fever and weight loss. Gastrointestinal: Positive for abdominal pain. Negative for anorexia, constipation, diarrhea, flatus, hematochezia, melena, nausea and vomiting. Genitourinary: Negative for dysuria, frequency and hematuria. Musculoskeletal: Negative for arthralgias and myalgias. Neurological: Negative for headaches. Ht 165.1 cm (5' 5 ) Wt 86.2 kg (190 lb) BMI 31.62 kg/m?? Physical Exam: Physical Exam Vitals and nursing note reviewed. Constitutional: General: She is not in acute distress. Appearance: She is well-developed. She is not diaphoretic. HENT: Head: Normocephalic and atraumatic. Eyes: Pupils: Pupils are equal, round, and reactive to light. Cardiovascular: Rate and Rhythm: Normal rate and regular rhythm. Heart sounds: Normal heart sounds. Pulmonary: Effort: Pulmonary effort is normal. Breath sounds: Normal breath sounds. Abdominal: Tenderness: There is abdominal tenderness in the epigastric area and periumbilical area. There is no right CVA tenderness, left CVA tenderness, guarding or rebound. Negative signs include Sanders's sign, Rovsing's sign, McBurney's sign, psoas sign and obturator sign. Hernia: No hernia is present. Musculoskeletal: Cervical back: Normal range of motion and neck supple. Neurological: Mental Status: She is alert and oriented to person, place, and time. Psychiatric: Behavior: Behavior normal. Thought Content: Thought content normal. Judgment: Judgment normal. Assessment & Plan: Diagnoses and all orders for this visit: Dyspepsia (Primary) Comments: chronic. Recurrent. Trial of Protonix and carafate x14d. Consider GI Referralif symptoms persist. Orders: - pantoprazole DR (PROTONIX) 40 mg EC tablet; Take 1 tablet (40 mg total) by mouth 2 (two) times a day for 14 days - sucralfate (CARAFATE) 1 gram tablet; Take 1 tablet (1 g total) by mouth 4 (four) times a day for 14 days Class 1 obesity due to excess calories without serious comorbidity with body mass index (BMI) of 31.0 to 31.9 in adult Assessment & Plan: Recommended aggressive Lifestyle modification and weight loss for improving overall weight related health conditions. Follow up in 1 or 3 months for continuing Lifestyle Medicine education and management visit. Recommend Lifestyle Seminar on Wednesdays @ 5pm. Body mass index is 31.62 kg/m??. BMI Plan: Nutrition/Activities/Behavioral Counseling. Education Provided. Deven Ng MD documented in this encounter Miscellaneous Notes * Assessment & Plan Note - Deven Ng MD - 09/21/2022 4:52 PM CDTAssociated Problem(s): Class 1 obesity due to excess calories without serious comorbidity with bodymass index (BMI) of 31.0 to 31.9 in adult Recommended aggressive Lifestyle modification and weight loss for improving overall weight related health conditions. Follow up in 1 or 3 months for continuing Lifestyle Medicine education and management visit. Recommend Lifestyle Seminar on Wednesdays @ 5pm. documented in this encounter Plan of Treatment Not on file documented as of this encounter Visit Diagnoses Diagnosis Dyspepsia- Primary Dyspepsia and other specified disorders of function of stomach Class 1 obesity due to excess calories without serious comorbidity with body mass index (BMI) of 31.0 to 31.9 in adult documented in this encounter Care Teams Horticulture/Floriculture Teacher Relationship Specialty Start Date End Date Teresa Cadet PA PCP - General Family Medicine 12/17/21 10/03/22 documented as of this encounter
--- OUTSIDE RECORDS SUMMARY | 2024-04-08 16:58 | XMS_ITS | Encounter Summary ---
Author Organization [facility] Address [address] [place] [address] Care Team Providers Care Information Security Risk Analyst Name Role Phone Willy Gant MD Primary Care Provider [phone] Reason for Visit * Reason Comments ADD Wellness Visit Encounter Details Date Type Department Care Team (Late st Contact Info) Description 12/11/2020 2:15 PM CDT Office Visit 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 Gender Identity Female 06/18/2020 3:18 PM CDT Sexual Orientation Choose not to disclose 2020 3:18 PM CDT documented as of this encounter Last Filed Vital Signs Vital Sign Reading Time Taken Comments Blood Pressure 112/80 12/11/2020 3:13 PM CDT Pulse 84 12/11/2020 3:13 PM CDT Temperature - - Respiratory Rate 16 12/11/2020 3:13 PM CDT Oxygen Saturation - - Inhaled Oxygen Concentration - - Weight 85.5 kg (188 lb 6.4 oz) 12/11/2020 3:13 P M CDT Height 165.1 cm (5' 5 ) 12/11/2020 3:13 PM CDT Body Mass Index 31.35 12/11/2020 3:13 PM CDT documented in this encounter Ordered Prescriptions Prescription Sig Dispense Quantity Refills Last Filled Start Date End Date lisdexamfetamine (Vyvanse) 30 mg capsuleIndications: Attention deficit disorder (ADD) without hyperactivity Take 1 capsule (30 mg total) by mouth every morning 30 capsule 02/09/2021 documented in this encounter Progress Notes * Willie Lawrence PA - 12/11/2020 2:15 PM CDT Images from the original note were not included. Subjective/Objective Patient ID: Alise Augustine is a 30 y.o. female. Chief Complaint ADD and Wellness Visit HPI Patient is here for yearly wellness as well as follow-up for ADD. She has been on Vyvanse she states she is tolerating well without side effects. She does occasionally get insomnia but able to compensate with Benadryl and melatonin. Patient states her 30 mg dosing D efficient correcting her attention deficit with decreasing her distractibility but keeping her task oriented. Patient also has no new concerns she does follow with OBGYN she denies any chest pain palpitations shortness of breath no GI changes at this time. Review of Systems Constitutional: Negative for fatigue, [...] Psychiatric/Behavioral: Negative for confusion and dysphoric mood. Physical Exam Vitals reviewed. Constitutional: General: She is not in acute distress. Appearance: She is well-developed. HENT: Head: Normocephalic. Right Ear: External ear normal. Left Ear: External ear normal. Eyes: Conjunctiva/sclera: Conjunctivae normal. Pupils: Pupils are equal, round, and reactive to light. Neck: Thyroid: No thyromegaly. Comments: ROM appropriate Cardiovascular: Rate and Rhythm: Normal rate and regular rhythm. Heart sounds: Normal heart sounds. No murmur heard. No friction rub. No gallop. Pulmonary: Effort: Pulmonary effort is normal. Breath sounds: Normal breath sounds. Abdominal: General: Bowel sounds are normal. There is no distension. Palpations: Abdomen is soft. Tenderness: There is no abdominal tenderness. Musculoskeletal: Cervical back: Neck supple. Comments: ROM appropriate Skin: General: Skin is warm and dry. Capillary Refill: Capillary refill takes less than 2 seconds. Neurological: Mental Status: She is alert and oriented to person, place, and time. Psychiatric: Behavior: Behavior normal. Health Maintenance Topic Date Due ??? Cervical Cancer Screening-Pap Smear Never done ??? Varicella Vaccines (1 of 2 - 2-dose childhood series) Never done ??? Influenza Vaccine (1) 12/03/2020 ??? Depression Screening-PHQ 12/11/2021 ??? Regular Well Visit/Exam 12/11/2021 ??? DTaP/Tdap/Td Vaccine (3 - Td or Tdap) 04/05/2024 ??? Covid-19 Vaccine Completed PHQ Screening Over the last 2 weeks, how often have you been bothered by any of the following problems? Little Interest or Pleasure in Doing Things: Not at all Feeling Down, Depressed, or Hopeless: Not at all PHQ-2 Total Score (If total score is 3 or more points, staff should administer the PHQ-9): 0 Over the past 2 weeks, how often have you been bothered by any of the following problems? Little Interest or Pleasure in Doing Things: Not at all Feeling Down, Depressed, or Hopeless: Not at all PHQ-2 Total Score (If total score is 3 or more points, staff should administer the PHQ-9): 0 Assessment/Plan Diagnoses and all orders for this visit: Annual physical exam (Z00.00) (Primary) Comments: completed wellness form Attention deficit disorder (ADD) without hyperactivity (F98.8) Assessment & Plan: Chronic condition stable and well controlled with vyvanse 30mg Orders: - lisdexamfetamine (Vyvanse) 30 mg capsule; Take 1 capsule (30 mg total) by mouth every morning JULITO Salazar documented in this encounter Miscellaneous Notes * Assessment & Plan Note - Willie Lawrence PA - 12/11/2020 3:27 PM CDTAssociated Problem(s): Attention deficit disorder (ADD) without hyperactivity Chronic condition stable and well controlled with vyvanse 30mg documented in this encounter Plan of Treatment Not on file documented as of this encounter Visit Diagnoses Diagnosis Annual physical exam- Primary Routine general medical examination at a health care facility Attention deficit disorder (ADD) without hyperactivity documented in this encounter Discontinued Medications Medication Sig Discontinue Reason Start Date End Da te lisdexamfetamine (VYVANSE) 30 mg capsuleIndications:Attent ion deficit disorder (ADD) without hyperactivity Take 1 capsule (30 mg total) by mouth every morning 11/21/2020 12/11/2020 documented as of this encounter Care Teams Information Security Risk Analyst Relationship Specialty Start Date End Date Willy Gant MD PCP - General Family Medicine 12/26/18 12/16/21 documented as of this encounter
--- OUTSIDE RECORDS SUMMARY | 2024-04-08 16:58 | XMS_ITS | Encounter Summary ---
Author Organization [facility] Address [address] [place] [address] Care Team Providers Care Production Troubleshooter Name Role Phone Willy Gant MD Primary Care Provider [phone] Encounter Details Date Type Department Care Team (Late st Contact Info) Description 11/19/2021 Orders Only [facility] Health Information Management [address] [place] [address] Scanning, Provider Social History Tobacco Use Types Packs/Day Years Used Date Smoking Tobacco: Former Cigarettes Q uit: 2012 E-cigarettes Smokeless Tobacco: Never Alcohol Use Standard Drinks/Week Comments Not Currently 0 (1 standard drink = 0.6 oz pur e alcohol) AUDIT-C Answer Date Recorded Q1: How often do you have a drink containing alc ohol? 2-4 times a month 09/15/2021 Q2: How many drinks containi ng alcohol do you have on a typical day when you are drinking? 1 or 2 09/15/2021 Q3: How often do you have si x or more drinks on one occasion? 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 Gender Identity Female 06/18/2020 3:18 PM CDT Sexual Orientation Choose not to disclose 2020 3:18 PM CDT documented as of this encounter Plan of Treatment Not on file documented as of this encounter Procedures Procedure Name Priority Date/Time Associated Diagnosis Comments SCAN - NEUROLOGY 11/19/2021 documented in this encounter Results * SCAN - NEUROLOGY (11/19/2021) Anatomical Region Laterality Modality Other us Provider Scanning Final Result documented in this encounter Visit Diagnoses Not on filedocumented in this encounter Care Teams Production Troubleshooter Relationship Specialty Start Date End Date Willy Gant MD PCP - General Family Medicine 12/26/18 12/16/21 documented as of this encounter
--- OUTSIDE RECORDS SUMMARY | 2024-04-08 16:58 | XMS_ITS | Encounter Summary ---
Author Organization [facility] Address [address] [place] [address] Care Team Providers Care General Pediatrician Name Role Phone Willy Gant MD Primary Care Provider [phone] Reason for Visit * Reason Comments Follow-up meds Encounter Details Date Type Department Care Team (Late st Contact Info) Description 03/09/2021 11:15 AM IMMIGRATION LAW SPECIALIST Office Visit [facility] Family Medicine [address] [place] [address] Teresa Cadet, JULITO [address] [address] Attention deficit disorder (ADD) without hyperactivity (Primary [...] on file Legal Sex Female 6:49 PM IMMIGRATION LAW SPECIALIST Gender Identity Female 06/18/2020 3:18 PM CDT Sexual Orientation Choose not to disclose 2020 3:18 PM CDT documented as of this encounter Last Filed Vital Signs Vital Sign Reading Time Taken Comments Blood Pressure 114/70 03/09/2021 12:37 PM IMMIGRATION LAW SPECIALIST Pulse 89 03/09/2021 12:37 PM IMMIGRATION LAW SPECIALIST Temperature 37.2 ??C (99 ??F) 03/09/2021 12:37 PM IMMIGRATION LAW SPECIALIST Respiratory Rate 18 03/09/2021 12:37 PM IMMIGRATION LAW SPECIALIST Oxygen Saturation 98% 03/09/2021 12:37 PM IMMIGRATION LAW SPECIALIST Inhaled Oxygen Concentration - - Weight 89.4 kg (197 lb) 03/09/2021 12:37 PM IMMIGRATION LAW SPECIALIST Height 165.1 cm (5' 5 ) 03/09/2021 12:37 PM IMMIGRATION LAW SPECIALIST Body Mass Index 32.78 03/09/2021 12:37 PM IMMIGRATION LAW SPECIALIST documented in this encounter Ordered Prescriptions Prescription Sig Dispense Quantity Refills Last Filled Start Date End Date lisdexamfetamine (Vyvanse) 30 mg capsuleIndications: Attention deficit disorder (ADD) without hyperactivity Take 1 capsule (30 mg total) by mouth every morning 30 capsule 03/09/2021 2 busPIRone (BUSPAR) 10 mg tabletIndications:G eneralized Anxiety Disorder Take 1 tablet (10 mg total) by mouth 2 (two) times a day as needed (anxiety) 60 tablet 2 03/09/2021 2 documented in this encounter Progress Notes * Teresa Cadet PA - 03/09/2021 11:15 AM CST Images from the original note were not included. CHIEF COMPLAINT: Chief Complaint Patient presents with ??? Follow-up meds SUBJECTIVE: She is a 30 y.o. female who presents today for f/u on ADD, JACQUELINE. She says she's doing well on vyvanse and is tolerating well. 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 Denies any cp, sob, palpitations. She has been taking buspar more regularly for her anxiety, which works well for her. States sometimes she requires twice daily. She feels anxiety is stable at this time. She feels the current dose of vyvanse is working well for her and does not desiremed changes at this time ROS: Review of Systems Constitutional: Negative for [...] patient is not nervous/anxious. PHYSICAL EXAM: Vitals: 03/09/21 1237 BP: 114/70 BP Location: Left arm Patient Position: Sitting Pulse: 89 Resp: 18 Temp: 37.2 ??C (99 ??F) TempSrc: Oral SpO2: 98% Weight: 89.4 kg (197 lb) Height: 165.1 cm (5' 5 ) Body mass index is 32.78 kg/m??. GENERAL: Patient is awake alert and [...] are positive bowel sounds in all 4 quadrants EXTREMITIES: No lower extremity edema noted bilaterally. No calf tenderness noted bilaterally. No clubbing or cyanosis noted. 2+ pulses in LE b/l. NEUROLOGIC: Gait was unremarkable. No focal neurologic deficits observed. PSYCH: Appropriate affect. Denies suicidal or homicidal ideation. Assessment/Plan Diagnoses and all orders for this visit: Attention deficit disorder (ADD) without hyperactivity (F98.8) (Primary) - lisdexamfetamine (Vyvanse) 30 mg capsule; Take 1 capsule (30 mg total) by mouth every morning CV exam wnl. Stable on current regimen. [place] saw man was monitored JACQUELINE (generalized anxiety disorder) (F41.1) - busPIRone (BUSPAR) 10 mg tablet; Take 1 tablet (10 mg total) by mouth 2 (two) times a day as needed (anxiety) Cont buspar prn. stable JULITO Salcedo GRATION LAW SPECIALIST documented in this encounter Plan of Treatment Not on file documented as of this encounter Visit Diagnoses Diagnosis Attention deficit disorder (ADD) without hyperactivity- Primary JACQUELINE (generalized anxiety disorder) Generalized anxiety disorder documented in this encounter Discontinued Medications Medication Sig Discontinue Reason Start Date End Da te busPIRone (BUSPAR) 10 mg tabletIndications:General ized Anxiety Disorder Take 10 mg by mouth as needed Reorder 03/09/2021 lisdexamfetamine (Vyvanse) 30 mg capsuleIndications:Attent ion deficit disorder (ADD) without hyperactivity Take 1 capsule (30 mg total) by mouth every morning Reorder 01/14/2021 03/09/2021 documented as of this encounter Care Teams General Pediatrician Relationship Specialty Start Date End Date Willy Gant MD PCP - General Family Medicine 12/26/18 12/16/21 documented as of this encounter
--- OUTSIDE RECORDS SUMMARY | 2024-04-08 16:58 | XMS_ITS | Encounter Summary ---
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
--- OUTSIDE RECORDS SUMMARY | 2024-04-08 16:58 | XMS_ITS | Encounter Summary ---
Author Organization [facility] Address [address] [address] Care Team Providers Care Medical Administrative Specialist Name Role Phone Willy Gant MD Primary Care Provider [phone] Reason for Visit * Reason Onset Date Comments Letter for School/Work 04/17/2021 Encounter Details Date Type Department Care Team (Late st Contact Info) Description 04/17/2021 Telephone [facility] Family Medicine [address] [place] [address] Teresa Cadet, JULITO [address] [address] Letter for School/Work Social History Tobacco Use Types Packs/Day Years [...] on file Legal Sex Female 6:49 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 I have to take a drug test for [employer] school and I was hoping you could right a letter explaining thatstimulates may show as positive for my test due to being on by vyvanse. Could you please send this to my email at [email or web address] Thank you! VIOR ANALYST documented in this encounter Plan of Treatment Not on file documented as of this encounter Visit Diagnoses Not on filedocumented in this encounter Care Teams Medical Administrative Specialist Relationship Specialty Start Date End Date Willy Gant MD PCP - General Family Medicine 12/26/18 12/16/21 documented as of this encounter
--- OUTSIDE RECORDS SUMMARY | 2024-04-08 16:58 | XMS_ITS | Encounter Summary ---
Author Organization [facility] Address [address] [facility] [address] [place] [address] Care Team Providers Care Dietetic Technician Registered Name Role Phone Willy Gant MD Primary Care Provider [phone] Reason for Visit * Reason Onset Date Comments Prior Auth 06/02/2021 Encounter Details Date Type Department Care Team ([facility] st Contact Info) Description 06/02/2021 Telephone [facility] Family Medicine [address] [place] [address] Willy Gant MD [facility] [address] [place] [address] Prior Auth Social History Tobacco Use Types [...] on file Legal Sex Female 6:49 PM DIRECTOR OF CARDIAC CATH LAB Gender Identity Female 06/18/2020 3:18 PM CDT Sexual Orientation Choose not to disclose 2020 3:18 PM CDT documented as of this encounter Miscellaneous Notes * Telephone Encounter - Priti Leiva MA - 06/03/2021 3:38 PM CST This is the info pt provided me for her new insurance ID number [id number] [facility] and they are saying pt doesn't have active coverage right now. Pt says her card doesn't have Dr. Rubalcava name on it. Informed her it needs to have this. Left vm forpt instructing her to call and fix or else we cant submit PA for her. CTOR OF CARDIAC CATH LAB * Telephone Encounter - Funmi Blevins MA - 06/02/2021 9:07 AM CST ----- Message from Jaki Henley RN sent at 05/29/2021 12:05 PM DIRECTOR OF CARDIAC CATH LAB ----- Regarding: FW: Wayne ----- Message ----- From: Alise Augustine Sent: 05/29/2021 11:07 AM DIRECTOR OF CARDIAC CATH LAB To: [facility] [address] Clinical Subject: Wayne Hanks, Could I please have an update on this situation? I understand that this process may take some time but I???d like to be kept in the loop about what???s going on. I???ve tried to call the office over the last two weeks and I???m unable to get through because there is constantly a busy signal. Not having access to my medicine is making things in my life very hard to navigate and I haven???t heard anything from the office in close to a month. Please have someone reach out to me. Thank you. CTOR OF CARDIAC CATH LAB documented in this encounter Plan of Treatment Not on file documented as of this encounter Visit Diagnoses Not on filedocumented in this encounter Care Teams Dietetic Technician Registered Relationship Specialty Start Date End Date Willy Gant MD PCP - General Family Medicine 12/26/18 12/16/21 documented as of this encounter
--- OUTSIDE RECORDS SUMMARY | 2024-04-08 16:58 | XMS_ITS | Referral Summary ---
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
--- OUTSIDE RECORDS SUMMARY | 2024-04-08 16:58 | XMS_ITS | Encounter Summary ---
Author Organization [facility] Address [address] [facility] [address] [place] [address] Care Team Providers Care Airline Attendant Name Role Phone Willy Gant MD Primary Care Provider [phone] Reason for Visit * Reason Onset Date Comments Prior Auth 05/13/2021 Encounter Details Date Type Department Care Team ([facility] st Contact Info) Description 05/13/2021 Telephone [facility] Family Medicine [address] [place] [address] Willy Gant MD [facility] [address] [place] [id number] Prior Auth Social History Tobacco Use Types [...] on file Legal Sex Female 6:49 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 Gender Identity Female 06/18/2020 3:18 PM CDT Sexual Orientation Choose not to disclose 2020 3:18 PM CDT documented as of this encounter Miscellaneous Notes * Telephone Encounter - Funmi Blevins MA - 05/19/2021 9:15 AM CST Tried to call pt Call would not go through D 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 * Telephone Encounter - Funmi Blevins MA - 05/18/2021 9:41 AM CST Sent to [facility] via [facility] Pt not found will have to call insurance D 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 * Telephone Encounter - Funmi Blevins MA - 05/13/2021 3:58 PM CST ----- Message from Jaki Henley RN sent at 05/11/2021 1:28 PM FIELD 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 ----- Regarding: FW: Vlonigermane ----- Message ----- From: Alise Augustine Sent: 05/11/2021 12:52 PM FIELD 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 To: [facility] 8587 Clinical Subject: Josesandi Latonya, I was just following up on this. Have we heard anything back from the state about coverage of the vyvanse? D 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 documented in this encounter Plan of Treatment Not on file documented as of this encounter Visit Diagnoses Not on filedocumented in this encounter Care Teams Airline Attendant Relationship Specialty Start Date End Date Willy Gant MD PCP - General Family Medicine 12/26/18 12/16/21 documented as of this encounter
--- OUTSIDE RECORDS SUMMARY | 2024-04-08 16:58 | XMS_ITS | Encounter Summary ---
Author Organization [facility] Address [address] [place] [address] Care Team Providers Care Content Management Consultant Name Role Phone Deven Ng MD Primary Care Provider [phone] Encounter Details Date Type Department Care Team (Late st Contact Info) Description 01/10/2023 Telephone [facility] Family Medicine at [address] [place] [address] Deven Ng MD [address] [place] [address] [address] [place] [address] Social History Tobacco Use Types Packs/Day Years Used Date Smoking Tobacco: Former Cigarettes Q uit: 2011 E-cigarettes Vaping Quit: 07/14/19 23 Smokeless Tobacco: Never Alcohol Use Standard Drinks/Week [...] on file 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 Gender Identity Female 06/18/2020 3:18 PM CDT Sexual Orientation Choose not to disclose 2020 3:18 PM CDT documented as of this encounter Miscellaneous Notes * Telephone Encounter - Ana Luisa Leal - 01/10/2023 9:03 AM CDT 1st no show letter sent 01/10/23 ks documented in this encounter Plan of Treatment Not on file documented as of this encounter Visit Diagnoses Not on filedocumented in this encounter Care Teams Content Management Consultant Relationship Specialty Start Date End Date Deven Ng MD [address] [facility] [address] [place] [address] PCP - General Family Medicine 10/04/22 documented as of this encounter
--- OUTSIDE RECORDS SUMMARY | 2024-04-08 16:58 | XMS_ITS | Encounter Summary ---
Author Organization [facility] Address [address] [address] Care Team Providers Care Spring Coiler Name Role Phone Willy Gant MD Primary Care Provider [phone] Reason for Visit * Reason Comments Attention deficit disorder (ADD) without hyperactivity wirst pain Left wrist, numbness Encounter Details Date Type Department Care Team (Late st Contact Info) Description 09/15/2021 10:00 AM CDT Office Visit [facility] Family Medicine [address] [place] [address] Teresa Cadet PA [address] [address] Attention deficit disorder (ADD) without hyperactivity (Primary Dx); Carpal tunnel syndrome of left wrist; JACQUELINE (generalized anxiety disorder) Social History Tobacco [...] on file 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 Gender Identity Female 06/18/2020 3:18 PM CDT Sexual Orientation Choose not to disclose 2020 3:18 PM CDT documented as of this encounter Last Filed Vital Signs Vital Sign Reading Time Taken Comments Blood Pressure 110/72 09/15/2021 10:49 AM CDT Pulse 101 09/15/2021 10:49 AM CDT Temperature 36.8 ??C (98.3 ??F) 09/15/2021 10:49 AM C DT Respiratory Rate 18 09/15/2021 10:49 AM CDT Oxygen Saturation 99% 09/15/2021 10:49 AM CDT Inhaled Oxygen Concentration - - Weight 88.5 kg (195 lb) 09/15/2021 10:49 AM CDT Height 165.1 cm (5' 5 ) 09/15/2021 10:49 AM CDT Body Mass Index 32.45 09/15/2021 10:49 AM CDT documented in this encounter Progress Notes * Teresa Cadet PA - 09/15/2021 10:00 AM CDT Images from the original note were not included. CHIEF COMPLAINT: Chief Complaint Patient presents with ??? Attention deficit disorder (ADD) without hyperactivity ??? wirst pain Left wrist, numbness SUBJECTIVE: She is a 31 y.o. female who presents today for f/u on ADD, anxiety. States she's doing well on med regimen and tolerating well. She feels the adderall works well to help her focus and complete tasks through school. She is tolerating well without Se's, including cp, sob, palpitations, insomnia. She doesn't feel she needs to adjust dose at this time. She hasn't been taking buspar much at all. She felt it was making her nauseous. She feels anxiety is stable. She has been attending therapy as well which she feels has helped. She has been noticing left wrist pain/numbness. She has had sx in the past but never persistent until a few mos ago when she started to experience sx more frequently. She gets throbbing pain in her hand and numbness into her fingers, sometimes her elbow will ache as well.She did start using cockup wrist splint particularly at night. She does feel it helps. She does a lot of typing. She has no sx on the R. She takes ibp prn which does help. Resting helps as well. She was waking up with numbness in her hand but the wrist splint has helped lessen this. Denies any neckpain, paresthesias in shoulder/shoulder pain. Denies any injuries or falls ROS: Review of Systems Constitutional: Negative for [...] Negative for arthralgias, back pain and myalgias. Left wrist pain and numbness Skin: Negative for color change and rash. Allergic/Immunologic: Negative for food allergies. Neurological: Negative for dizziness, syncope, weakness, light-headedness and headaches. Hematological: Does not bruise/bleed easily. Psychiatric/Behavioral: Negative for confusion, hallucinations and suicidal ideas. The patient is not nervous/anxious. PHYSICAL EXAM: Vitals: 09/15/21 1049 BP: 110/72 BP Location: Right arm Patient Position: Sitting Pulse: 101 Resp: 18 Temp: 36.8 ??C (98.3 ??F) TempSrc: Oral SpO2: 99% Weight: 88.5 kg (195 lb) Height: 165.1 cm (5' 5 ) Body mass index is 32.45 kg/m??. GENERAL: Patient is awake alert and [...] cyanosis noted. 2+ pulses in LE b/l. Strength 5/5 bilat UEs NEUROLOGIC: Gait was unremarkable. No focal neurologic deficits observed. PSYCH: Appropriate affect. Denies suicidal or homicidal ideation. 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 Cont adderall. Stable Carpal tunnel syndrome of left wrist (G56.02) - EMG/NCV -; Future Refer for NCS. May cont nsaids prn for flares, cock up wrist splint. Try to avoid exacerbating activities. JACQUELINE (generalized anxiety disorder) (F41.1) Stable. Not taking any meds at this time JULITO Salcedo documented in this encounter Plan of Treatment Not on file documented as of this encounter Visit Diagnoses Diagnosis Attention deficit disorder (ADD) without hyperactivity- Primary Carpal tunnel syndrome of left wrist JAQCUELINE (generalized anxiety disorder) Generalized anxiety disorder documented in this encounter Care Teams Spring Coiler Relationship Specialty Start Date End Date Willy Gant MD PCP - General Family Medicine 12/26/18 12/16/21 documented as of this encounter
--- OUTSIDE RECORDS SUMMARY | 2024-04-08 16:58 | XMS_ITS | Encounter Summary ---
Author Organization [facility] Address [address] 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 Gender Identity Female 06/18/2020 3:18 PM CDT Sexual Orientation Choose not to disclose 2020 3:18 PM CDT documented as of this encounter Plan of Treatment Not on file documented as of this encounter Procedures Procedure Name Priority Date/Time Associated Diagnosis Comments SCAN - LABS 04/07/2022 SCAN - LABS 04/07/2022 documented in this encounter Results * SCAN - LABS (04/07/2022) us Provider Scanning Final Result * SCAN - LABS (04/07/2022) us Provider Scanning Final Result documented in this encounter Visit Diagnoses Not on filedocumented in this encounter Care Teams Wind Turbine Design Engineer Relationship Specialty Start Date End Date Teresa Cadet PA PCP - General Family Medicine 12/17/21 10/03/22 documented as of this encounter
--- OUTSIDE RECORDS SUMMARY | 2024-04-08 16:59 | XMS_ITS | Encounter Summary ---
Author Organization [facility] Address [address] [facility] [address] [place] [address] Care Team Providers Care Chief Psychologist Name Role Phone Willy Gant MD Primary Care Provider [phone] Reason for Visit * Reason Comments ADD Encounter Details Date Type Department Care Team (Late st Contact Info) Description 06/19/2020 10:15 AM CDT Telemedicine [facility] Family Medicine [address] [place] [address] Teresa Cadet, JULITO [address] [address] Attention deficit disorder (ADD) without hyperactivity (Primary Dx); JACQUELINE (generalized anxiety disorder) Social History Tobacco Use Types Packs/Day Years Used Date Smoking Tobacco: Every Day E-cigarettes Smokeless Tobacco: Never Alcohol Use Standard Drinks/Week Comments Not Currently 0 (1 standard drink = 0.6 oz pur e alcohol) AUDIT-C Answer Date Recorded Q1: How often do you have a drink containing alc ohol? Monthly or less 06/19/2020 Q2: How many drinks containi ng alcohol do you have on a typical day when you are drinking? 1 or 2 06/19/2020 Q3: How often do you have si x or more drinks on one occasion? 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 Brand Name(s): Varnel There may be other brand names for this medicine. When This Medicine Should Not Be Used: This medicine is not right for everyone. Do not use it if you had an allergic reaction to lisdexamfetamine or to any product that contains amphetamine. How to Use This Medicine: Capsule, Chewable Tablet ?? Take your medicine as directed. Your dose may need to be changed several times to find what works best for you. ?? It is best to take this medicine in the morning. It may be hard for you to sleep if you take it in the afternoon or evening. ?? Capsule: ?? Swallow whole. Do not crush, divide, or chew it. ?? If you cannot swallow the capsule, you may open the capsule and mix the powder with water, yogurt, or orange juice. Use all of the powder from inside the capsule. Use a spoon to break up any clumps of powder. Eat or drink all of this mixture right away. Do not save any for later. ?? Chewable tablet: Chew thoroughly before swallowing. ?? This medicine should come with a Medication Guide. Ask your pharmacist for a copy if you do not have one. ?? Missed dose: Take a dose as soon as you remember. If it is almost time for your next dose, wait until then and take a regular dose. Do not take extra medicine to make up for a missed dose. ?? Store the medicine in a closed container at room temperature, away from heat, moisture, and direct light. Drugs and Foods to Avoid: Ask your doctor or pharmacist before using any other medicine, including dbug-hwf-rfruifk medicines, vitamins, and herbal products. ?? Do not use this medicine if you are using or have used an MAO inhibitor within the past 14 days. ?? Some medicines can affect how lisdexamfetamine works. Tell your doctor if you are using any of the following: ?? Acetazolamide, ammonium chloride, ascorbic acid, buspirone, fentanyl, hydrochlorothiazide, lithium, methenamine salts, quinidine, ritonavir, sodium acid phosphate, sodium bicarbonate, Kobi's wort, tramadol, or tryptophan supplements ?? Medicine to treat depression (including desipramine, fluoxetine, paroxetine, protriptyline) ?? Triptan medicine to treat migraine headaches . Warnings While Using This Medicine: ?? Tell your doctor if you are or , or if you have kidney disease, heart disease, heart rhythm problems, high blood pressure, blood circulation problems, or a history of heart attack or stroke. Tell your doctor if you or anyone in your family has a history of depression, bipolar disorder, suicide, or mental health problems, or you have a history of drug or alcohol addiction. ?? This medicine may cause the following problems: ?? Serious heart or blood vessel problems, such as heart attack or stroke ?? Unusual changes in mood or behavior ?? Slow growth in children ?? Raynaud phenomenon (problem with the blood circulation in your fingers or toes) ?? Serotonin syndrome (when used with certain medicines) ?? This medicine can be habit-forming. Do not use more than your prescribed dose. Call your doctor if you think your medicine is not working. ?? This medicine may make you dizzy. Do not drive or do anything that could be dangerous until you know how this medicine affects you. ?? Your doctor will check your progress and the effects of this medicine at regular visits. Keep all appointments. ?? Keep all medicine out of the reach of children. Never share your medicine with anyone. Possible Side Effects While Using This Medicine: Call your doctor right away if you notice any of these side effects: ?? Allergic reaction: Itching or hives, swelling in your face or hands, swelling or tingling in your mouth or throat, chest tightness, trouble breathing ?? Anxiety, restlessness, fever, sweating, muscle spasms, twitching, nausea, vomiting, diarrhea, seeing or hearing things that are not there ?? Blistering, peeling, red skin rash ?? Chest pain that may spread, trouble breathing, unusual sweating, fainting ?? Extreme energy, mood or mental changes, confusion, agitation, trouble sleeping, unusual behavior ?? Fast, pounding, or uneven heartbeat ?? Numbness or weakness on one side of your body, sudden or severe headache, problems with vision, speech, or walking ?? Unexplained sores, coldness, numbness, or color changes on your fingers or toes If you notice these less serious side effects, talk with your doctor: ?? Dry mouth ?? Loss of appetite, weight loss (in children), stomach pain If you notice other side effects that you think are caused by this medicine, tell your doctor. Call your doctor for medical advice about side effects. You may report side effects to FDA at 2-348-YNE-6417 ?? 2017 [employer] Information is for End User's use only and may not be sold, redistributed or otherwise used for commercial purposes. The above information is an manager paid only. It is not intended as medical advice for individual conditions or treatments. Talk to your doctor, nurse or pharmacist before following any medical regimen to see if it is safe and effective for you. documented in this encounter Ordered Prescriptions Prescription Sig Dispense Quantity Refills Last Filled Start Date End Date lisdexamfetamine (VYVANSE) 30 mg capsuleIndications: Attention deficit disorder (ADD) without hyperactivity Take 1 capsule (30 mg total) by mouth every morning 30 capsule 06/19/2020 documented in this encounter Progress Notes * Teresa Cadet PA - 06/19/2020 10:15 AM CDT Images from the original note were not included. This was a telemedicine visit with Alise dooley which took place via real-time video connection with etaskr. During the visit, I was located in the office and the patient was located at home in the state of [place]. The patient visit started at 1010 and ended at 1026. The patient has been informed that the visit may not be secure and acknowledged the information. I have explained the option of participating in a telephone or video visit during the COVID-19 public [facility] emergency to the patient. After being given an opportunity to ask questions about and discuss this type of visit, the patient verbally consented to proceeding with the telephone/video visit.The patient understands that this service replaces an office visit and they may be billed and/or responsible for any applicable copayments. CHIEF COMPLAINT: Chief Complaint Patient presents with ??? ADD SUBJECTIVE: She is a 29 y.o. female who presents today via telemedicine using audio/video communication for f/uon ADD. States she's been doing really well on the medication. She is tolerating well and denies any cp, sob, palpitations. She feels it's really helped her mood overall and her focus on her homeworkand classes. She is sleeping better. She has back off caffeine and denies tachycardia or palpitations. States she feels her HR is back to normal and is no longer getting notifications of high heart rate on her apple watch. She does feel she could benefit from a higher dose. States she feels her focus could still be improved overall. She feels her anxiety is well controlled at this time. States she's hardly ever taking the buspar. She hasn't felt she's required it often. States occasionally she feels anxious at night and will take one before bed but otherwise she feels good overall. ROS: Review of Systems Constitutional: Negative for [...] suicidal ideas. The patient is not nervous/anxious. ADD Physical Exam Constitutional: She is oriented to person, place, and time and well-developed, well-nourished, and in no distress. HENT: Head: Normocephalic and atraumatic. Eyes: EOM are normal. Pulmonary/Chest: Effort normal. No respiratory distress. Neurological: She is alert and oriented to person, place, and time. Psychiatric: Affect normal. Assessment/Plan Diagnoses and all orders for this visit: Attention deficit disorder (ADD) without hyperactivity (F98.8) (Primary) - lisdexamfetamine (VYVANSE) 30 mg capsule; Take 1 capsule (30 mg total) by mouth every morning Will increase to 30 mg. Pt tolerating well. Avoid taking with caffeine. RTC if not tolerating med, new concerns arise. Pt agreeable to plan JACQUELINE (generalized anxiety disorder) (F41.1) cont buspar prn. Pt using very sparingly. Cont buspar prn. JULITO Salcedo documented in this encounter Plan of Treatment Not on file documented as of this encounter Visit Diagnoses Diagnosis Attention deficit disorder (ADD) without hyperactivity- Primary JACQUELINE (generalized anxiety disorder) Generalized anxiety disorder documented in this encounter Discontinued Medications Medication Sig Discontinue Reason Start Date End Da te lisdexamfetamine (VYVANSE) 20 mg capsuleIndications:Attent ion deficit disorder (ADD) without hyperactivity Take 1 capsule (20 mg total) by mouth every morning Reorder 06/18/2020 06/19/2020 documented as of this encounter Care Teams Chief Psychologist Relationship Specialty Start Date End Date Willy Gant MD PCP - General Family Medicine 12/26/18 12/16/21 documented as of this encounter
--- OUTSIDE RECORDS SUMMARY | 2024-04-08 16:59 | XMS_ITS | Encounter Summary ---
Author Organization [facility] Facility Care Team Providers Care House Nurse Name Role Phone Unavailable Primary Care Provider Unavailabl e Encounter Details Date Type Department Care Team (Late st Contact Info) Description 06/11/2006 2:53 PM BINDERY HELPER - 06/11/2006 6:40 PM BINDERY HELPER Hospital Encounter [facility] [place] [address] [place] [address] Social History Tobacco Use Types Packs/Day Years Used Date Smoking Tobacco: Never Assessed Comments Unknown Sex and Gender Information Value Date Recorded Sex Assigned at Not on file 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
--- OUTSIDE RECORDS SUMMARY | 2024-04-08 16:59 | XMS_ITS | Encounter Summary ---
Author Organization [facility] Care Team Providers Care Manager Women Name Role Phone Willy Gant MD Primary Care Provider [phone] Encounter Details Date Type Department Care Team (Latest Contact Info) Description 03/14/2019 Travel Social History Tobacco Use Types Packs/Day Years Used Date Smoking Tobacco: Every Day E-cigarettes Smokeless Tobacco: Never Alcohol Use Standard Drinks/Week Comments Not Currently 0 (1 standard drink = 0.6 oz pur e alcohol) Comments Unknown Sex and Gender Information Value Date Recorded Sex Assigned at Not on file 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
--- OUTSIDE RECORDS SUMMARY | 2024-04-08 16:59 | XMS_ITS | Encounter Summary ---
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
--- OUTSIDE RECORDS SUMMARY | 2024-04-08 16:59 | XMS_ITS | Encounter Summary ---
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) Social History Tobacco Use Types Packs/Day Years Used Date Smoking Tobacco: Every Day E-cigarettes Smokeless Tobacco: Never Alcohol Use Standard Drinks/Week Comments Not Currently 0 (1 standard drink = 0.6 oz pur e alcohol) PHQ-2 Answer Date Recorded PHQ-2 Score 0 05/03/2019 Comments Unknown Sex and Gender Information Value Date Recorded Sex Assigned at Not on file 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 Brand Name(s): Radha There may be other brand names for this medicine. When This Medicine Should Not Be Used: This medicine is not right for everyone. Do not use it if you had an allergic reaction to atomoxetine, or if you have narrow-angle glaucoma, severe heart disease, or pheochromocytoma. How to Use This Medicine: Capsule ?? Take your medicine as directed. Your dose may need to be changed several times to find what works best for you. ?? This medicine should come with a Medication Guide. Ask your pharmacist for a copy if you do not have one. ?? Swallow the capsule whole. Do not crush, break, chew, or open it. ?? Do not touch a broken or opened capsule. Wash your hands with water if you touch an opened capsule. If this medicine gets in your eyes, rinse them with water and call your doctor right away. ?? Missed dose: Take a dose as [...] pharmacist before using any other medicine, including dxtv-ioq-alboqni medicines, vitamins, and herbal products. ?? Do not use this medicine at the same time or within 14 days of taking an MAOI, such as isocarboxazid, phenelzine, selegiline, or tranylcypromine. ?? Some medicines can affect how atomoxetine works. Tell your doctor if you are taking any of the following: ?? Asthma medicine, such as albuterol ?? Depression medicine, such as fluoxetine, paroxetine ?? Dobutamine ?? Dopamine ?? Heart rhythm medicine, such as quinidine Warnings While Using This Medicine: ?? Tell your doctor if you are or , or if you have liver, kidney, heart, or blood vessel disease, heart rhythm problems, high or low blood pressure, or problems with urination. ?? Tell your doctor if you have a history of emotional problems, such as depression. For some children, teenagers, and young adults, this medicine may increase mental or emotional problems. This may lead to thoughts of suicide and violence. Talk with your doctor right away if you have any thoughts or behavior changes that concern you. Tell your doctor if you or anyone in your family has a historyof bipolar disorder or suicide attempts. ?? This medicine may cause the following: ?? Liver problems ?? Heart or blood vessel problems ?? Painful or prolonged erection of the penis ?? Slowed growth in children ?? This medicine may make you dizzy or drowsy. Do not drive or doing anything that could be dangerous until you know how this medicine affects you. ?? Your doctor will do lab tests at regular visits to check on the effects of this medicine. Keep all appointments. ?? Keep all medicine [...] or throat, chest tightness, trouble breathing ?? Chest pain, trouble breathing ?? Dark urine or pale stools, nausea, vomiting, loss of appetite, stomach pain, yellow skin or eyes ?? Decrease in how much or how often you urinate ?? Erection of the penis that is painful or lasts longer than 4 hours ?? Fast, pounding, uneven heartbeat ?? Headache, lightheadedness, dizziness, fainting ?? Mood changes, aggressiveness, irritability, depression ?? Seeing, hearing, or feeling things that are not there, believing things that are not true ?? Seizures or tremors ?? Thoughts or plans of suicide ?? Weight changes, slowed growth (children) If you notice these less serious side effects, talk with your doctor: ?? Dry mouth, constipation, heartburn, stomach pain or upset ?? Loss of interest in sex, trouble having sex ?? Unusual drowsiness, tiredness, or insomnia If you notice other side effects that you think are caused by this medicine, tell your doctor. Call your doctor for medical advice about side effects. You may report side effects to FDA at 0-995-RBS-9668 ?? 2017 [employer] Information is for End User's use only and may not be sold, redistributed or otherwise used for commercial purposes. The above information is an community aide only. It is not intended as medical advice for individual conditions or treatments. Talk to your doctor, nurse or pharmacist before following any medical regimen to see if it is safe and effective for you. documented in this encounter Ordered Prescriptions Prescription Sig Dispense Quantity Refills Last Filled Start Date End Date atomoxetine (STRATTERA) 40 mg capsuleIndications: Attention-Deficit Hyperactivity Disorder Take 1 capsule (40 mg total) by mouth daily 30 capsule 12/11/2019 0 documented in this encounter Progress Notes * Teresa Cadet PA - 12/11/2019 1:00 PM CDT Images from the original note were not included. CHIEF COMPLAINT: Chief Complaint Patient presents with ??? ADD SUBJECTIVE: She is a 29 y.o. female who presents today via telemedicine using audio/video communication or f/u on ADD. States she's doing well on strattera and is tolerating well. She does note originally it made her tired so she started taking at night but then started keeping her awake so she switched to theam and is doing well now. States it does help her to focus and complete tasks, especially with online classes. She does feel like it wears off in the evening when she's trying to do her homework. Shewould like to increase the dose. She has previously been on about 40 mg in the past and done well. She has no other new concerns at this time. ROS: Review of Systems Constitutional: Negative for [...] suicidal ideas. The patient is not nervous/anxious. F/u ADD Physical Exam Constitutional: She is oriented [...] disorder (ADD) without hyperactivity (F98.8) (Primary) - atomoxetine (STRATTERA) 40 mg capsule; Take 1 capsule (40 mg total) by mouth daily Will increase strattera to 40 mg daily. Advised to call if sx not improving, not tolerating med. Will f/u in 8 wks otherwise. Pt agreeable to plan This was a telemedicine visit with Alise dooley which took place via real-time video connection with [employer]. During the visit, I was located in the office and the patient was located at home. The patient visit started at 1312 and ended at 1327. The patient has been informed that the visit may not be secure and acknowledged the information. I have explained the option of participating in a telephone or video visit during the [facility] emergency to the patient. After being given an opportunity to ask questions about and discuss this type of visit, the patient verbally consented to proceeding with the telephone/video visit.The patient understands that this service replaces an office visit and they may be billed and/or responsible for any applicable copayments. JULITO Salcedo documented in this encounter Plan of Treatment Not on file documented as of this encounter Visit Diagnoses Diagnosis Attention deficit disorder (ADD) without hyperactivity- Primary documented in this encounter Discontinued Medications Medication Sig Discontinue Reason Start Date End Da te atomoxetine (STRATTERA) 25 mg capsuleIndications:Attent ion-Deficit Hyperactivity Disorder Take 1 capsule (25 mg total) by mouth daily Reorder 11/14/2019 12/11/2019 documented as of this encounter Care Teams Journeyman Power Plant Operator Relationship Specialty Start Date End Date Stalin, Willy P., MD PCP - General Family Medicine 12/26/18 12/16/21 documented as of this encounter
--- OUTSIDE RECORDS SUMMARY | 2024-04-08 16:59 | XMS_ITS | Encounter Summary ---
Author Organization [facility] Care Team Providers Care Banquet Captain Name Role Phone Willy Gant MD Primary Care Provider [phone] Encounter Details Date Type Department Care Team (Latest Contact Info) Description 05/21/2019 Travel Social History Tobacco Use Types Packs/Day Years Used Date Smoking Tobacco: Every Day E-cigarettes Smokeless Tobacco: Never Alcohol Use Standard Drinks/Week Comments Not Currently 0 (1 standard drink = 0.6 oz pur e alcohol) PHQ-2 Answer Date Recorded PHQ-2 Score 0 05/03/2019 Comments Unknown Sex and Gender Information Value Date Recorded Sex Assigned at Not on file 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
--- OUTSIDE RECORDS SUMMARY | 2024-04-08 16:59 | XMS_ITS | Encounter Summary ---
Author Organization [facility] Address [address] [place] [id number] Care Team Providers Care System Support Administrator Name Role Phone Willy Gant MD Primary Care Provider [phone] Reason for Visit * Reason Comments ADD bad mental state sin ce medication changed Encounter Details Date Type Department Care Team (Late st Contact Info) Description 01/10/2020 11:15 AM CDT Telemedicine [facility] Family Medicine [address] [place] [address] Teresa Cadet PA [address] [place] [id number] Attention deficit disorder (ADD) without hyperactivity (Primary [...] on file 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 CHIEF COMPLAINT: Chief Complaint Patient presents with ??? ADD bad mental state since medication changed SUBJECTIVE: She is a 29 y.o. female who presents today via telemedicine using audio/video communication for f/uon ADD. She says she's been experiencing increase in lack of motivation, anxiety and slightly more depressed since she started taking strattera, especially with increase in strattera over the past week. States she's been getting anxious about her mortality recently. She was not experiencing this prior to the increase of strattera. She also doesn't have as much motivation to do her tasks and has been napping more as well. Denies suicidal thoughts. She did not feel the 25 mg dose helped her focusas much. She was experiencing similar sx on the lower dose as well, just not as severe. She has been experiencing a lot of life changes recently. ROS: Review of Systems Constitutional: Negative for [...] suicidal ideas. The patient is not nervous/anxious. Lack of motivation, anxiety, depression since med increased Physical Exam Constitutional: She is oriented to person, place, and time and well-developed, well-nourished, and in no distress. HENT: Head: Normocephalic and atraumatic. Eyes: EOM are normal. Pulmonary/Chest: Effort normal. No respiratory distress. Neurological: She is alert and oriented to person, place, and time. Psychiatric: Affect normal. Assessment/Plan Diagnoses and all orders for this visit: Attention deficit disorder (ADD) without hyperactivity (F98.8) (Primary) Will discontinue Strattera. Will follow-up in 2 weeks. JACQUELINE (generalized anxiety disorder) (F41.1) Advised RTC/call sx worsen This was a telemedicine visit with Alise dooley which took place via real-time video connection with [employer]. During the visit, I was located in the office and the patient was located at home in the state of [place]. The patient visit started at 1226 and ended at 1240. The patient has been informed that the visit may not be secure and acknowledged the information. I have explained the option of participating in a telephone or video visit during the COVID-19 public health emergency to the patient. After being given [...] Start Date End Da te atomoxetine (STRATTERA) 40 mg capsuleIndications:Attent ion-Deficit Hyperactivity Disorder Take 1 capsule (40 mg total) by mouth daily 12/11/2019 01/10/2020 documented as of this encounter Care Teams System Support Administrator Relationship Specialty Start Date End Date Willy Gant MD PCP - General Family Medicine 12/26/18 12/16/21 documented as of this encounter
--- OUTSIDE RECORDS SUMMARY | 2024-04-08 16:59 | XMS_ITS | Encounter Summary ---
Author Organization [facility] Address [address] [place] [address] Care Team Providers Care Batch And Furnace Manager Name Role Phone Willy Gant MD Primary Care Provider [phone] Reason for Visit * Reason Comments Migraine Anxiety panic attacks Encounter Details Date Type Department Care Team (Late st Contact Info) Description 01/08/2019 8:45 AM CDT Office Visit [facility] Family Medicine [address] [place] [address] Teresa Cadet, JULITO [address] [place] [id number] JACQUELINE (generalized anxiety disorder) (Primary Dx); Frequent headaches Social History Tobacco Use Types Packs/Day Years Used Date Smoking Tobacco: Every Day E-cigarettes Smokeless Tobacco: Never Alcohol Use Standard Drinks/Week Comments Not Currently 0 (1 standard drink = 0.6 oz pur e alcohol) Comments Unknown Sex and Gender Information Value Date Recorded Sex Assigned at Not on file 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 Gender Identity Female 06/18/2020 3:18 PM CDT Sexual Orientation Choose not to disclose 2020 3:18 PM CDT documented as of this encounter Last Filed Vital Signs Vital Sign Reading Time Taken Comments Blood Pressure 120/70 01/08/2019 8:58 AM CDT Pulse 78 01/08/2019 8:58 AM CDT Temperature 37.1 ??C (98.7 ??F) 01/08/2019 8:58 AM CD T Respiratory Rate - - Oxygen Saturation - - Inhaled Oxygen Concentration - - Weight - - Height - - Body Mass Index - - documented in this encounter Patient Instructions * Patient Instructions* Teresa Cadet PA - 01/08/2019 8:45 AM CDT Patient Education Sertraline (By mouth) Sertraline (OZK-fye-ayey) Treats depression, obsessive-compulsive disorder (OCD), posttraumatic stress disorder (PTSD), premenstrual dysphoric disorder (PMDD), social anxiety disorder, and panic disorder. This medicine is an SSRI. Brand Name(s): Zoloft There may be other brand names for this medicine. When This Medicine Should Not Be Used: This medicine is not right for everyone. Do not use it if you had an allergic reaction to sertraline. How to Use This Medicine: Liquid, Tablet ?? Take your medicine as directed. Your dose may need to be changed several times to find what works best for you. You may need to take it for a few weeks or months before you feel better. ?? Oral liquid: Use the dropper provided to remove the medicine and mix it with 1/2 cup (4 ounces) of water, shelly mary, lemon-nightmute soda, lemonade, or orange juice. Drink the mixture right away. It is normal for it to look a bit hazy. ?? This medicine should come with a [...] pharmacist before using any other medicine, including wlrp-mba-mpnduyb medicines, vitamins, and herbal products. ?? Do not use this medicine together with pimozide. Do not use this medicine and an MAO inhibitor (MAOI) within 14 days of each other. Do not use the oral liquid form of sertraline if you are also using disulfiram. ?? Some medicines can affect how sertraline works. Tell your doctor if you are using the following: ?? Buspirone, cimetidine, cisapride, diazepam, digitoxin, fentanyl, flecainide, lithium, phenytoin,propafenone, Kobi's wort, tramadol, tryptophan supplements, or valproate ?? A blood thinner (such as warfarin), a diuretic (water pill), an NSAID pain or arthritis medicine(such as aspirin, diclofenac, ibuprofen), a tricyclic antidepressant, a triptan medicine for migraine headaches ?? Do not drink alcohol while you are using this medicine. Warnings While Using This Medicine: ?? Tell your doctor if you are or , or if you have liver disease, bleeding problems, glaucoma, heart disease, or a seizure disorder. ?? For some children, teenagers, and young adults, this medicine may increase mental or emotional problems. This may lead to thoughts of suicide and violence. Talk with your doctor right away if you have any thoughts or behavior changes that concern you. Tell your doctor if you or anyone in your family has a history of bipolar disorder or suicide attempts. ?? This medicine may cause the following problems: ?? Serotonin syndrome (when taken with certain medicines) ?? Low sodium levels (more common in elderly patients and those who take diuretics or become dehydrated) ?? Tell your doctor if you are sensitive to latex, because the oral liquid comes with a latex rubber dropper. ?? This medicine may make you dizzy or drowsy. Do not drive or do anything that could be dangerous until you know how this medicine affects you. ?? Do not stop using this medicine suddenly. Your doctor will need to slowly decrease your dose before you stop it completely. ?? Your doctor will check your progress [...] chest tightness, trouble breathing ?? Anxiety, restlessness, fast heartbeat, fever, sweating, muscle spasms, twitching, nausea, vomiting, diarrhea, seeing or hearing things that are not there ?? Blistering, peeling, or red skin rash ?? Confusion, weakness, and muscle twitching ?? Eye pain, vision changes, seeing halos around lights ?? Feeling more excited or energetic than usual ?? Thoughts of hurting yourself or others, unusual behavior ?? Unusual bleeding or bruising If you notice these less serious side effects, talk with your doctor: ?? Dry mouth ?? Loss of appetite, weight loss ?? Mild diarrhea, constipation, nausea, vomiting ?? Sexual problems ?? Sleepiness, or trouble sleeping If you notice other side effects that you think are caused by this medicine, tell your doctor. Call your doctor for medical advice about side effects. You may report side effects to FDA at 0-948-FMF-0298 ?? 2017 [employer] Information is for End User's use only and may not be sold, redistributed or otherwise used for commercial purposes. The above information is an rehab aid only. It is not intended as medical [...] a day as needed (anxiety) 60 tablet 1 01/08/2019 03/12/2019 sertraline (ZOLOFT) 25 mg tabletIndications: JACQUELINE (generalized anxiety disorder) Take 1 tablet (25 mg total) by mouth daily 30 tablet 1 01/08/2019 02/12/2019 documented in this encounter Progress Notes * Teresa Cadet PA - 01/08/2019 8:45 AM CDT Images from the original note were not included. CHIEF COMPLAINT: Chief Complaint Patient presents with ??? Migraine ??? Anxiety panic attacks SUBJECTIVE: She is a 28 y.o. female who presents today with c/o anxiety. She says she's struggled with anxiety since her teenage years. She notes a few years ago, her child's father and she found himdeceased so she struggled emotionally through that and went through counseling and states she's done well since then up until the past few weeks. States she feels anxious 25/10. States she's experiencing almost daily panic attacks, mult times daily. She says she gets emotional and cries easily. She notes traffic and driving in car makes her anxious, she's anxious being in the house at night. States she thinks this stems from her PTSD from her child's father's passing. She was seeing child psychia trist in her teenage yrs and was tried on effexor, prozac, seroquel in the past and did not tolerate well. She denies thoughts of self harm. She does note she was experiencing headache daily but states this has improved since she started wearing her eye glasses daily. 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 She is planning to see territory manager general sales next month when she gets new insurance. ROS: Review of Systems Constitutional: Negative for appetite change and fever. HENT: Negative for ear pain, rhinorrhea and trouble swallowing. Eyes: Negative for pain and visual disturbance. Respiratory: Negative for cough, chest tightness and shortness of breath. Cardiovascular: Negative for chest pain and leg swelling. Gastrointestinal: Negative for abdominal pain, blood in stool, diarrhea, nausea and vomiting. Genitourinary: Negative for difficulty urinating, dysuria and frequency. Musculoskeletal: Negative for arthralgias, back pain and myalgias. Skin: Negative for color change and rash. Neurological: Positive for headaches (improved). Negative for dizziness, syncope, weakness and light-headedness. Hematological: Does not bruise/bleed easily. Psychiatric/Behavioral: Negative for confusion, hallucinations and suicidal ideas. The patient is nervous/anxious. PHYSICAL EXAM: Vitals: 01/08/19 0858 BP: 120/70 BP Location: Left arm Patient Position: Sitting Pulse: 78 Temp: 37.1 ??C (98.7 ??F) There is no height or weight on file to calculate BMI. GENERAL: Patient is awake alert and oriented [...] Diagnoses and all orders for this visit: JACQUELINE (generalized anxiety disorder) (F41.1) (Primary) - sertraline (ZOLOFT) 25 mg tablet; Take 1 tablet (25 mg total) by mouth daily - busPIRone (BUSPAR) 10 mg tablet; Take 1 tablet (10 mg total) by mouth 2 (two) times a day as needed (anxiety) Discussed medication options with patient. Will start Zoloft. We discussed possible side effects ofmedication. Will follow up in 4 weeks to assess her progress. Advised to RTC/call if not toleratingmedication, sx worsen, new concerns arise. Will also start BuSpar to use as needed. Advised to use s paringly we discussed possible side effects medication. Patient was overall agreeable and verbalized understanding to plan. Will follow up again in 4 weeks unless she needs us sooner Frequent headaches (R51) Resolved and improved at this time. Patient would like to see how she feels after starting medications for anxiety and seeking evaluation with territory manager general sales. Advised RTC/call should sx worsen or new concerns arise. Discussed ER precautions patient she was agreeable to this plan. Visit Orders: No orders of the defined types were placed in this encounter. 1. The patient indicates understanding of these issues and agrees with the plan. 2. The patient is given an After Visit Summary sheet that lists all of their medications with directions, their allergies, orders placed during this encounter, immunization dates, and follow- up instructions. 3. I reviewed the patient's medical information and medical history 4. I reconciled the patient's medication list and prepared and supplied needed refills. 5. I have reviewed the past medical, family, and social history sections including the medications and allergies listed in the above medical record documented in this encounter Plan of Treatment Not on file documented as of this encounter Visit Diagnoses Diagnosis JACQUELINE (generalized anxiety disorder)- Primary Generalized anxiety disorder Frequent headaches documented in this encounter Care Teams Batch And Furnace Manager Relationship Specialty Start Date End Date Willy Gant MD PCP - General Family Medicine 12/26/18 12/16/21 documented as of this encounter
--- OUTSIDE RECORDS SUMMARY | 2024-04-08 16:59 | XMS_ITS | Encounter Summary ---
Author Organization [facility] Healthcare Address [address] [place] [address] Care Team Providers Care Immunologist Name Role Phone Unavailable Primary Care Provider Unavailabl e Encounter Details Date Type Department Care Team (Late st Contact Info) Description 09/22/2010 1:25 AM CDT - 09/22/2010 3:22 AM CDT Hospital Encounter [facility] Reji Childs, DO [address] [place] [phone] Convulsions (HCC) Social History Tobacco Use Types Packs/Day Years Used Date Smoking Tobacco: Never Assessed Comments Unknown Sex and Gender Information Value Date Recorded Sex Assigned at Not on file Legal Sex Female 6:49 PM NURSING STAFF DEVELOPMENT COORDINATOR Gender Identity Female 06/18/2020 3:18 PM CDT Sexual Orientation Choose not to disclose 2020 3:18 PM CDT documented as of this encounter Plan of Treatment Not on file documented as of this encounter Visit Diagnoses Diagnosis Convulsions (HCC) Other convulsions documented in this encounter
--- OUTSIDE RECORDS SUMMARY | 2024-04-08 16:59 | XMS_ITS | Encounter Summary ---
Author Organization [facility] Address [address] [place] [address] Care Team Providers Care Supervisor Filter Assembly Name Role Phone Willy Gant MD Primary Care Provider [phone] Encounter Details Date Type Department Care Team (Late st Contact Info) Description 02/20/2020 Telephone [facility] Family Medicine [address] [place] [address] Willy Gant MD [address] [facility] [address] [place] [address] Social History Tobacco Use Types Packs/Day Years Used Date Smoking Tobacco: Every Day E-cigarettes Smokeless Tobacco: Never Alcohol Use Standard Drinks/Week Comments Not Currently 0 (1 standard drink = 0.6 oz pur e alcohol) PHQ-2 Answer Date Recorded PHQ-2 Total Score (If total score is 3 or more points, staff should administer the PHQ-9) 0 01/24/2020 Comments Unknown Sex and Gender Information Value Date Recorded Sex Assigned at Not on file Legal Sex Female 6:49 PM DIVIDING MACHINE OPERATOR HELPER Gender Identity Female 06/18/2020 3:18 PM CDT Sexual Orientation Choose not to disclose 2020 3:18 PM CDT documented as of this encounter Miscellaneous Notes * Telephone Encounter - Teresa Cadet PA - 02/20/2020 11:59 AM DIVIDING MACHINE OPERATOR HELPER Ok sounds good DING MACHINE OPERATOR HELPER * Telephone Encounter - Sandrine Tucker - 02/20/2020 11:51 AM CST I just went ahead and made her a zoom appt for this afternoon. DING MACHINE OPERATOR HELPER * Telephone Encounter - Sandrine Tucker - 02/20/2020 11:49 AM CST She said none of those symptoms. DING MACHINE OPERATOR HELPER * Telephone Encounter - Teresa Cadet PA - 02/20/2020 11:05 AM DIVIDING MACHINE OPERATOR HELPER I would have her make appt to discuss because if heart is that high we either need to decrease doseor stop the med. Is she experiencing any cp, sob, palpitations? DING MACHINE OPERATOR HELPER * Telephone Encounter - Sandrine Tucker - 02/20/2020 10:39 AM CST Update on New Med, Heart rate is elevated, she has an apple watch, 110-130. She feels fine with new med, her B/P is fine. She was just worried about the heart rate. [phone] She only has a week left, she was asking if she needs to be seen virtually or can you fill this again. lisdexamfetamine (VYVANSE) 20 mg capsule DING MACHINE OPERATOR HELPER documented in this encounter Plan of Treatment Not on file documented as of this encounter Visit Diagnoses Not on filedocumented in this encounter Care Teams Supervisor Filter Assembly Relationship Specialty Start Date End Date Willy Gant MD PCP - General Family Medicine 12/26/18 12/16/21 documented as of this encounter
--- OUTSIDE RECORDS SUMMARY | 2024-04-08 16:59 | XMS_ITS | Encounter Summary ---
Author Organization [facility] Address [address] [place] [address] Care Team Providers Care Brand Communications Manager Name Role Phone Willy Gant MD Primary Care Provider [phone] Reason for Visit * Reason Comments Anxiety/Depression ADD Encounter Details Date Type Department Care Team (Late st Contact Info) Description 08/14/2020 10:00 AM CDT Telemedicine [facility] Family Medicine [address] [place] [address] Teresa Cadet, JULITO [address] [place] [phone] Attention deficit disorder (ADD) without hyperactivity (Primary [...] drink containing alc ohol? Monthly or less 08/14/2020 Q2: How many drinks containi ng alcohol do you have on a typical day when you are drinking? 1 or 2 08/14/2020 Q3: How often do you have si x or more drinks on one occasion? Less than monthly 08/14/2020 PHQ-2 Answer Date Recorded PHQ-2 Total Score (If total score is 3 or more points, staff should administer the PHQ-9) 0 08/14/2020 Comments Unknown Sex and Gender Information Value Date Recorded Sex Assigned at Not on file Legal Sex Female 6:49 PM TRANSFER TABLE OPERATOR Gender Identity Female 06/18/2020 3:18 PM CDT Sexual Orientation Choose not to disclose 2020 3:18 PM CDT documented as of this encounter Progress Notes * Teresa Cadet PA - 08/14/2020 10:00 AM CDT Images from the original note were not included. This was a telemedicine visit with Alise dooley which took place via real-time video connection with [employer]. During the visit, I was located in the office and the patient was located at home in the state of [place]. The patient visit started at 1050 and ended at 1101. The patient has been informed that the [...] COMPLAINT: Chief Complaint Patient presents with ??? Anxiety/Depression ??? ADD SUBJECTIVE: She is a 29 y.o. female who presents today via telemedicine using audio/video communication for f/uon ADD, anxiety/depression. She says she's doing well on current med regimen. States the vyvanse isworking well for her and working to help her focus and complete tasks and focus on her classes and tests/homework. She feels her anxiety has been much improved on the vyvanse since she is focusing better and more organized. She starts summer classes in 1 wk. She is tolerating vyvanse well without se's, including cp, sob, palpitations. She feels it curbs her appetite but otherwise has no SE's. States she's not had to use buspar in several mos. She feels good overall. She has no new concerns at this time. ROS: Review [...] suicidal ideas. The patient is not nervous/anxious. 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 Stable. Pt will come for appt on Tuesday for in office visit to check bp and HR JACQUELINE (generalized anxiety disorder) (F41.1) stable. Cont buspar prn. JULITO Salcedo documented in this encounter Plan of Treatment Not on file documented as of this encounter Visit Diagnoses Diagnosis Attention deficit disorder (ADD) without hyperactivity- Primary JACQUELINE (generalized anxiety disorder) Generalized anxiety disorder documented in this encounter Care Teams Brand Communications Manager Relationship Specialty Start Date End Date Willy Gant MD PCP - General Family Medicine 12/26/18 12/16/21 documented as of this encounter
--- OUTSIDE RECORDS SUMMARY | 2024-04-08 16:59 | XMS_ITS | Encounter Summary ---
Author Organization [facility] Address [address] [place] [address] Care Team Providers Care Geropsychologist Name Role Phone Willy Gant MD Primary Care Provider [phone] Reason for Visit * Reason Comments ADD going back to school Encounter Details Date Type Department Care Team (Late st Contact Info) Description 11/14/2019 1:15 PM CDT Telemedicine [facility] Family Medicine [address] [place] [address] [place] [address] [place] [phone] Attention deficit disorder (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 Brand Name(s): Sorinmaameshreya There may be other brand names for [...] pharmacist before using any other medicine, including lbai-[id number]-[id number] medicines, vitamins, and herbal products. ?? Do [...] may report side effects to FDA at 1-781-RGC-3321 ?? 2017 [employer] Information is for End User's use only and may not be sold, redistributed or otherwise used for commercial purposes. The above information is an director medicaid only. It is not intended as medical advice for individual conditions or treatments. Talk to your doctor, nurse or pharmacist before following any medical regimen to see if it is safe and effective for you. documented in this encounter Ordered Prescriptions Prescription Sig Dispense Quantity Refills Last Filled Start Date End Date atomoxetine (STRATTERA) 25 mg capsuleIndications: Attention-Deficit Hyperactivity Disorder Take 1 capsule (25 mg total) by mouth daily 30 capsule 11/14/2019 0 documented in this encounter Progress Notes * Teresa Cadet PA - 11/14/2019 1:15 PM CDT Images from the original note were not included. This was a telemedicine visit with Alise Augustine miah which took place via real-time video connection with [employer]. During the visit, I was located in the office and the patient was located at home. The patient visit started at 1343 and ended at 1357. The patient has been informed that the [...] Chief Complaint Patient presents with ??? ADD going back to school SUBJECTIVE: She is a 29 y.o. female who presents today via telemedicine using audio/video communication for f/uon ADD. She is starting school at [employer] for [employer] program. She did stop taking zoloft andbuspar during COVID pandemic. States a lot of her anxiety improved after she moved out of her boyfriend's and got out of that relationship. States this is the best she has felt in years. She's no longer experiencing panic attacks. She feels like she's doing well without meds. She would like to restart strattera at this time. States since she's starting classes again in the coming week, she needs something to help her focus given her hx of ADD. She has done well on strattera in the past and tolerated well. She tolerated without SE's. She's tried and failed concerta, ritalin and adderall in thepast and states she did not tolerate them well due to increase in her anxiety. She has no other newconcerns today ROS: Review of Systems Constitutional: Negative for [...] without hyperactivity (F98.8) (Primary) - atomoxetine (STRATTERA) 25 mg capsule; Take 1 capsule (25 mg total) by mouth daily Will start strattera. Pt has tolerated well previously. Will f/u in 4 wks. Advised to RTC/call sooner if not tolerating med, new concerns arise. Pt agreeable to plan JCAQUELINE (generalized anxiety disorder) (F41.1) Stable and controlled without meds JULITO Salcedo documented in this encounter Plan of Treatment Not on file documented as of this encounter Visit Diagnoses Diagnosis Attention deficit disorder (ADD) without hyperactivity- Primary JACQUELINE (generalized anxiety disorder) Generalized anxiety disorder documented in this encounter Discontinued Medications Medication Sig Discontinue Reason Start Date End Da te sertraline (ZOLOFT) 50 mg tabletIndications:JACQUELINE (generalized anxiety disorder) Take 1.5 tablets (75 mg total) by mouth daily 03/14/2019 11/14/2019 LORazepam (ATIVAN) 1 mg tabletIndications:JACQUELINE (generalized anxiety disorder) Take 1 tablet (1 mg total) by mouth daily as needed for anxiety 02/22/2019 11/14/2019 busPIRone (BUSPAR) 10 mg tabletIndications:Genera lized Anxiety Disorder Take 1 tablet (10 mg total) by mouth 2 (two) times a day as needed (anxiety) 03/12/2019 11/14/2019 documented as of this encounter Care Teams Geropsychologist Relationship Specialty Start Date End Date Willy Gant MD PCP - General Family Medicine 12/26/18 12/16/21 documented as of this encounter
--- OUTSIDE RECORDS SUMMARY | 2024-04-08 16:59 | XMS_ITS | Encounter Summary ---
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 Monthly or less 09/09/2020 Q2: How many drinks containi ng alcohol do you have on a typical day when you are drinking? 1 or 2 09/09/2020 Q3: How often do you have si x or more drinks on one occasion? Less than monthly 09/09/2020 PHQ-2 Answer Date Recorded PHQ-2 Total Score (If total score is 3 or more points, staff should administer the PHQ-9) 0 09/09/2020 Comments Unknown Sex and Gender Information Value Date Recorded Sex Assigned at Not on file Legal Sex Female 6:49 PM MANAGER BOOK Gender Identity Female 06/18/2020 3:18 PM CDT Sexual Orientation Choose not to disclose 2020 3:18 PM CDT documented as of this encounter Last Filed Vital Signs Vital Sign Reading Time Taken Comments Blood Pressure 120/80 09/09/2020 3:10 PM CDT Pulse 86 09/09/2020 3:10 PM CDT Temperature - - Respiratory Rate 18 09/09/2020 3:10 PM CDT Oxygen Saturation - - Inhaled Oxygen Concentration - - Weight 84.4 kg (186 lb) 09/09/2020 3:10 PM CDT Height 165.1 cm (5' 5 ) 09/09/2020 3:10 PM CDT Body Mass Index 30.95 09/09/2020 3:10 PM CDT documented in this encounter Progress Notes * Teresa Cadet PA - 09/09/2020 2:30 PM CDT Images from the original note were not included. CHIEF COMPLAINT: Chief Complaint Patient presents with ??? Follow-up ADHD f/u- improved with Vyvanse SUBJECTIVE: She is a 30 y.o. female who presents today for f/u on ADD and anxiety. States she is doing very well on current regimen of Vyvanse and BuSpar. States she does not take the BuSpar very often, usually only at nighttime when having trouble sleeping and feels anxious. She feels the Vyvanse is working very well for her. She is tolerating well without any side effects, including chest pain, SOB, heart palpitations. States helps her focus and complete tasks. She has no new concerns this time ROS: Review of Systems Constitutional: [...] patient is not nervous/anxious. PHYSICAL EXAM: Vitals: 09/09/20 1510 BP: 120/80 BP Location: Left arm Patient Position: Sitting Pulse: 86 Resp: 18 Weight: 84.4 kg (186 lb) Height: 165.1 cm (5' 5 ) Body mass index is 30.95 kg/m??. GENERAL: Patient is awake alert and oriented x3 in no acute distress. The patient is well-nourishedand well-developed and, in general, well-appearing. Patient is seated on the exam table. Patient ispleasant and cooperative with the interview and exam. SKIN: No rashes, scars, or moles noted. HEENT: Head is normocephalic and atraumatic. Tympanic membranes are clear bilaterally. NECK: No cervical lymphadenopathy noted. CHEST: No [...] (ADD) without hyperactivity (F98.8) (Primary) Stable. Continue Vyvanse. Cardiovascular exam within normal limits. JACQUELINE (generalized anxiety disorder) (F41.1) Stable. Continue BuSpar as needed JULITO Salcedo documented in this encounter Plan of Treatment Not on file documented as of this encounter Visit Diagnoses Diagnosis Attention deficit disorder (ADD) without hyperactivity- Primary JACQUELINE (generalized anxiety disorder) Generalized anxiety disorder documented in this encounter Care Teams Sustainability Coach Relationship Specialty Start Date End Date Willy Gant MD PCP - General Family Medicine 12/26/18 12/16/21 documented as of this encounter
--- OUTSIDE RECORDS SUMMARY | 2024-04-08 16:59 | XMS_ITS | Encounter Summary ---
Author Organization [facility] Address [address] [facility] [address] [place] [id number] Care Team Providers Care Tax Economist Name Role Phone Willy Gant MD Primary Care Provider [phone] Reason for Visit * Reason Comments Anxiety/Depression ADHD Encounter Details Date Type Department Care Team (Late st Contact Info) Description 02/20/2020 2:45 PM INTERNATIONAL SALES MANAGER Telemedicine [facility] Family Medicine [address] [place] [address] Teresa Cadet PA [address] [address] Attention deficit disorder (ADD) without hyperactivity (Primary [...] on file Legal Sex Female 6:49 PM INTERNATIONAL SALES MANAGER Gender Identity Female 06/18/2020 3:18 PM CDT Sexual Orientation Choose not to disclose 2020 3:18 PM CDT documented as of this encounter Progress Notes * Teresa Cadet PA - 02/20/2020 2:45 PM CST Images from the original note were not included. This was a telemedicine visit with Alise dooley which took place via real-time video connection with [employer]. During the visit, I was located in the office and the patient was located at home in the state of [place] . The patient visit started at 1511 and ended at 1529. The patient has been informed that the [...] Complaint Patient presents with ??? Anxiety/Depression ??? ADHD SUBJECTIVE: She is a 29 y.o. female who presents today via telemedicine using audio/video communication for f/uon ADD, anxiety. She says she's been monitoring her HR and bp at home. States she checked her bp onMonday with her mother's bp cuff and says her bp was 100/65 and HR was 100 at that time. States shehas noticed on her apple watch, however that her HR has been elevated since starting the vyvanse up to 130. States otherwise she really feels the vyvanse works well for her. She feels great on the med and feels it really helps her focus and complete tasks. Denies cp, sob, palpitations, sweating. She did stop drinking caffeine 2 dys ago. She says she's been exercising and hasn't been experiencing any sx of cp, sob, PAYAN with exercise. She feels great overall ROS: Review of Systems Constitutional: Negative for [...] suicidal ideas. The patient is not nervous/anxious. ADHD- Anxiety Physical Exam Constitutional: She is oriented to person, place, and time and well-developed, well-nourished, and in no distress. HENT: Head: Normocephalic and atraumatic. Eyes: EOM are normal. Pulmonary/Chest: Effort normal. No respiratory distress. Neurological: She is alert and oriented to person, place, and time. Psychiatric: Affect normal. 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 She denies any signs or sx of elevated heart rate, including, SOB or chest pain. Advised very strict ER precautions and to discontinue medication immediately if SOB or chest pain, heart palpitations, sweating, any new signs or sx occur.. Advised to avoid any stimulants, including caffeine. If heart rate consistently > 100, will discont inue or decrease Vyvanse to 10 mg. Advised to keep log and call us in 2 days. Patient verbalized understanding and agreeable to plan. Will follow-up in the office in 2 weeks. Unable to bring in for appointment as she is COVID pending at this time. 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
--- OUTSIDE RECORDS SUMMARY | 2024-04-08 16:59 | XMS_ITS | Encounter Summary ---
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 Gender Identity Female 06/18/2020 3:18 PM CDT Sexual Orientation Choose not to disclose 2020 3:18 PM CDT documented as of this encounter Last Filed Vital Signs Vital Sign Reading Time Taken Comments Blood Pressure 110/72 01/28/2020 9:57 AM CDT Pulse 104 01/28/2020 9:57 AM CDT Temperature 37.1 ??C (98.7 ??F) 01/28/2020 9:57 AM CD T Respiratory Rate 19 01/28/2020 9:57 AM CDT Oxygen Saturation 98% 01/28/2020 9:57 AM CDT Inhaled Oxygen Concentration - - Weight 92.5 kg (204 lb) 01/28/2020 9:57 AM CDT Height 165.1 cm (5' 5 ) 01/28/2020 9:57 AM CDT Body Mass Index 33.95 01/28/2020 9:57 AM CDT documented in this encounter Patient Instructions * Patient Instructions* Teresa Cadet PA - 01/28/2020 9:30 AM CDT Patient Education Amphetamine (By mouth) Treats attention deficit hyperactivity disorder (ADHD) and narcolepsy. Also helps with weight loss in obese patients. Brand Name(s): Adzenys XR ODT, Desoxyn, Dexedrine Spansule, Dexedrine Spansules, Didrex, Dyanavel XR, Evekeo, Regimex, Vyvanse, Zenzedi There may be other brand names for this medicine. When This Medicine Should Not Be Used: This medicine is not right for everyone. Do not use it if you had an allergic reaction to amphetamines or similar medicines, or if you have glaucoma, an overactive thyroid, or a history of drug addiction. How to Use This Medicine: Capsule, Long Acting Capsule, Liquid, Tablet, Long Acting Tablet, Long Acting Dissolving Tablet ?? Take your medicine as directed. Your dose may need to be changed several times to find what works best for you. ?? This medicine is used for different conditions and comes in different forms. Make sure you understand how to take your prescribed brand. ?? Extended-release capsule and tablet: Swallow the medicine whole. Do not crush, break, or chew it. ?? Extended-release disintegrating tablet: Make sure your hands are dry before you handle the disintegrating tablet. Peel back the foil from the blister pack, then remove the tablet. Do not push the tablet through the foil. Place the tablet in your mouth. After it has melted, swallow or take a drink of water. ?? Extended-release oral liquid: Measure the oral liquid medicine with a marked measuring spoon, oral syringe, or medicine cup. Shake the bottle just before each use. ?? This medicine should come with a [...] pharmacist before using any other medicine, including [id number] medicines, vitamins, and herbal products. ?? Do not use this medicine if you have used an MAO inhibitor (MAOI) in the past 14 days. ?? Some foods and medicines can affect how amphetamine works. Tell your doctor if you are using anyof the following: ?? Acetazolamide, ammonium chloride, ascorbic acid (vitamin C), buspirone, chlorpromazine, ethosuximide, fentanyl, guanethidine, haloperidol, lithium, meperidine, methenamine, methylphenidate, pemoline, phenobarbital, phenytoin, reserpine, sodium bicarbonate, Kobi's wort, tramadol, or tryptophansupplement ?? Blood pressure medicine ?? Cold or allergy medicine ?? Diuretic (water pill) ?? Medicine to treat depression (including desipramine, protriptyline) ?? Stomach medicine (including omeprazole) ?? Triptan medicine to treat migraine headaches ?? Do not drink alcohol while you are using this medicine. Warnings While Using This Medicine: ?? Tell your doctor if you are or , or if you have heart or blood vessel problems, including high blood pressure, heart rhythm problems, heart failure, a heart defect, or a history of heart attack or stroke. Tell your doctor if you have Tourette syndrome or a history of seizures, depression, bipolar disorder, or mental health problems. ?? This medicine may cause the following problems: ?? Sudden in people who have a heart defect ?? Serious heart or blood vessel problems, including heart attack and stroke ?? Unusual changes in behavior or moods ?? Slow growth in children ?? Peripheral vasculopathy (blood circulation problems) ?? Serotonin syndrome (when used with certain medicines) ?? This medicine may make you dizzy or drowsy. Do not drive or do anything else that could be dangerous until you know how this medicine affects you. ?? This medicine can be habit-forming. Do not use more than your prescribed dose. Call your doctor if you think your medicine is not working. ?? Weight loss treatment: This medicine often stops working after you have been taking it for a fewweeks. Do not take more than your doctor has prescribed, even if this happens. This medicine is only for short-term use. ?? Tell any doctor or dentist who treats you that you are using this medicine. This medicine may affect certain medical test results. ?? Do not stop using this medicine [...] hearing things that are not there ?? Chest pain, trouble breathing, fainting ?? Extreme energy or restlessness, confusion, agitation, unusual moods or behavior, trouble sleeping ?? Fast, pounding, or uneven heartbeat ?? Numbness or weakness in your arm or leg, or on one side of your body ?? Sores, coldness, numbness, or color changes on your fingers or toes, unexplained wounds on fingers or toes If you notice these less serious side effects, talk with your doctor: ?? Blurred vision ?? Diarrhea, loss of appetite, stomach pain ?? Dry mouth ?? Headache If you notice other side effects that you think are caused by this medicine, tell your doctor. Call your doctor for medical advice about side effects. You may report side effects to FDA at 5-547-QSU-1709 ?? 2017 [employer] Information is for End User's use only and may not be sold, redistributed or otherwise used for commercial purposes. The above information is an police aide only. It is not intended as medical advice for individual conditions or treatments. Talk to your doctor, nurse or pharmacist before following any medical regimen to see if it is safe and effective for you. documented in this encounter Ordered Prescriptions Prescription Sig Dispense Quantity Refills Last Filled Start Date End Date lisdexamfetamine (VYVANSE) 20 mg capsuleIndications: Attention deficit disorder (ADD) without hyperactivity Take 1 capsule (20 mg total) by mouth every morning 30 capsule 01/28/2020 0 documented in this encounter Progress Notes * Teresa Cadet PA - 01/28/2020 9:30 AM CDT Images from the original note were not included. CHIEF COMPLAINT: Chief Complaint Patient presents with ??? Hypertension BP Check SUBJECTIVE: She is a 29 y.o. female who presents today for nurse visit for blood pressure check and Cardiovascular exam for starting Vyvanse. We discussed this at her telemedicine visit. Discussed all side effects and medication options. Patient verbalized understanding was agreeable plan ROS: Review of Systems Constitutional: Negative for [...] patient is not nervous/anxious. PHYSICAL EXAM: Vitals: 01/28/20 0957 BP: 110/72 BP Location: Left arm Patient Position: Sitting Pulse: 104 Resp: 19 Temp: 37.1 ??C (98.7 ??F) TempSrc: Oral SpO2: 98% Weight: 92.5 kg (204 lb) Height: 165.1 cm (5' 5 ) Body mass index is 33.95 kg/m??. GENERAL: Patient is awake alert and oriented x3 in no acute distress. The patient is well-nourishedand well-developed and, in general, well-appearing. Patient is seated on the exam table. Patient ispleasant and cooperative with the interview and exam. CHEST: No chest wall tenderness noted. Lungs are clear to auscultation bilaterally. No wheezes, rhonchi, or rales appreciated. CARDIOVASCULAR: Heart is in regular rate and rhythm. S1 and S2 are auscultated. No rubs, gallops, or murmurs appreciated. No carotid bruits b/l. NEUROLOGIC: Gait was unremarkable. No focal neurologic deficits observed. PSYCH: Appropriate affect. Denies suicidal or homicidal ideation. 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 Advised to avoid stimulants [id number] while on medication, includingcaffeine. Cardiovascular exam within normal limits. Will follow-up in 3 weeks. Patient agreeable plan documented in this encounter Plan of Treatment Not on file documented as of this encounter Visit Diagnoses Diagnosis Attention deficit disorder (ADD) without hyperactivity- Primary documented in this encounter Care Teams Stereotype Molder Relationship Specialty Start Date End Date Willy Gant MD PCP - General Family Medicine 12/26/18 12/16/21 documented as of this encounter
--- OUTSIDE RECORDS SUMMARY | 2024-04-08 16:59 | XMS_ITS | Encounter Summary ---
Author Organization [facility] Address [address] [place] [address] Care Team Providers Care Repair Armature Winder Name Role Phone Willy Gant MD Primary Care Provider [phone] Reason for Visit * Reason Comments Anxiety F/U Encounter Details Date Type Department Care Team (Late st Contact Info) Description 03/14/2019 8:00 AM CERAMIC COATER MACHINE Office Visit [facility] Family Medicine [address] [place] [address] Teresa Cadet, JULITO [address] [place] [id number] JACQUELINE (generalized anxiety disorder) Social History Tobacco Use Types Packs/Day Years Used Date Smoking Tobacco: Every Day E-cigarettes Smokeless Tobacco: Never Alcohol Use Standard Drinks/Week Comments Not Currently 0 (1 standard drink = 0.6 oz pur e alcohol) Comments Unknown Sex and Gender Information Value Date Recorded Sex Assigned at Not on file Legal Sex Female 6:49 PM CERAMIC COATER MACHINE Gender Identity Female 06/18/2020 3:18 PM CDT Sexual Orientation Choose not to disclose 2020 3:18 PM CDT documented as of this encounter Last Filed Vital Signs Vital Sign Reading Time Taken Comments Blood Pressure 110/70 03/14/2019 8:13 AM CERAMIC COATER MACHINE Pulse 61 03/14/2019 8:13 AM CERAMIC COATER MACHINE Temperature 36.7 ??C (98.1 ??F) 03/14/2019 8:13 AM CS T Respiratory Rate 16 03/14/2019 8:13 AM CERAMIC COATER MACHINE Oxygen Saturation 99% 03/14/2019 8:13 AM CERAMIC COATER MACHINE Inhaled Oxygen Concentration - - Weight 82.1 kg (181 lb) 03/14/2019 8:13 AM CERAMIC COATER MACHINE Height 165.1 cm (5' 5 ) 03/14/2019 8:13 AM CERAMIC COATER MACHINE Body Mass Index 30.12 03/14/2019 8:13 AM CERAMIC COATER MACHINE documented in this encounter Patient Instructions * Patient Instructions* Teresa Cadet PA - 03/14/2019 8:00 AM CERAMIC COATER MACHINE Patient Education Anxiety FOSTER CARE THERAPIST: Anxiety is a condition that causes you to feel extremely worried or nervous. The feelings are so strong that they can cause problems with your daily activities or sleep. Anxiety may be triggered by something you fear, or it may happen without a cause. Family or work stress, smoking, caffeine, and alcohol can increase your risk for anxiety. Certain medicines or health conditions can also increase your risk. Anxiety can become a long-term condition if it is not managed or treated. Common signs and symptoms that may occur with anxiety: ?? Fatigue or muscle tightness ?? Shaking, restlessness, or irritability ?? Problems focusing ?? Trouble sleeping ?? Feeling jumpy, easily startled, or dizzy ?? Rapid heartbeat or shortness of breath Call 911 if: ?? You have chest pain, tightness, or heaviness that may spread to your shoulders, arms, jaw, neck,or back. ?? You feel like hurting yourself or someone else. Contact your healthcare provider if: ?? Your symptoms get worse or do not get better with treatment. ?? You think your medicine may be causing side effects. ?? Your anxiety keeps you from doing your regular daily activities. ?? You have new symptoms since your last visit. ?? You have questions or concerns about your condition or care. Treatment for anxiety may include medicines to help you feel calm and relaxed, and decrease your symptoms. Medicines are usually given together with therapy or other treatments. Manage anxiety: ?? Talk to someone about your anxiety. Your healthcare provider may suggest counseling. Cognitive behavioral therapy can help you understand and change how you react to events that trigger your symptoms. You might feel more comfortable talking with a friend or family member about your anxiety. Choose someone you know will be supportive and encouraging. ?? Find ways to relax. Activities such as exercise, meditation, or listening to music can help you relax. Spend time with friends, or do things you enjoy. ?? Practice deep breathing. Deep breathing can help you relax when you feel anxious. Focus on taking slow, deep breaths several times a day, or during an anxiety attack. Breathe in through your nose and out through your mouth. ?? Create a regular sleep routine. Regular sleep can help you feel calmer during the day. Go to sleep and wake up at the same times every day. Do not watch television or use the computer right beforebed. Your room should be comfortable, dark, and quiet. ?? Eat a variety of healthy foods. Healthy foods include fruits, vegetables, low-fat dairy products, lean meats, fish, whole-grain breads, and cooked beans. Healthy foods can help you feel less anxious and have more energy. ?? Exercise regularly. Exercise can increase your energy level. Exercise may also lift your mood and help you sleep better. Your healthcare provider can help you create an exercise plan. ?? Do not smoke. Nicotine and other chemicals in cigarettes and cigars can increase anxiety. Ask your healthcare provider for information if you currently smoke and need help to quit. E-cigarettes orsmokeless tobacco still contain nicotine. Talk to your healthcare provider before you use these products. ?? Do not have caffeine. Caffeine can make your symptoms worse. Do not have foods or drinks that are meant to increase your energy level. ?? Limit or do not drink alcohol. Ask your healthcare provider if alcohol is safe for you. You may not be able to drink alcohol if you take certain anxiety or depression medicines. Limit alcohol to 1drink per day if you are a woman. Limit alcohol to 2 drinks per day if you are a man. A drink of alcohol is 12 ounces of beer, 5 ounces of wine, or 1?? ounces of liquor. ?? Do not use drugs. Drugs can make your anxiety worse. It can also make anxiety hard to manage. Talk to your healthcare provider if you use drugs and want help to quit. Follow up with your healthcare provider as directed: Write down your questions so you remember to ask them during your visits. ?? 2017 [employer] Information is for End User's use only and may not be sold, redistributed or otherwise used for commercial purposes. All illustrations and images included in CareNotes?? are the copyrighted property of [employer]. or [employer]. The above information is an pathology laboratory aide only. It is not intended as medical advice for individual conditions or treatments. Talk to your doctor, nurse or pharmacist before following any medical regimen to see if it is safe and effective for you. MIC COATER MACHINE documented in this encounter Ordered Prescriptions Prescription Sig Dispense Quantity Refills Last Filled Start Date End Date sertraline (ZOLOFT) 50 mg tabletIndications: JACQUELINE (generalized anxiety disorder) Take 1.5 tablets (75 mg total) by mouth daily 45 tablet 2 03/14/2019 0 documented in this encounter Progress Notes * Teresa Cadet PA - 03/14/2019 8:00 AM CST Images from the original note were not included. CHIEF COMPLAINT: Chief Complaint Patient presents with ??? Anxiety F/U SUBJECTIVE: She is a 28 y.o. female who presents today for f/u on anxiety. She says she felt the increase the zoloft has improved her anxiety overall. She stopped taking the ativan because she felt like she was becoming too reliant on it. She says she's had about 1-2 panic attacks but states they have been much less frequent. She says she has had a lot of stressful circumstances recently in her home life, so she feels like her anxiety is situational at this time. She did start seeing her counselor again and has been only seeing her once monthly due to cost. She is taking buspar bid, which she feels like helps her some. She can tell a difference when she does not take it. She is tolerating the Zoloft well without any side effects. She would like to try increasing the dose at this time ROS: Review of Systems [...] hallucinations and suicidal ideas. The patient is nervous/anxious (f/u anxiety). PHYSICAL EXAM: Vitals: 03/14/19 0813 BP: 110/70 Pulse: 61 Resp: 16 Temp: 36.7 ??C (98.1 ??F) SpO2: 99% Weight: 82.1 kg (181 lb) Height: 165.1 cm (5' 5 ) Body mass index is 30.12 kg/m??. GENERAL: Patient is awake alert and [...] this visit: JACQUELINE (generalized anxiety disorder) (F41.1) - sertraline (ZOLOFT) 50 mg tablet; Take 1.5 tablets (75 mg total) by mouth daily Will increase Zoloft to 75 mg. Continue follow-up with counseling. RTC/call sx worsen anyway, new concerns arise. Discussed ER precautions, including of suicidal thoughts occur. Patient agreeable plan Visit Orders: No orders of the defined [...] allergies listed in the above medical record MIC COATER MACHINE documented in this encounter Plan of Treatment Not on file documented as of this encounter Visit Diagnoses Diagnosis JACQUELINE (generalized anxiety disorder) Generalized anxiety disorder documented in this encounter Discontinued Medications Medication Sig Discontinue Reason Start Date End Da te sertraline (ZOLOFT) 50 mg tabletIndications:JACQUELINE (generalized anxiety disorder) Take 1 tablet (50 mg total) by mouth daily Reorder 02/20/2019 03/14/2019 documented as of this encounter Care Teams Repair Armature Winder Relationship Specialty Start Date End Date Willy Gant MD PCP - General Family Medicine 12/26/18 12/16/21 documented as of this encounter
--- OUTSIDE RECORDS SUMMARY | 2024-04-08 16:59 | XMS_ITS | Encounter Summary ---
Author Organization [facility] Address [address] [place] [address] Care Team Providers Care Dairy Machine Operator Farmworker Name Role Phone Willy Gant MD Primary Care Provider [phone] Reason for Visit * Reason Comments Anxiety/Depression Encounter Details Date Type Department Care Team (Late st Contact Info) Description 02/12/2019 10:00 AM RESORT HOST Office Visit [facility] Family Medicine [address] [place] [address] Teresa Cadet, JULITO [address] [place] [address] JACQUELINE (generalized anxiety disorder) (Primary Dx); Encounter for immunization Social History Tobacco Use Types Packs/Day Years Used Date Smoking Tobacco: Every Day E-cigarettes Smokeless Tobacco: Never Alcohol Use Standard Drinks/Week Comments Not Currently 0 (1 standard drink = 0.6 oz pur e alcohol) Comments Unknown Sex and Gender Information Value Date Recorded Sex Assigned at Not on file Legal Sex Female 6:49 PM RESORT HOST Gender Identity Female 06/18/2020 3:18 PM CDT Sexual Orientation Choose not to disclose 2020 3:18 PM CDT documented as of this encounter Last Filed Vital Signs Vital Sign Reading Time Taken Comments Blood Pressure 118/70 02/12/2019 11:27 AM RESORT HOST Pulse 88 02/12/2019 11:27 AM RESORT HOST Temperature 37 ??C (98.6 ??F) 02/12/2019 11:27 AM RESORT HOST Respiratory Rate 18 02/12/2019 11:27 AM RESORT HOST Oxygen Saturation - - Inhaled Oxygen Concentration - - Weight 79.8 kg (176 lb) 02/12/2019 11:27 AM RESORT HOST Height 165.1 cm (5' 5 ) 02/12/2019 11:27 AM RESORT HOST Body Mass Index 29.29 02/12/2019 11:27 AM RESORT HOST documented in this encounter Patient Instructions * Patient Instructions* Teresa Cadet PA - 02/12/2019 10:00 AM RESORT HOST Patient Education Anxiety INNER LAYER SCRUBBER TENDER: Anxiety is a condition that causes you [...] ask them during your visits. ?? 2017 [employer] Information is for End User's use only and may not be sold, redistributed or otherwise used for commercial purposes. All illustrations and images included in CareNotes?? are the copyrighted property of [employer]. or [employer]. The above information is an unpaid intern only. It is not intended as medical advice for individual conditions or treatments. Talk to your doctor, nurse or pharmacist before following any medical regimen to see if it is safe and effective for you. RT HOST documented in this encounter Ordered Prescriptions Prescription Sig Dispense Quantity Refills Last Filled Start Date End Date sertraline (ZOLOFT) 25 mg tabletIndications: JACQUELINE (generalized anxiety disorder) Take 2 tablets (50 mg total) by mouth daily 60 tablet 1 02/12/2019 9 LORazepam (ATIVAN) 0.5 mg tabletIndications: JACQUELINE (generalized anxiety disorder) Take 1 tablet (0.5 mg total) by mouth daily as needed for anxiety 20 tablet 1 02/12/2019 9 documented in this encounter Progress Notes * Teresa Cadet PA - 02/12/2019 10:00 AM CST Images from the original note were not included. CHIEF COMPLAINT: Chief Complaint Patient presents with ??? Anxiety/Depression SUBJECTIVE: She is a 28 y.o. female who presents today for f/u on anxiety. She says she's tolerating both the zoloft and buspar pretty well overall. She feels like both meds were helping her anxiety significantly. She says she feels like her sleep has been a little more difficult. She feels like she needs to increase the zoloft. States the buspar does help her anxiety and panic attacks some, but states that occasionally she gets severe panic attack that it does not work for. States these do not occur frequently. She has been unable to identify trigger other than stress with taking care of her kids at home. She does have appointment with counselor on of this week She says she is otherwise doingwell and has no other new complaints today. She does request a flu shot today. ROS: Review of Systems Constitutional: Negative for [...] suicidal ideas. The patient is not nervous/anxious. Anxiety PHYSICAL EXAM: Vitals: 02/12/19 1127 BP: 118/70 Pulse: 88 Resp: 18 Temp: 37 ??C (98.6 ??F) Weight: 79.8 kg (176 lb) Height: 165.1 cm (5' 5 ) Body mass index is 29.29 kg/m??. GENERAL: Patient is awake alert and [...] or murmurs appreciated. No carotid bruits b/l. ABDOMEN: Soft, nontender, and nondistended. There are positive bowel sounds in all 4 quadrants. No masses or hepatosplenomegaly noted. EXTREMITIES: No lower extremity edema noted bilaterally. No calf tenderness noted bilaterally. No clubbing or cyanosis noted. 2+ pulses in LE b/l. NEUROLOGIC: Gait was unremarkable. No focal neurologic deficits observed. PSYCH: Appropriate affect. Denies suicidal or homicidal ideation. Assessment/Plan Diagnoses and all orders for this visit: JACQUELINE (generalized anxiety disorder) (F41.1) (Primary) - LORazepam (ATIVAN) 0.5 mg tablet; Take 1 tablet (0.5 mg total) by mouth daily as needed for anxiety - Zoloft 25 mg twice daily Will increase Zoloft to 25 mg. She is tolerating med well without any side effects. Will give shortscript of Ativan to take as needed temporarily while we are adjusting medication.Advised to use sparingly to avoid taking while driving. She has been on this medication in the past and has tolerated well. Advised to RTC/call sx worsen, new concerns arise. Continue follow-up with counselor. Will follow up in 1 month Encounter for immunization (Z23) - Flu Vaccine Quad PF 6m+ IM - Fluarix / FluLaval / Afluria Flu shot in office today Visit Orders: Orders Placed This Encounter Procedures ??? Flu Vaccine Quad PF 6m+ IM - Fluarix / FluLaval / Afluria 1. The patient indicates understanding of these [...] allergies listed in the above medical record RT HOST documented in this encounter Plan of Treatment Not on file documented as of this encounter Visit Diagnoses Diagnosis JACQUELINE (generalized anxiety disorder)- Primary Generalized anxiety disorder Encounter for immunization documented in this encounter Discontinued Medications Medication Sig Discontinue Reason Start Date End Da te sertraline (ZOLOFT) 25 mg tabletIndications:JACQUELINE (generalized anxiety disorder) Take 1 tablet (25 mg total) by mouth daily 01/08/2019 02/12/2019 documented as of this encounter Orders Immunization/Injection Count Last Ordered Date First Ordered Date FLU VACCINE QUAD PF 6M+ IM - FLUARIX / FLULAVAL / AFLURIA 1 02/12/2019 documented in this encounter Care Teams Dairy Machine Operator Farmworker Relationship Specialty Start Date End Date Willy Gant MD PCP - General Family Medicine 12/26/18 12/16/21 documented as of this encounter
--- OUTSIDE RECORDS SUMMARY | 2024-04-08 16:59 | XMS_ITS | Encounter Summary ---
Author Organization [facility] Address [address] [address] Care Team Providers Care Blender / Cook Name Role Phone Willy Gant MD Primary Care Provider [phone] Reason for Visit * Reason Onset Date Comments zoloft/ativan 02/19/2019 Encounter Details Date Type Department Care Team ([facility] st Contact Info) Description 02/19/2019 Telephone [facility] Family Medicine [address] [place] [address] Willy Gant MD [facility] [address] [place] [address] zoloft/ativan Social History Tobacco Use Types Packs/Day Years Used Date Smoking Tobacco: Every Day E-cigarettes Smokeless Tobacco: Never Alcohol Use Standard Drinks/Week Comments Not Currently 0 (1 standard drink = 0.6 oz pur e alcohol) Comments Unknown Sex and Gender Information Value Date Recorded Sex Assigned at Not on file Legal Sex Female 6:49 PM VALIDATION ANALYST Gender Identity Female 06/18/2020 3:18 PM CDT Sexual Orientation Choose not to disclose 2020 3:18 PM CDT documented as of this encounter Ordered Prescriptions Prescription Sig Dispense Quantity Refills Last Filled Start Date End Date LORazepam (ATIVAN) 0.5 mg tabletIndications: JACQUELINE (generalized anxiety disorder) Take 1 tablet (0.5 mg total) by mouth daily as needed for anxiety 20 tablet 1 02/20/2019 9 sertraline (ZOLOFT) 50 mg tabletIndications: JACQUELINE (generalized anxiety disorder) Take 1 tablet (50 mg total) by mouth daily 30 tablet 2 02/20/2019 9 documented in this encounter Miscellaneous Notes * Telephone Encounter - Funmi Blevins MA - 02/20/2019 3:44 PM CST rx for ativan pending DATION ANALYST * Telephone Encounter - Teresa Cadet PA - 02/19/2019 5:21 PM VALIDATION ANALYST Ok zoloft 50 mg. Is she wanting refill on ativan? DATION ANALYST * Telephone Encounter - Shalonda Marin - 02/19/2019 2:08 PM CST We had increased her zoloft so she is needing a refill and would like to talk to you in regards to her ativan. Wander Marie--- Mark Mishra DATION ANALYST documented in this encounter Plan of Treatment Not on file documented as of this encounter Visit Diagnoses Diagnosis JACQUELINE (generalized anxiety disorder) Generalized anxiety disorder documented in this encounter Discontinued Medications Medication Sig Discontinue Reason Start Date End Da te sertraline (ZOLOFT) 25 mg tabletIndications:JACQUELINE (generalized anxiety disorder) Take 2 tablets (50 mg total) by mouth daily Reorder 02/12/2019 02/20/2019 LORazepam (ATIVAN) 0.5 mg tabletIndications:JACQUELINE (generalized anxiety disorder) Take 1 tablet (0.5 mg total) by mouth daily as needed for anxiety Reorder 02/12/2019 02/20/2019 documented as of this encounter Care Teams Blender / Cook Relationship Specialty Start Date End Date Willy Gant MD PCP - General Family Medicine 12/26/18 12/16/21 documented as of this encounter
--- OUTSIDE RECORDS SUMMARY | 2024-04-08 16:59 | XMS_ITS | Continuity of Care Document ---
Author Organization [facility] Address [address] [place] [address] Phone Care Team Providers Care Bicycle Service Technician Name Role Phone Kidd OD, Han Unavailable Unavailable Procedures Procedure Date No Charge Contact Lens Check Vision Svcs Frames Purchases SV Poly Carb Sph [place] To +/- 4 007 Tax - Medical Eye Exam & Treatment Advance Directives Directive Yes / No Effective Date File Name No Information Encounters Encounter Description Practice Location Reason(s) For Visit Diagnoses Date Provider Providers Copied on Encounter [facility], [address] [place] [address] [address], [place], [place], [id number], [place] tel:[phone] [facility] No Information [address] Kidd OD Han. [facility] , [address], [place], [address], [place]. tel:[phone] [facility], [address] [place] [address] [address], [place], [place], [id number], [place] tel:[phone] [facility] No Information 1 7 [facility] . [address], [address], [place], [place], [id number], [place]. tel:[phone] Referring Provider: Han Aburto, [address], [place], [address]. tel:[phone] lara Provider: Liss Kelly, [address], [place], [address]. tel:[phone] [facility], [address], [place], [place], [id number], [place] tel:[phone] [facility] No Information 2-200 7 Kidd OD Han. [address] , [address], [place], [address], [place]. tel:[phone] Family History Family Member Type Diagnosis Age At Onset No Information Payers Payer name Insurance type Covered green party ID Authoriza tion(s) No Information Social History Type Description Quantity Date Captured Comments Sex Female Smoking Status No Information Chief Complaint And Reason For Visit No Information Reason For Referral Reason For Referral No Information History Of Present Illness Encounter Date Complaint History Of Prese nt Illness No Information Functional Status Date Functional Assessmen t No Information Instructions Date Instruction Additional Infor mation No Information Assessments Type Assessment Date No Information Patient Care Teams Name Effective Dates (start - stop) Status Members No Information
--- OUTSIDE RECORDS SUMMARY | 2024-04-08 16:59 | XMS_ITS | Encounter Summary ---
Author Organization [facility] Address [address] [address] Care Team Providers Care Lead Web Application Developer Name Role Phone Willy Gant MD Primary Care Provider [phone] Reason for Visit * Reason Comments ADD Anxiety/Depression Encounter Details Date Type Department Care Team (Late st Contact Info) Description 01/24/2020 2:00 PM CDT Telemedicine [facility] Family Medicine [address] [place] [address] Teresa Cadet PA [address] [address] Attention deficit disorder (ADD) without hyperactivity (Primary [...] on file Legal Sex Female 6:49 PM RIBBON TIER Gender Identity Female 06/18/2020 3:18 PM CDT Sexual Orientation Choose not to disclose 2020 3:18 PM CDT documented as of this encounter Patient Instructions * Patient Instructions* Teresa Cadet PA - 01/24/2020 2:00 PM CDT Patient Education Amphetamine (By mouth) Treats [...] pharmacist before using any other medicine, including [id number]-[id number] medicines, vitamins, and herbal products. ?? Do [...] may report side effects to FDA at 2-426-FQJ-6426 ?? 2017 [employer] Information is for End User's use only and may not be sold, redistributed or otherwise used for commercial purposes. The above information is an environmental engineering aide only. It is not intended as medical advice for individual conditions or treatments. Talk to your doctor, nurse or pharmacist before following any medical regimen to see if it is safe and effective for you. documented in this encounter Progress Notes * Teresa Cadet PA - 01/24/2020 2:00 PM CDT Images from the original note were not included. This was a telemedicine visit with Alise dooley which took place via real-time video connection with Zoom. During the visit, I was located in the office and the patient was located at home in the state of [place]. The patient visit started at 1445 and ended at 1511. The patient has been informed that the [...] Chief Complaint Patient presents with ??? ADD ??? Anxiety/Depression SUBJECTIVE: She is a 29 y.o. female who presents today via telemedicine using audio/video communication for f/uon ADD and anxiety. States she feels better with her mood overall since being off the strattera. She does note, however, that her focus has suffered since being off ADD med. She notes she has troublecompleting tasks and finishing her school work. She says this makes her anxiety worse. She does notwant to be on antidepressant for her anxiety or depression. States she has discussed with her sponsor about starting an ADD medication and she will be following with them weekly for accountability given her hx of addiction. She has tried and failed ritalin, concerta, and adderall and did not like them due to increase in anxiety ROS: Review of Systems Constitutional: Negative for [...] suicidal ideas. The patient is not nervous/anxious. ADD/anxiety Physical Exam Constitutional: She is oriented to person, place, and time and well-developed, well-nourished, and in no distress. HENT: Head: Normocephalic and atraumatic. Eyes: EOM are normal. Pulmonary/Chest: Effort normal. No respiratory distress. Neurological: She is alert and oriented to person, place, and time. Psychiatric: Affect normal. 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 Will start Vyvanse after pt comes into office next week for CV exam and bp, HR check and will start med at that time if all wnl. Pt agreeable to plan. Discussed possible SE of medication JACQUELINE (generalized anxiety disorder) (F41.1) Cont buspar prn. Pt does not want to start new med at this time JULITO Salcedo documented in this encounter Plan of Treatment Not on file documented as of this encounter Visit Diagnoses Diagnosis Attention deficit disorder (ADD) without hyperactivity- Primary JACQUELINE (generalized anxiety disorder) Generalized anxiety disorder documented in this encounter Historical Medications * This list may reflect changes made after this encounter. busPIRone (BUSPAR) 10 mg tabletIndications :Generalized Anxiety Disorder Take 10 mg by mouth as needed 03/09/2021 added in this encounter Care Teams Lead Web Application Developer Relationship Specialty Start Date End Date Willy Gant MD PCP - General Family Medicine 12/26/18 12/16/21 documented as of this encounter
--- OUTSIDE RECORDS SUMMARY | 2024-04-08 16:59 | XMS_ITS | Encounter Summary ---
Author Organization [facility] Facility Care Team Providers Care Record Clerk Salesperson Name Role Phone Willy Gant MD Primary Care Provider [phone] Encounter Details Date Type Department Care Team (Latest Contact Info) Description 02/12/2019 Travel Social History Tobacco Use Types Packs/Day Years Used Date Smoking Tobacco: Every Day E-cigarettes Smokeless Tobacco: Never Alcohol Use Standard Drinks/Week Comments Not Currently 0 (1 standard drink = 0.6 oz pur e alcohol) Comments Unknown Sex and Gender Information Value Date Recorded Sex Assigned at Not on file Legal Sex Female 6:[address] Gender Identity Female 06/18/2020 3:18 PM CDT Sexual Orientation Choose not to disclose 2020 3:18 PM CDT documented as of this encounter Plan of Treatment Not on file documented as of this encounter Visit Diagnoses Not on filedocumented in this encounter Care Teams Record Clerk Salesperson Relationship Specialty Start Date End Date Willy Gant MD PCP - General Family Medicine 12/26/18 12/16/21 documented as of this encounter
--- OUTSIDE RECORDS SUMMARY | 2024-04-08 17:03 | XMS_ITS | Continuity of Care Document ---
Author Organization [facility] Address [address] [place] [address] Phone Care Team Providers Care Telesales Specialist Name Role Phone Kidd OD, Han Unavailable Unavailable Procedures Procedure Date No Charge Contact Lens Check Vision Svcs Frames Purchases SV Poly Carb Sph [place] To +/- 4 007 Tax - Medical Eye Exam & Treatment Advance Directives Directive Yes / No Effective Date File Name No Information Encounters Encounter Description Practice Location Reason(s) For Visit Diagnoses Date Provider Providers Copied on Encounter [facility], [address] [place] [address] [address], [place], [place], [id number], [place] tel:[phone] [facility] No Information [address] Kidd OD Han. [facility] , [address], [place], [address], [place]. tel:[phone] [facility], [address] [place] [address] [address], [place], [place], [id number], [place] tel:[phone] [facility] No Information 1 7 [facility] . [address] [facility], [address], [place], [place], [address], [place]. tel:[phone] Referring Provider: Han Aburto, [address], [place], [address]. tel:[phone] lara Provider: Liss Kelly, [address] [facility], [place], [address]. tel:[phone] [facility], [address], [place], [place], [address], [place] tel:[phone] [facility] No Information [address] Kidd OD Han. [address] [facility] , [address], [place], [address], [place]. tel:[phone] Family History Family Member Type Diagnosis Age At Onset No Information Payers Payer name Insurance type Covered democrat ID Authoriza tion(s) No Information Social History [...]
== END 2024-04-01 15:01 | disposition home or self-care (01) ==
PROVIDERS: Emergency Provider Nurse Practitioner Family; PCP Family Medicine
DX: J01.00 Acute maxillary sinusitis, unspecified (principal); Z79.899 Other long term (current) drug therapy
CPT/HCPCS: 99213; G0463

== ENCOUNTER 2025-03-11 00:53 | Observation (INO) | payer BC, SELFPAY ==
--- NOTE | ~2025-03-11 | US_ITS ---
EXAMINATION: US right upper quadrant DATE: 03/11/2025 11:49 INDICATION: Acute cholecystitis TECHNIQUE: Multiple grayscale and Doppler ultrasound images of the abdomen were obtained. COM PARISON: None FINDINGS: Sludge and small stones appear to be present in the gallbladder with thickened gallbladder wall measuring up to 7.6 mm. Common bile duct: 5.0 mm The liver is borderline enlarged measuring up to 17.2 cm. The pancreas is poorly visualized. The right kidney appears normal. No free fluid is seen. IMPRESSION: Gallstones and gallbladder sludge with gallbladder wall thickening concerning for developing cholecystitis. The pancreas is poorly evaluated on this exam. Reviewed, dictated and finalized at location A. [employer] IMPRESSION: Gallstones and gallbladder sludge with gallbladder wall thickening concerning for developing cholecystitis. The pancreas is poorly evaluated on th is exam.
--- NOTE | ~2025-03-11 | CT_ITS ---
EXAMINATION: CT abdomen pelvis w con DATE: 03/11/2025 07:01 INDICATION: Right upper quadrant abdominal pain. TECHNIQUE: Computed tomography (CT) of the abdomen and pelvis was performed with 100 mL Omnipaque 350 intravenous contrast. Automated exposure control and iterative reconstruction technique were employed. The dose-length product was 608.20 mGy-cm. COMPARISON: None. FINDINGS: The visualized portions of lung bases demonstrate mild atelectasis. No pleural effusion. The heart size is normal. No pericardial effusion. There is periportal edema in the liver. The gallbladder is normal in size. Gallbladder wall thickening is noted. The spleen, pancreas, adrenal glands, and kidneys are normal. There is an intrauterine device in expected position. There is a 12 mm uterine fibroid. There is a dominant follicle in left ovary. There is diverticulosis of the colon without evidence of diverticulitis. There are changes of appendectomy. There are no pathologically enlarged lymph nodes. There is physiologic fluid in the pelvis. There is mild thoracic and lumbar spondylosis. IMPRESSION: 1. Normal-sized gallbladder with wall thickening. The differential diagnosis includes interstitial edema and chronic cholecystitis. 2. Small uterine fibroid. Reviewed, dictated and finalized at location E. [employer] IMPRESSION: 1. Normal-sized gallbladder with wall thickening. The differential diagnosis in cludes interstitial edema and chronic cholecystitis. 2. Small uterine fibroid.
[2025-03-11 00:51] VITALS: BP 124/66; PULSE 79; RESP 15; TEMP 36.8; O2SAT 100
--- NOTE | 2025-03-11 01:22 | ECG_ITS ---
Test Date: 2025-03-11 07:24:48 Measurements Intervals [place] Rate: 47 P: 0 [place]: 0 QRS: 66 QRSD: 86 T: 31 QT: 440 QTc: 389 Interpretive Statements SINUS BRADYCARDIA WITH INTERMITTENT JUNCTIONAL COMPLEXES ABNORMAL ECG No previous ECG available for comparison Electronically Signed On 03-11-2025 07:53:10 DAY CARE TEACHER by Abhishek Bay D.O.
--- NOTE | 2025-03-11 01:22 | ED.ABDPAIN ---
HPI - Abdominal Pain General Chief Complaint: Abdominal Pain Stated Complaint: abd apin Time Seen by Provider: 03/11/25 01:22 Related Data Home Medications ?Medication ?Instructions ?Recorded ?Confirmed ?Last Taken ?Type drospirenone (contraceptive) 4 mg 1 tablet PO DAILY 02/03/23 02/23/23 Unknown History (28) tablet (Slynd) dextroamphetamine-amphetamine 30 04/01/24 Unknown History mg tablet hydroxyzine HCl 25 mg tablet mg 04/01/24 Unknown History Allergies Allergy/AdvReac Type Severity Reaction Status Date / Time Cephalosporins Allergy Mild Rash Verified 04/01/24 14:24 Penicillins Allergy Mild Rash Verified 04/01/24 14:24 Sulfa (Sulfonamide Allergy Mild Rash Verified 04/01/24 14:24 Antibiotics) Course Vital Signs Vital signs: Vital Signs Temperature 36.8 C 03/11/25 00:51 Pulse Rate 79 03/11/25 00:51 Respiratory Rate 15 03/11/25 00:51 Blood Pressure 124/66 03/11/25 00:51 Pulse Oximetry 100 03/11/25 00:51 Oxygen Delivery Room Air 03/11/25 00:51 Temperature 36.8 C 03/11/25 00:51 Pulse Rate 79 03/11/25 00:51 Respiratory Rate 15 03/11/25 00:51 Blood Pressure 124/66 03/11/25 00:51 Pulse Oximetry 100 03/11/25 00:51 Oxygen Delivery Room Air 03/11/25 00:51 Discharge Plan Discharge Instructions: Antibiotic Form Patient Language: Welsh Prescriptions: No Action Slynd 4 mg (28) tablet 1 tablet PO DAILY dextroamphetamine-amphetamine 30 mg tablet hydroxyzine HCl 25 mg tablet promethazine-DM 6.25-15 mg/5 mL syrup 5 ml PO Q4-6H PRN (Reason: cough) Qty: 118 0RF doxycycline hyclate 100 mg capsule 100 mg PO BID 10 Days Qty: 20 0RF Follow-up/Referrals: Stalin,Willy Wagner MD [Primary Care Provider]
--- NOTE | 2025-03-11 01:59 | ED.ABDPAIN ---
HPI - Abdominal Pain General Chief Complaint: Abdominal Pain <Love Ramirez APRN - Last Filed: 03/11/25 02:39> Stated Complaint: abd apin <Love Ramirez APRN - Last Filed: 03/11/25 02:39> Time Seen by Provider: 03/11/25 01:22 <Love Ramirez APRN - Last Filed: 03/11/25 02:39> Source: patient <Tashi Stephanie Yarbrough DO - Last Filed: 03/11/25 08:05> Mode of arrival: EMS <Tashi Yarbrough DO - Last Filed: 03/11/25 08:05> Limitations: no limitations <Tashi Yarbrough DO - Last Filed: 03/11/25 08:05> History of Present Illness HPI narrative: Patient is a 34-year-old female who presents to the ER with generalized abdominal pain. She reports her pain started earlier today. Patient reports her pain is mostly located in her mid-upper abdomen. She denies any chest pain, recent fevers, or urinary symptoms. Patient reports the pain has started radiating from her abdomen to her right back. She denies any pertinent medical history. <Love Ramirez APRN - Last Filed: 03/11/25 02:39> Related Data Home Medications: Home Medications ?Medication ?Instructions ?Recorded ?Confirmed ?Last Taken ?Type drospirenone (contraceptive) 4 mg 1 tablet PO DAILY 02/03/23 02/23/23 Unknown History (28) tablet (Slynd) dextroamphetamine-amphetamine 30 04/01/24 Unknown History mg tablet hydroxyzine HCl 25 mg tablet mg 04/01/24 Unknown History <Love Ramirez APRN - Last Filed: 03/11/25 02:39> Allergies/Adverse Reactions: Allergies Allergy/AdvReac Type Severity Reaction Status Date / Time Cephalosporins Allergy Mild Rash Verified 04/01/24 14:24 Penicillins Allergy Mild Rash Verified 04/01/24 14:24 Sulfa (Sulfonamide Allergy Mild Rash Verified 04/01/24 14:24 Antibiotics) <Love Ramirez APRN - Last Filed: 03/11/25 02:39> Review of Systems Review of Systems: All systems reviewed & are unremarkable except as noted in HPI and below <Love Ramirez APRN - Last Filed: 03/11/25 02:39> Exam Narrative: GENERAL: Ill appearing, well-nourished, non-toxic, in acute distress. HEAD: Normocephalic, atraumatic. NECK: Supple. No adenopathy, no masses. RESPIRATORY: Airway patent, respirations nonlabored. Clear to auscultation bilaterally, no rales, rhonchi, wheezing. CARDIOVASCULAR: Regular rate and rhythm without murmurs, rubs, or gallops. Peripheral pulses 2+ and equal bilaterally. ABDOMINAL: Soft, generalized tenderness (RUQ most significant), mildly distended.Normoactive BS. + Sanders's sign MUSCULOSKELETAL: Moves all extremities. Strength/ROM intact without gross deformities. SKIN: Warm, dry, normal color. No rashes. NEURO: A&O X3. Speech clear. Cranial nerves II-XII intact. No ataxic movements. PSYCHIATRIC: Appropriate mood and affect. Normal interaction. 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 I performed all aspects of the MDM as documented. <Tashi Yarbrough DO - Last Filed: 03/11/25 08:05> Vital Signs Vital signs: Vital Signs Temperature 98.3 F 03/11/25 00:51 Pulse Rate 79 03/11/25 00:51 Respiratory Rate 15 03/11/25 00:51 Blood Pressure 124/66 03/11/25 00:51 Pulse Oximetry 100 03/11/25 00:51 Oxygen Delivery Room Air 03/11/25 00:51 Temperature 98.3 F 03/11/25 00:51 Pulse Rate 68 03/11/25 07:17 Respiratory Rate 17 03/11/25 07:17 Blood Pressure 100/69 03/11/25 07:17 Pulse Oximetry 100 03/11/25 07:17 Oxygen Delivery Room Air 03/11/25 00:51 <Love Ramirez APRN - Last Filed: 03/11/25 02:39> Vital Signs Temperature 98.3 F 03/11/25 00:51 Pulse Rate 79 03/11/25 00:51 Respiratory Rate 15 03/11/25 00:51 Blood Pressure 124/66 03/11/25 00:51 Pulse Oximetry 100 03/11/25 00:51 Oxygen Delivery Room Air 03/11/25 00:51 Temperature 98.3 F 03/11/25 00:51 Pulse Rate 68 03/11/25 07:17 Respiratory Rate 17 03/11/25 07:17 Blood Pressure 100/69 03/11/25 07:17 Pulse Oximetry 100 03/11/25 07:17 Oxygen Delivery Room Air 03/11/25 00:51 <Tashi Yarbrough, DO - Last Filed: 03/11/25 08:05> [facility] MDM Narrative Medical decision making narrative: Patient is a 34-year-old female who presents to the ER with generalized abdominal pain. She reports her pain started earlier today. Patient reports her pain is mostly located in her mid-upper abdomen. She denies any chest pain, recent fevers, or urinary symptoms. Patient reports the pain has started radiating from her abdomen to her right back. She denies any pertinent medical history. Labs Ordered: CBC, CMP, UDS, ethanol, lactic acid, magnesium, TSH, lipase Imaging Ordered: CT abdomen pelvis Medications Ordered: 1 L normal saline IV bolus, Protonix IV, morphine 4 mg IV, GI cocktail [id number]-Care signed out to Dr. Yarbrough pending CT scan results. <Love Ramirez, FISHERY BIOLOGIST - Last Filed: 03/11/25 02:39> Patient is a 34-year-old female who presents to the ER with generalized abdominal pain. She reports her pain started earlier today. Patient reports her pain is mostly located in her mid-upper abdomen. She denies any chest pain, recent fevers, or urinary symptoms. Patient reports the pain has started radiating from her abdomen to her right back. She denies any pertinent medical history. Labs Ordered: CBC, CMP, UDS, ethanol, lactic acid, magnesium, TSH, lipase Imaging Ordered: CT abdomen pelvis Medications Ordered: 1 L normal saline IV bolus, Protonix IV, morphine 4 mg IV, GI cocktail [id number]-Care signed out to Dr. Yarbrough pending CT scan results. Ethyl alcohol is less than 10. UDS is negative. Urinalysis has 1+ bacteria, trace leukocyte esterase, 1+ blood, trace ketones. HCG testing is negative. CBC reveals a hemoglobin of 10.3. Comprehensive metabolic panel reveals a sodium 136, chloride 110, AST of 297, ALT of 160. TSH is 1.07. Lipase is 42. Magnesium is 1.8. Lactic acid is 0.5. On reassessment patient notes she still having some pain, informed of results and plan of care. Page to General surgery please. Patient the hospitalist placed. Spoke with General surgery on-call who agrees with plan of care, will see the patient in consultation, admit to the hospitalist. I spoke with the hospitalist who has accepted the patient for admission. <Tashi Yarbrough DO - Last Filed: 03/11/25 08:05> Differential Diagnosis Differential Diagnosis: Cholelithiasis, cholecystitis, urinary tract infection, pyelonephritis, kidney stone <Love Ramirez APRN - Last Filed: 03/11/25 02:39> Lab Data MDM Lab Attestation statement: I personally reviewed the patient's lab results. <Tashi Yarbrough DO - Last Filed: 03/11/25 08:05> Result diagrams: 03/11/25 05:17 03/11/25 05:17 <Love Ramirez, FISHERY BIOLOGIST - Last Filed: 03/11/25 02:39> Labs: Lab Results 03/11/25 03/11/25 Range/Units 02:36 05:17 WBC 9.1 (4.5-10.0) K/mm3 RBC 3.95 L (4.2-5.4) M/mm3 Hgb 10.3 L (12.0-15.0) g/dL Hct 32.4 L (37.0-47.0) % MCV 82.0 (80-100) fl MCH 26.1 (26-34) pg MCHC 31.8 L (32-36) g/dl RDW 15.6 H (11.5-14.5) % Plt Count 275 (150-375) k/mm3 MPV 10.6 H (7.4-10.4) fl Immature Gran % (Auto) 0.3 (0-0.5) % Neut % (Auto) 81.5 H (45.5-73.1) % Lymph % (Auto) 12.7 L (18.3-44.2) % Andrews % (Auto) 5.1 (2.6-8.5) % Eos % (Auto) 0.2 (0-4.4) % Baso % (Auto) 0.2 (0.2-1.2) % Lymph # (Auto) 1.15 (0.9-3.2) K/mm3 Andrews # (Auto) 0.5 (0.1-0.6) K/mm3 Eos # (Auto) 0.0 (0-0.3) K/mm3 Baso # (Auto) 0.0 (0.0-0.1) K/mm3 Abs Immat Gran (auto) 0.03 (0.00-0.031) K/mm3 Absolute Neuts (auto) 7.4 H (1.3-6.7) K/mm3 Absolute Nucleated RBC 0.000 (0.0-0.012) K/mm3 Nucleated RBC % 0.0 (0.0-0.2) % Sodium 136 L (137-145) mmol/L Potassium 4.2 (3.4-5.0) mmol/L Chloride 110 H (98-107) mmol/L Carbon Dioxide 22 (22-30) mmol/L Anion Gap 4 (4-12) mmol/L BUN 10 (7-17) mg/dL Creatinine 0.66 L (0.7-1.0) mg/dL Estim Creat Clear Calc 109 ml/min Estimated GFR > 60 (59 - ) Glucose 91 (65-110) mg/dL Lactic Acid 0.5 L (0.7-2.0) mmol/L Calcium 8.4 (8.4-10.2) mg/dL Magnesium 1.8 (1.6-2.3) mg/dL Total Bilirubin 0.6 (0.2-1.3) mg/dL AST 297 H (14-36) U/L ALT 160 H (6-35) U/L Alkaline Phosphatase 68 (38-126) U/L Total Protein 6.7 (6.3-8.2) g/dL Albumin 3.8 (3.5-5.1) g/dL Lipase 42 (23-300) U/L TSH (Reflex) 1.070 (0.465-4.68) uIU/mL Serum HCG, Qual Negative Urine Color Yellow (Yellow) Urine Appearance Clear (Clear) Urine pH 7.0 (5.0-9.0) Ur Specific [place]ham 1.021 (1.001-1.035) Urine Protein Negative (Negative) mg/dL Urine Glucose (UA) Negative (Negative) mg/dL Urine Ketones Trace H (Negative) mg/dL Ur Blood (Man) 1+ H (Negative) Urine Nitrate Negative (Negative) Urine Bilirubin Negative (Negative) Urine Urobilinogen 1.0 (<2.0) mg/dL Leukocyte Esterase Rfl Trace H (Negative) HAWK/UL Urine RBC 0-2 (0-2) /hpf Urine WBC 0-5 (0-3) /hpf Ur Squamous Epith Cells Occasional (Few) /hpf Urine Bacteria 1+ H /hpf Urine Casts 0-2 Urine Opiates Screen Negative (Negative) Urine Methadone Screen Negative (Negative) Ur Barbiturates Screen Negative (Negative) Ur Phencyclidine Scrn Negative (Negative) Ur Amphetamine Screen Negative (Negative) U Benzodiazepines Scrn Negative (Negative) Urine Cocaine Screen Negative (Negative) U Cannabinoids Screen Negative (Negative) Ethyl Alcohol < 10 (<10) mg/dL <Love Ramirez, FISHERY BIOLOGIST - Last Filed: 03/11/25 02:39> Lab Results 03/11/25 03/11/25 Range/Units 02:36 05:17 WBC 9.1 (4.5-10.0) K/mm3 RBC 3.95 L (4.2-5.4) M/mm3 Hgb 10.3 L (12.0-15.0) g/dL Hct 32.4 L (37.0-47.0) % MCV 82.0 (80-100) fl MCH 26.1 (26-34) pg MCHC 31.8 L (32-36) g/dl RDW 15.6 H (11.5-14.5) % Plt Count 275 (150-375) k/mm3 MPV 10.6 H (7.4-10.4) fl Immature Gran % (Auto) 0.3 (0-0.5) % Neut % (Auto) 81.5 H (45.5-73.1) % Lymph % (Auto) 12.7 L (18.3-44.2) % Andrews % (Auto) 5.1 (2.6-8.5) % Eos % (Auto) 0.2 (0-4.4) % Baso % (Auto) 0.2 (0.2-1.2) % Lymph # (Auto) 1.15 (0.9-3.2) K/mm3 Andrews # (Auto) 0.5 (0.1-0.6) K/mm3 Eos # (Auto) 0.0 (0-0.3) K/mm3 Baso # (Auto) 0.0 (0.0-0.1) K/mm3 Abs Immat Gran (auto) 0.03 (0.00-0.031) K/mm3 Absolute Neuts (auto) 7.4 H (1.3-6.7) K/mm3 Absolute Nucleated RBC 0.000 (0.0-0.012) K/mm3 Nucleated RBC % 0.0 (0.0-0.2) % Sodium 136 L (137-145) mmol/L Potassium 4.2 (3.4-5.0) mmol/L Chloride 110 H (98-107) mmol/L Carbon Dioxide 22 (22-30) mmol/L Anion Gap 4 (4-12) mmol/L BUN 10 (7-17) mg/dL Creatinine 0.66 L (0.7-1.0) mg/dL Estim Creat Clear Calc 109 ml/min Estimated GFR > 60 (59 - ) Glucose 91 (65-110) mg/dL Lactic Acid 0.5 L (0.7-2.0) mmol/L Calcium 8.4 (8.4-10.2) mg/dL Magnesium 1.8 (1.6-2.3) mg/dL Total Bilirubin 0.6 (0.2-1.3) mg/dL AST 297 H (14-36) U/L ALT 160 H (6-35) U/L Alkaline Phosphatase 68 (38-126) U/L Total Protein 6.7 (6.3-8.2) g/dL Albumin 3.8 (3.5-5.1) g/dL Lipase 42 (23-300) U/L TSH (Reflex) 1.070 (0.465-4.68) uIU/mL Serum HCG, Qual Negative Urine Color Yellow (Yellow) Urine Appearance Clear (Clear) Urine pH 7.0 (5.0-9.0) Ur Specific [place] 1.021 (1.001-1.035) Urine Protein Negative (Negative) mg/dL Urine Glucose (UA) Negative (Negative) mg/dL Urine Ketones Trace H (Negative) mg/dL Ur Blood (Man) 1+ H (Negative) Urine Nitrate Negative (Negative) Urine Bilirubin Negative (Negative) Urine Urobilinogen 1.0 (<2.0) mg/dL Leukocyte Esterase Rfl Trace H (Negative) HAWK/UL Urine RBC 0-2 (0-2) /hpf Urine WBC 0-5 (0-3) /hpf Ur Squamous Epith Cells Occasional (Few) /hpf Urine Bacteria 1+ H /hpf Urine Casts 0-2 Urine Opiates Screen Negative (Negative) Urine Methadone Screen Negative (Negative) Ur Barbiturates Screen Negative (Negative) Ur Phencyclidine Scrn Negative (Negative) Ur Amphetamine Screen Negative (Negative) U Benzodiazepines Scrn Negative (Negative) Urine Cocaine Screen Negative (Negative) U Cannabinoids Screen Negative (Negative) Ethyl Alcohol < 10 (<10) mg/dL <Tashi Yarrbough DO - Last Filed: 03/11/25 08:05> Imaging Data Radiologist's impression: ITS Impressions Abdomen/Pelvis CT 03/11/25 07:09 IMPRESSION: 1. Normal-sized gallbladder with wall thickening. The differential diagnosis includes interstitial edema and chronic cholecystitis. 2. Small uterine fibroid. <Love Ramirez APRN - Last Filed: 03/11/25 02:39> ITS Impressions Abdomen/Pelvis CT 03/11/25 07:09 IMPRESSION: 1. Normal-sized gallbladder with wall thickening. The differential diagnosis includes interstitial edema and chronic cholecystitis. 2. Small uterine fibroid. <Tashi Yarbrough DO - Last Filed: 03/11/25 08:05> Discharge Plan Discharge Clinical Impression: Cholecystitis, Transaminitis <Love Ramirez APRN - Last Filed: 03/11/25 02:39> Patient Disposition: Still a Patient <Love Ramirez APRN - Last Filed: 03/11/25 02:39> Condition: Stable <Love Ramirez APRN - Last Filed: 03/11/25 02:39> Instructions: Antibiotic Form <Love Ramirez APRN - Last Filed: 03/11/25 02:39> Patient Language: Armenian <Love Ramirez APRN - Last Filed: 03/11/25 02:39> Prescriptions: No Action Slynd 4 mg (28) tablet 1 tablet PO DAILY dextroamphetamine-amphetamine 30 mg tablet hydroxyzine HCl 25 mg tablet promethazine-DM 6.25-15 mg/5 mL syrup 5 ml PO Q4-6H PRN (Reason: cough) Qty: 118 0RF doxycycline hyclate 100 mg capsule 100 mg PO BID 10 Days Qty: 20 0RF <Love Ramirez APRN - Last Filed: 03/11/25 02:39> Follow-up/Referrals: Stalin,Willy Wagner MD [Primary Care Provider] <Love Ramirez APRN - Last Filed: 03/11/25 02:39> Time of Disposition: 07:55 <Love Ramirez APRN - Last Filed: 03/11/25 02:39> 07:55 <Tashi Yarbrough DO - Last Filed: 03/11/25 08:05>
[2025-03-11 02:53] LABS: Add Urine Microscopic? YES; Appearance Urine Clear (Clear); Glucose Urine UA Negative (Negative); Leukocyte Esterase Ur Trace LEU/UL (Negative); Nitrate Urine Negative (Negative); Non Pathogenic Casts 0-2; Specific Grav Ur 1.021 (1.001-1.035)
[2025-03-11 03:07] LABS: Cannabinoid Screen Urine Negative (Negative)
[2025-03-11] MEDS: MORPHINE SULFATE (*CRX) 4 MG/ML INJ IV PUSH ×5 (04:45→17:30)
[2025-03-11] MEDS: SODIUM CHLORIDE 0.9% IV 1,000 ML 999 ML IV CONT (04:45)
[2025-03-11] MEDS: PANTOPRAZOLE SODIUM IV 40 MG VIAL IV PUSH (04:59)
[2025-03-11] MEDS: BELLADONNA ALK/PHENOB ELIX 10 ML, MAG HYDROX/ALUMINUM HYD/SIMETH 30 ML, LIDOCAINE 2% VI... PO (05:00)
[2025-03-11 05:30] LABS: Hematocrit 32.4 % (37.0-47.0); Hemoglobin 10.3 g/dL (12.0-15.0); Immature Granulocyte Percent A 0.3 % (0-0.5); Lymphocytes Absolute Auto 1.15 K/mm3 (0.9-3.2); Mean Corpuscular HGB Conc 31.8 g/dl (32-36); Mean Corpuscular Hemoglobin 26.1 pg (26-34); Mean Corpuscular Volume 82.0 fl (80-100); Nucleated Red Blood Cells Absolute Auto 0.000 K/mm3 (0.0-0.012); Nucleated Red Blood Cells Perc 0.0 % (0.0-0.2); Platelet Count Result 275 k/mm3 (150-375); Red Blood Count 3.95 M/mm3 (4.2-5.4); White Blood Count 9.1 K/mm3 (4.5-10.0)
[2025-03-11 05:41] LABS: Alanine Aminotransferase 160 U/L (6-35); Albumin Level 3.8 g/dL (3.5-5.1); Alkaline Phosphatase 68 U/L (38-126); Anion Gap 4 mmol/L (4-12); Aspartate Amino Transferase 297 U/L (14-36); Bilirubin,Total 0.6 mg/dL (0.2-1.3); Blood Urea Nitrogen 10 mg/dL (7-17); Calcium 8.4 mg/dL (8.4-10.2); Carbon Dioxide 22 mmol/L (22-30); Chloride 110 mmol/L (98-107); Estimated CRCL calculation 109 ml/min; Estimated Glomerular Filt Rate > 60; Glucose 91 mg/dL (65-110); Lipase 42 U/L (23-300); Magnesium 1.8 mg/dL (1.6-2.3); Potassium 4.2 mmol/L (3.4-5.0); Sodium 136 mmol/L (137-145); Total Protein 6.7 g/dL (6.3-8.2)
[2025-03-11 06:19] LABS: Thyroid Stimulating Hormone Reflex 1.070 uIU/mL (0.465-4.68)
[2025-03-11 06:37] LABS: SPREG INTERNAL CONTROL Positive; Serum Qual hCG Negative
[2025-03-11 07:17] VITALS: BP 100/69; PULSE 68; RESP 17; O2SAT 100
[2025-03-11] MEDS: SODIUM CHLORIDE 0.9% IV 1,000 ML 125 ML IV CONT (08:21)
[2025-03-11] MEDS: levoFLOXacin 750 MG/D5W 150 ML 750 MG/150 ML BAG 100 MG IVPB (08:27)
[2025-03-11 08:34] VITALS: BP 95/69; PULSE 68; RESP 16; TEMP 36.6; O2SAT 98
--- NOTE | 2025-03-11 08:41 | WPCEDHO ---
ED Hand Off Checklist All vitals saved: Y IV Site documented:Y All med administrations documented:Y Triage Note Triage Note pt to ED via [facility] 03/11/25 00:51 from home with c/o epigastric pain and n/v. pt is on Ozempic and Adderall. pt had a similar episode and had Pepcid which resolved. pt unable to resolve pain tonight with pepcid. pt also complaints of n/v and dizziness. pt was given 4mg of Zofran. pt had pressure of 90s/70s and given fluids by EMS. Allergies Cephalosporins Allergy (Mild, Verified 03/11/25 08:36) Rash Penicillins Allergy (Mild, Verified 03/11/25 08:36) Rash Sulfa (Sulfonamide Antibiotics) Allergy (Mild, Verified 03/11/25 08:36) Rash Active Medications including assessments/comments Levofloxacin/Dextrose (Levaquin 750 Mg/D5w 150 Ml) 750 mg in 150 mls @ 100 mls/hr IVPB ONCE STA Stop: 03/11/25 09:25 Last Admin: 03/11/25 08:27 Dose: 100 mls/hr Documented By: CPN Infusion/Titration Document 03/11/25 08:27 CPN (Rec: 03/11/25 08:28 CPN [id number]) Intake IV Site Peripheral Access Left Hand Container Volume 150 Waste Amount 0 Dosing Infusion Rate 100 Increase/Decrease Started Elapsed Time Elapsed Time ( 0m minutes) Sodium Chloride (Normal Saline Iv) 1,000 mls @ 125 mls/hr IV CONT .Q8H YOKO Last Admin: 03/11/25 08:21 Dose: 125 mls/hr Documented By: CPN Infusion/Titration Document 03/11/25 08:21 CPN (Rec: 03/11/25 08:21 CPN [id number]) Intake IV Site Peripheral Access Left Hand Container Volume 1,000 Waste Amount 0 Dosing Infusion Rate 125 Cumulative Dose Not Applicable Increase/Decrease Started Elapsed Time Elapsed Time ( 0m minutes) Morphine Sulfate (Morphine Sulfate (*Crx) 4 Mg/Ml Inj) 4 mg IV PUSH Q2H PRN PRN Reason: Pain Rated 7-10 Last Admin: 03/11/25 08:28 Dose: 4 mg Documented By: KOTA MAR Pain Assessment Document 03/11/25 08:28 CPN (Rec: 03/11/25 08:29 CPN [id number]) Pain Evaluation Pain Evaluation Assessment Pain Scale Pain Scale Used Numeric (1 - 10) Order Parameters Order Parameters for Pain Level 7-10 (Severe) Administering this Pain Med Self Report Pain Assessment Reported Pain Level 7 Pain Location Abdomen Pain Frequency Acute,Continuous Pain Score Pain Score 7: Self Report Administered/Completed Medications Discontinued Medications Belladonna Alkaloids/Phenobarbital 10 ml/ Al Hydrox /Mg Hydrox/Simethicone 30 ml/Lidocaine HCl 10 ml 0 ml PO ONCE STA Stop: 03/11/25 04:54 Last Admin: 03/11/25 05:00 Dose: 30 ml Documented By: MMB Sodium Chloride (Normal Saline Iv) 1,000 mls @ 999 mls/hr IV CONT .Q1H1M STA Stop: 03/11/25 02:22 Last Infusion: 03/11/25 07:15 Dose: Infused Documented By: Admin: 03/11/25 04:45 Dose: 999 mls/hr Documented By: MMBrenda Morphine Sulfate (Morphine Sulfate (*Crx) 4 Mg/Ml Inj) 4 mg IV PUSH ONCE STA Stop: 03/11/25 01:42 Last Admin: 03/11/25 04:45 Dose: 4 mg Documented By: MMBrenda Pantoprazole Sodium (Pantoprazole Sodium Iv 40 Mg Vial) 40 mg IV PUSH ONCE STA Stop: 03/11/25 04:54 Last Admin: 03/11/25 04:59 Dose: 40 mg Documented By: HODA Interventions/Assessments IV / Saline Lock, Insert Start: 03/11/25 00:46 Freq: Status: Active Protocol: Document 03/11/25 08:40 KOTA (Rec: 03/11/25 08:41 KOTA [id number]) IV Assessment Peripheral Access Left Antecubital IV Catheter Access Continued IV Insertion Date 03/11/25 Catheter Gauge 18 IV Site Assessment WNL IV Care and WNL Maintenance Peripheral Access Left Hand IV Catheter Access Discontinued Access Additional IV IV not in L hand Comments PA: Gastrointestinal Assessment Start: 03/11/25 00:46 Freq: Status: Active Protocol: Document 03/11/25 07:16 AZG (Rec: 03/11/25 07:16 AZG [id number]) GI Assessment Gastrointestinal Pain Symptoms Description Soft All Quadrants Bowel Sounds Active Pattern Constipated Date of Last Bowel 03/08/25 Movement Stool Size Moderate Nausea/Vomiting Assessment Nausea Frequency Intermittent Emesis Frequency Intermittent Emesis Description Bile Last Vital Signs Temperature 98 F 03/11/25 08:34 Pulse Rate 68 03/11/25 08:34 Respiratory Rate 16 03/11/25 08:34 Pulse Oximetry 98 03/11/25 08:34 Blood Pressure 95/69 L 03/11/25 08:34 Blood Pressure Mean 77 03/11/25 08:34 Blood Pressure Position Supine 03/11/25 08:34 Oxygen Delivery Room Air 03/11/25 00:51 Weight 83.1 kg 03/11/25 00:51 Last Result - Abnormals Only RBC 3.95 M/mm3 (4.2-5.4) L 03/11/25 05:17 Hgb 10.3 g/dL (12.0-15.0) L 03/11/25 05:17 Hct 32.4 % (37.0-47.0) L 03/11/25 05:17 MCHC 31.8 g/dl (32-36) L 03/11/25 05:17 RDW 15.6 % (11.5-14.5) H 03/11/25 05:17 MPV 10.6 fl (7.4-10.4) H 03/11/25 05:17 Neut % (Auto) 81.5 % (45.5-73.1) H 03/11/25 05:17 Lymph % (Auto) 12.7 % (18.3-44.2) L 03/11/25 05:17 Absolute Neuts (auto) 7.4 K/mm3 (1.3-6.7) H 03/11/25 05:17 Sodium 136 mmol/L (137-145) L 03/11/25 05:17 Chloride 110 mmol/L (98-107) H 03/11/25 05:17 Creatinine 0.66 mg/dL (0.7-1.0) L 03/11/25 05:17 Lactic Acid 0.5 mmol/L (0.7-2.0) L 03/11/25 05:17 AST 297 U/L (14-36) H 03/11/25 05:17 ALT 160 U/L (6-35) H 03/11/25 05:17 Urine Ketones Trace mg/dL (Negative) H 03/11/25 02:36 Ur Blood (Man) 1+ (Negative) H 03/11/25 02:36 Leukocyte Esterase Rfl Trace HAWK/UL (Negative) H 03/11/25 02:36 Urine Bacteria 1+ /hpf H 03/11/25 02:36 Most Recent Suicide Severity Rating Suicide Severity Rating NO RISK INDICATED 03/11/25 00:51
[2025-03-11 09:04] VITALS: BMI 31.4
[2025-03-11 09:15] VITALS: BP 92/59; PULSE 53; RESP 16; TEMP 36.1; O2SAT 100
--- NOTE | 2025-03-11 09:41 | ADMGEN ---
This patient, Alise Augustine, was admitted to [facility] Surg Room 310-01. Patient/family oriented to hospital policies and general routines including ID bracelet, bed and alarms, visiting hours, pain management, procedures, bathroom and other care routines, personal items, smoking policy, room service/diet, and visiting hours. Information on how to activate the Rapid Response Team has been discussed. Patient/Family are encouraged to report perceived risks to care and to ask questions if they do not understand what they are told or what they should do. received report from anand
--- NOTE | 2025-03-11 11:18 | PM.CNGS ---
Assessment and Plan Assessment and plan (1) Biliary colic: Code(s): K80.50 - Calculus of bile duct without cholangitis or cholecystitis without obstruction Status: Acute Assessment and Plan: Patient presented to the emergency department yesterday with right upper quadrant pain that started earlier in the day. She had associated nausea and vomiting. Upon arrival ED, labs revealed a normal bilirubin and normal white blood cell count. Elevated AST and ALT. CT was obtained and demonstrated a normal-sized gallbladder with wall thickening. The hospitalist team did order an ultrasound. Will follow for results from this imaging. Keep patient NPO for the time being, as she will likely need laparoscopic cholecystectomy if she continues to be symptomatic. Plan Discussed patient's case and plan of care with Dr. Gonzalez. History of Present Illness Consult details Consult date: 03/11/25 Reason for consult: other (cholecystitis) Requesting physician: Tashi Yarbrough DO Narrative: Patient is a 34-year-old female who we have been asked to see in surgical consultation for cholecystitis. Patient 1st started experiencing right upper quadrant pain yesterday evening. She had brunch around 11 and then had cheese curds for dinner and some pretzels for a snack afterwards. Pain continued to increase and radiate towards her back. She had an episode of emesis in the ambulance. Patient states that she did have a similar episode of pain few weeks ago. She took Pepcid and the pain subsided. Once patient arrived at the hospital, labs revealed a normal white blood cell count and normal bilirubin. AST and ALT elevated. A CT showed a normal size gallbladder with wall thickening. General surgery team consulted at this time. Patient admitted to hospitalist service. Upon my interview this morning, patient endorses still having some right upper quadrant pain. Past abdominal surgeries include a laparoscopic appendectomy and a hysterectomy. Last bowel movement was a few days ago. Patient does note that she is currently taking Ozempic Jazlyn she has had less frequent bowel since starting the medication. Her last dose was taken yesterday. [facility] Family History Family History (Updated 03/11/25 @ 09:19 by Shane Wiley RN) Mother Hyperthyroidism Graves disease Pancreatitis Diabetes mellitus Sleep apnea Father Heart disease Alzheimer dementia Hypertension Sleep apnea Sibling Sleep apnea Grandparent Alzheimer dementia Diabetes mellitus Social History Social History Smoking status: Current every day smoker Tobacco type: e-cigarettes/vaping Alcohol intake: current Drinks per week: 1 Substance use: never Lack of Transportation: No Lack of Food: Never True Current Housing: I Have Housing Concerned About Future Housing: No Difficulty Paying Gas/Electric Bills: No Difficulty Paying for Meds: No Currently Unemployed: No Education: Associate Degree Difficulty w/ Childcare or Family Care: No Spiritual care concerns: No Meds Home Medications and Allergies Home Medications ?Medication ?Instructions ?Recorded ?Confirmed ?Type hydroxyzine HCl 25 mg tablet 25 mg PO TID PRN anxiety 04/01/24 03/11/25 History dextroamphetamine-amphetamine ER 30 mg PO DAILY 03/11/25 03/11/25 History 30 mg 24hr capsule,extend release Allergies Allergy/AdvReac Type Severity Reaction Status Date / Time Cephalosporins Allergy Mild Rash Verified 03/11/25 09:08 Penicillins Allergy Mild Rash Verified 03/11/25 09:08 Sulfa (Sulfonamide Allergy Mild Rash Verified 03/11/25 09:08 Antibiotics) Vital Signs Vital Signs - 24 hr 03/11/25 00:51 03/11/25 07:17 03/11/25 08:34 Temperature 98.3 F 98 F Pulse Rate 79 68 68 Respiratory Rate 15 17 16 Blood Pressure 124/66 100/69 95/69 L Pulse Oximetry 100 100 98 Oxygen Delivery Room Air 03/11/25 09:15 03/11/25 09:41 Temperature 97.0 F L Pulse Rate 53 L Respiratory Rate 16 Blood Pressure 92/59 L Pulse Oximetry 100 Oxygen Delivery Room Air Exam Const: General: comfortable and no acute distress Neck: Neck: supple Resp: Effort & Inspection: normal respiratory effort Cardio: Rate: bradycardic GI: Inspection: non-distended GI Palp: Yes Soft to palpation and Yes Tenderness to palpation present (GI) (RUQ) Auscultation: abnormal bowel sounds (hypoactive) : General: Yes bladder normal to palpation Skin: General skin exam: normal color and no rashes or lesions noted Extrem: General: normal to inspection Psych: Mental Status: mental status grossly normal Results Labs 03/11/25 05:17 03/11/25 05:17 Labs: Abnormal lab results 03/11/25 03/11/25 Range/Units 02:36 05:17 RBC 3.95 L (4.2-5.4) M/mm3 Hgb 10.3 L (12.0-15.0) g/dL Hct 32.4 L (37.0-47.0) % MCHC 31.8 L (32-36) g/dl RDW 15.6 H (11.5-14.5) % MPV 10.6 H (7.4-10.4) fl Neut % (Auto) 81.5 H (45.5-73.1) % Lymph % (Auto) 12.7 L (18.3-44.2) % Absolute Neuts (auto) 7.4 H (1.3-6.7) K/mm3 Sodium 136 L (137-145) mmol/L Chloride 110 H (98-107) mmol/L Creatinine 0.66 L (0.7-1.0) mg/dL Lactic Acid 0.5 L (0.7-2.0) mmol/L AST 297 H (14-36) U/L ALT 160 H (6-35) U/L Urine Ketones Trace H (Negative) mg/dL Ur Blood (Man) 1+ H (Negative) Leukocyte Esterase Rfl Trace H (Negative) HAWK/UL Urine Bacteria 1+ H /hpf Diabetes panel 03/11/25 Range/Units 05:17 Sodium 136 L (137-145) mmol/L Potassium 4.2 (3.4-5.0) mmol/L Chloride 110 H (98-107) mmol/L Carbon Dioxide 22 (22-30) mmol/L BUN 10 (7-17) mg/dL Creatinine 0.66 L (0.7-1.0) mg/dL Glucose 91 (65-110) mg/dL Calcium 8.4 (8.4-10.2) mg/dL AST 297 H (14-36) U/L ALT 160 H (6-35) U/L Alkaline Phosphatase 68 (38-126) U/L Total Protein 6.7 (6.3-8.2) g/dL Albumin 3.8 (3.5-5.1) g/dL Calcium panel 03/11/25 Range/Units 05:17 Calcium 8.4 (8.4-10.2) mg/dL Albumin 3.8 (3.5-5.1) g/dL Pituitary panel 03/11/25 Range/Units 05:17 Sodium 136 L (137-145) mmol/L Potassium 4.2 (3.4-5.0) mmol/L Chloride 110 H (98-107) mmol/L Carbon Dioxide 22 (22-30) mmol/L BUN 10 (7-17) mg/dL Creatinine 0.66 L (0.7-1.0) mg/dL Glucose 91 (65-110) mg/dL Calcium 8.4 (8.4-10.2) mg/dL Adrenal panel 03/11/25 Range/Units 05:17 Sodium 136 L (137-145) mmol/L Potassium 4.2 (3.4-5.0) mmol/L Chloride 110 H (98-107) mmol/L Carbon Dioxide 22 (22-30) mmol/L BUN 10 (7-17) mg/dL Creatinine 0.66 L (0.7-1.0) mg/dL Glucose 91 (65-110) mg/dL Calcium 8.4 (8.4-10.2) mg/dL Total Bilirubin 0.6 (0.2-1.3) mg/dL AST 297 H (14-36) U/L ALT 160 H (6-35) U/L Alkaline Phosphatase 68 (38-126) U/L Total Protein 6.7 (6.3-8.2) g/dL Albumin 3.8 (3.5-5.1) g/dL All other labs normal.
[2025-03-11 13:53] VITALS: BP 105/62; PULSE 55; RESP 16; TEMP 36.8; O2SAT 98
--- NOTE | 2025-03-11 14:07 | PM.IMHP2 ---
H&P: HPI History of Present Illness Date/Time: 03/11/25 14:07 Chief Complaint: Right upper quadrant abdominal pain Narrative: 34-year-old female with past medical history of anxiety presented with right upper quadrant abdominal pain. Patient had an episode of right upper quadrant abdominal pain 2 weeks ago, thought it to be indigestion, resolved in few hours spontaneously. Started again yesterday, did not resolve, had an episode of vomiting. Denies any fever, chills. CT abdomen shows Normal-sized gallbladder with wall thickening. The differential diagnosis includes interstitial edema and chronic cholecystitis. Review of Systems Review of Systems: All systems reviewed & are unremarkable except as noted in HPI and below PMFSH Family History Family History Mother Hyperthyroidism Graves disease Pancreatitis Diabetes mellitus Sleep apnea Father Heart disease Alzheimer dementia Hypertension Sleep apnea Sibling Sleep apnea Grandparent Alzheimer dementia Diabetes mellitus Social History Social History Smoking status: Current every day smoker Tobacco type: e-cigarettes/vaping Alcohol intake: current Drinks per week: 1 Substance use: never Lack of Transportation: No Lack of Food: Never True Current Housing: I Have Housing Concerned About Future Housing: No Difficulty Paying Gas/Electric Bills: No Difficulty Paying for Meds: No Currently Unemployed: No Education: Associate Degree Difficulty w/ Childcare or Family Care: No Spiritual care concerns: No Meds Home Medications and Allergies Home Medications ?Medication ?Instructions ?Recorded ?Confirmed ?Type hydroxyzine HCl 25 mg tablet 25 mg PO TID PRN anxiety 04/01/24 03/11/25 History dextroamphetamine-amphetamine ER 30 mg PO DAILY 03/11/25 03/11/25 History 30 mg 24hr capsule,extend release Allergies Allergy/AdvReac Type Severity Reaction Status Date / Time Cephalosporins Allergy Mild Rash Verified 03/11/25 09:08 Penicillins Allergy Mild Rash Verified 03/11/25 09:08 Sulfa (Sulfonamide Allergy Mild Rash Verified 03/11/25 09:08 Antibiotics) Vital Signs Vital Signs - 24 hr 03/11/25 00:51 03/11/25 07:17 03/11/25 08:34 Temperature 98.3 F 98 F Pulse Rate 79 68 68 Respiratory Rate 15 17 16 Blood Pressure 124/66 100/69 95/69 L Pulse Oximetry 100 100 98 Oxygen Delivery Room Air 03/11/25 09:15 03/11/25 09:41 Temperature 97.0 F L Pulse Rate 53 L Respiratory Rate 16 Blood Pressure 92/59 L Pulse Oximetry 100 Oxygen Delivery Room Air Exam Const: General: no acute distress HENMT: Mouth: Yes moist mucous membranes Eyes: Sclera: sclerae normal Neck: Neck: supple Resp: Effort & Inspection: normal respiratory effort Auscultation: clear to auscultation bilaterally Cardio: Rate: regular rate Rhythm: regular rhythm GI: GI Palp: Yes Soft to palpation Auscultation: normal bowel sounds Other: Right upper quadrant, epigastric tenderness present Skin: General skin exam: normal color Neuro: Speech: normal speech Sensory Exam: normal sensation Extrem: General: normal to inspection Psych: Mental Status: mental status grossly normal Affect: normal affect Results Labs Labs: Short CBC 03/11/25 Range/Units 05:17 WBC 9.1 (4.5-10.0) K/mm3 Hgb 10.3 L (12.0-15.0) g/dL Hct 32.4 L (37.0-47.0) % Plt Count 275 (150-375) k/mm3 BMP 03/11/25 05:17 Sodium 136 L Potassium 4.2 Chloride 110 H Carbon Dioxide 22 BUN 10 Creatinine 0.66 L Glucose 91 Calcium 8.4 Liver Function 03/11/25 Range/Units 05:17 Total Bilirubin 0.6 (0.2-1.3) mg/dL AST 297 H (14-36) U/L ALT 160 H (6-35) U/L Alkaline Phosphatase 68 (38-126) U/L Albumin 3.8 (3.5-5.1) g/dL Urine 03/11/25 Range/Units 02:36 Urine Color Yellow (Yellow) Urine Appearance Clear (Clear) Urine pH 7.0 (5.0-9.0) Ur Specific [place] 1.021 (1.001-1.035) Urine Protein Negative (Negative) mg/dL Urine Glucose (UA) Negative (Negative) mg/dL Quality VTE Prophylaxis VTE prophylaxis: mechanical ordered Assessment and Plan Assessment and plan (1) Cholecystitis: Code(s): K81.9 - Cholecystitis, unspecified Status: Acute (2) Transaminitis: Code(s): R74.01 - Elevation of levels of liver transaminase levels Status: Acute (3) Biliary colic: Code(s): K80.50 - Calculus of bile duct without cholangitis or cholecystitis without obstruction Status: Acute Plan 34-year-old female with past medical history of anxiety presenting with right upper quadrant abdominal pain, epigastric pain, symptoms suggestive of acute cholecystitis. 1. Right upper quadrant abdominal pain: Admit to general medicine IV fluids NPO Pain control Obtain right upper quadrant ultrasound Will start on PPI IV Zofran p.r.n. Obtain blood culture Will start on levofloxacin General surgery consulted Labs in a.m. 2. Hold all home medications for now due to NPO status 3. DVT prophylaxis: SCDs for now in anticipation of surgical intervention 4. Code status: Full 5. Disposition: Admit to General Medicine Time Spent with Patient Time with patient: 45 - 74 minutes Hospitalist MIPS Advance Care Plan I have confirmed that the patient's Advanced Care Plan is present, code status is documented, or surrogate decision maker is listed in patient medical record.: Yes Medication Reconciliation I have utilized all available resources to obtain, update and review the patients current medications (includes all prescriptions, OTC, herbals, cannabis, and nutritional supplements).: Yes
[2025-03-11] MEDS: ONDANSETRON INJ 4 MG/2 ML VIAL IV PUSH ×2 (15:32→20:08)
[2025-03-11] MEDS: SODIUM CHLORIDE 0.9% IV 1,000 ML 100 ML IV CONT (16:35)
[2025-03-11] MEDS: ACETAMINOPHEN 325 MG TABLET 650 MG PO (20:06)
[2025-03-11 21:03] VITALS: BP 95/56; PULSE 62; RESP 18; TEMP 36.1; O2SAT 100
[2025-03-12] VITALS (13 sets, daily range): BP systolic 89–152; BP diastolic 45–81; PULSE 60–93; RESP 15–18; TEMP 35.7–37.2; O2SAT 96–100
[2025-03-12 06:22] LABS: Hematocrit 32.2 % (37.0-47.0); Hemoglobin 10.0 g/dL (12.0-15.0); Immature Granulocyte Percent A 0.2 % (0-0.5); Lymphocytes Absolute Auto 2.17 K/mm3 (0.9-3.2); Mean Corpuscular HGB Conc 31.1 g/dl (32-36); Mean Corpuscular Hemoglobin 26.2 pg (26-34); Mean Corpuscular Volume 84.5 fl (80-100); Nucleated Red Blood Cells Absolute Auto 0.000 K/mm3 (0.0-0.012); Nucleated Red Blood Cells Perc 0.0 % (0.0-0.2); Platelet Count Result 260 k/mm3 (150-375); Red Blood Count 3.81 M/mm3 (4.2-5.4); White Blood Count 5.6 K/mm3 (4.5-10.0)
[2025-03-12 06:50] LABS: Alanine Aminotransferase 111 U/L (6-35); Albumin Level 3.4 g/dL (3.5-5.1); Alkaline Phosphatase 63 U/L (38-126); Anion Gap 5 mmol/L (4-12); Aspartate Amino Transferase 60 U/L (14-36); Bilirubin,Total 0.5 mg/dL (0.2-1.3); Blood Urea Nitrogen 6 mg/dL (7-17); Calcium 8.4 mg/dL (8.4-10.2); Carbon Dioxide 22 mmol/L (22-30); Chloride 107 mmol/L (98-107); Estimated CRCL calculation 101 ml/min; Estimated Glomerular Filt Rate > 60; Glucose 76 mg/dL (65-110); Potassium 3.8 mmol/L (3.4-5.0); Sodium 134 mmol/L (137-145); Total Protein 6.2 g/dL (6.3-8.2)
[2025-03-12 07:15] LABS: Hepatitis B Surface Antigen Negative (Negative)
[2025-03-12 07:22] LABS: HAV RESULT Negative (Negative); Hepatitis B Core IgM Result Negative (Negative)
[2025-03-12] MEDS: levoFLOXacin 750 MG/D5W 150 ML 750 MG/150 ML BAG 100 MG IVPB (08:42)
[2025-03-12] MEDS: PANTOPRAZOLE SODIUM IV 40 MG VIAL IV PUSH (08:42)
[2025-03-12] MEDS: MORPHINE SULFATE (*CRX) 4 MG/ML INJ IV PUSH ×4 (08:57→23:28)
--- NOTE | 2025-03-12 12:39 | PM.IMPN2 ---
Assessment and Plan Assessment and Plan (1) Cholecystitis: Code(s): K81.9 - Cholecystitis, unspecified Status: Acute (2) Transaminitis: Code(s): R74.01 - Elevation of levels of liver transaminase levels Status: Acute (3) Biliary colic: Code(s): K80.50 - Calculus of bile duct without cholangitis or cholecystitis without obstruction Status: Acute Plan 34-year-old female with past medical history of anxiety presenting with right upper quadrant abdominal pain, epigastric pain, symptoms suggestive of acute cholecystitis. 1. Right upper quadrant abdominal pain: Admit to general medicine IV fluids NPO Pain control Right upper quadrant ultrasound shows acute cholecystitis Continue with PPI IV Zofran p.r.n. Follow-up blood cultures Continue with levofloxacin Likely plan for surgical intervention later today by General surgery 2. Hold all home medications for now due to NPO status 3. DVT prophylaxis: SCDs for now in anticipation of surgical intervention 4. Code status: Full 5. Disposition: Pending surgical intervention Time Spent With Patient Time with patient: 25 - 35 minutes Subjective Date/time seen: 03/12/25 12:39 Interval history: Intermittent right upper quadrant abdominal pain Review of Systems Review of Systems: All systems reviewed & are unremarkable except as noted in HPI and below Exam Const: General: no acute distress HENMT: Mouth: Yes moist mucous membranes Eyes: Sclera: sclerae normal Neck: Neck: supple Resp: Effort & Inspection: normal respiratory effort Auscultation: clear to auscultation bilaterally Cardio: Rate: regular rate Rhythm: regular rhythm GI: GI Palp: Yes Soft to palpation Auscultation: normal bowel sounds Other: Right upper quadrant, epigastric tenderness present Skin: General skin exam: normal color Neuro: Speech: normal speech Sensory Exam: normal sensation Extrem: General: normal to inspection Psych: Mental Status: mental status grossly normal Affect: normal affect Objective Data Vital Signs Vital Signs: Vital Signs - 24 hr 03/11/25 13:53 03/11/25 20:00 03/11/25 21:03 Temperature 98.2 F 96.9 F L Pulse Rate 55 L 62 Respiratory Rate 16 18 Blood Pressure 105/62 95/56 L Pulse Oximetry 98 100 Oxygen Delivery Room Air 03/12/25 05:28 Temperature 97.7 F Pulse Rate 67 Respiratory Rate 18 Blood Pressure 89/45 L Pulse Oximetry 98 Oxygen Delivery Intake/Output Intake/Output: Intake & Output 03/09/25 03/10/25 03/11/25 03/12/25 23:59 23:59 23:59 23:59 Intake Total 3000 480 Balance 3000 480 Meds/Results Medications: Active Medications Generic Name Dose Route Start Last Admin Trade Name Freq PRN Reason Stop Dose Admin Acetaminophen 650 mg 03/11/25 14:13 03/11/25 20:06 Acetaminophen 325 Mg Tablet PO 650 mg Q4H PRN Administration Headache Levofloxacin/Dextrose 750 mg in 150 mls @ 100 mls/hr 03/12/25 09:00 03/12/25 08:42 Levaquin 750 Mg/D5w 150 Ml IVPB 100 mls/hr Q24H YOKO Administration Sodium Chloride 1,000 mls @ 100 mls/hr 03/11/25 08:05 03/11/25 16:35 Normal Saline Iv IV CONT 100 mls/hr .Q10H YOKO Administration Morphine Sulfate 4 mg 03/11/25 08:03 03/12/25 08:57 Morphine Sulfate (*Crx) 4 Mg/Ml Inj IV PUSH 4 mg Q2H PRN Administration Pain Rated 7-10 Ondansetron HCl 4 mg 03/11/25 08:03 03/11/25 20:08 Ondansetron Inj 4 Mg/2 Ml Vial IV PUSH 4 mg Q4H PRN Administration Nausea Pantoprazole Sodium 40 mg 03/12/25 09:00 03/12/25 08:42 Pantoprazole Sodium Iv 40 Mg Vial IV PUSH 40 mg QAM YOKO Administration Radiology Results: ITS Impressions Abdomen/Pelvis CT 03/11/25 07:09 IMPRESSION: 1. Normal-sized gallbladder with wall thickening. The differential diagnosis includes interstitial edema and chronic cholecystitis. 2. Small uterine fibroid. Upper Quadrant Ultrasound 03/11/25 11:50 IMPRESSION: Gallstones and gallbladder sludge with gallbladder wall thickening concerning for developing cholecystitis. The pancreas is poorly evaluated on this exam. Labs Labs: Laboratory Results - last 24 hr 03/12/25 05:17 WBC 5.6 RBC 3.81 L Hgb 10.0 L Hct 32.2 L MCV 84.5 MCH 26.2 MCHC 31.1 L RDW 15.9 H Plt Count 260 MPV 11.4 H Immature Gran % (Auto) 0.2 Neut % (Auto) 51.3 Lymph % (Auto) 39.0 [place] % (Auto) 6.8 Eos % (Auto) 2.3 Baso % (Auto) 0.4 Lymph # (Auto) 2.17 [place] # (Auto) 0.4 Eos # (Auto) 0.1 Baso # (Auto) 0.0 Abs Immat Gran (auto) 0.01 Absolute Neuts (auto) 2.9 Absolute Nucleated RBC 0.000 Nucleated RBC % 0.0 Sodium 134 L Potassium 3.8 Chloride 107 Carbon Dioxide 22 Anion Gap 5 BUN 6 L Creatinine 0.72 Estim Creat Clear Calc 101 Estimated GFR > 60 Glucose 76 Calcium 8.4 Total Bilirubin 0.5 AST 60 H ALT 111 H Alkaline Phosphatase 63 Total Protein 6.2 L Albumin 3.4 L Hepatitis A IgM Ab Negative Hep Bs Antigen Negative Hep B Core IgM Ab Negative Hepatitis C Ab Screen Negative Quality VTE Prophylaxis VTE prophylaxis: mechanical ordered
[2025-03-12] MEDS: LACTATED RINGERS 1,000 ML 30 ML IV CONT ×2 (13:43→16:07)
--- NOTE | 2025-03-12 14:43 | P.PNAN_ITS ---
Anes - Initial Pre Proc Eval Procedure: Operation Date: 03/12/25 15:00 Proposed Procedures p Laparoscopic Cholecystectomy - Brandie Gonzalez MD Date/Time: 03/12/25 14:43 Surgeon: Kacie Kingston MD Pre Op Diagnosis: cholecystitis Patient Data Age: 34 Gender: F Height: 1.63 m Weight: 83.1 kg Last Vital Signs Temp 37.2 C 03/12/25 13:43 Pulse 67 03/12/25 13:43 Resp 16 03/12/25 13:43 BP 110/57 L 03/12/25 13:43 Pulse Ox 100 03/12/25 13:43 O2 Del Method Room Air 03/12/25 13:43 Allergies Allergy/AdvReac Type Severity Reaction Status Date / Time Cephalosporins Allergy Mild Rash Verified 03/11/25 09:08 Penicillins Allergy Mild Rash Verified 03/11/25 09:08 Sulfa (Sulfonamide Allergy Mild Rash Verified 03/11/25 09:08 Antibiotics) Home Medications ?Medication ?Instructions ?Recorded ?Confirmed ?Type hydroxyzine HCl 25 mg tablet 25 mg PO TID PRN anxiety 04/01/24 03/11/25 History dextroamphetamine-amphetamine ER 30 mg PO DAILY 03/11/25 History 30 mg 24hr capsule,extend release Laboratory Tests 03/12/25 05:17 WBC 5.6 K/mm3 (4.5-10.0) RBC 3.81 L M/mm3 (4.2-5.4) Hgb 10.0 L g/dL (12.0-15.0) Hct 32.2 L % (37.0-47.0) MCV 84.5 fl (80-100) MCH 26.2 pg (26-34) MCHC 31.1 L g/dl (32-36) RDW 15.9 H % (11.5-14.5) Plt Count 260 k/mm3 (150-375) MPV 11.4 H fl (7.4-10.4) Immature Gran % (Auto) 0.2 % (0-0.5) Neut % (Auto) 51.3 % (45.5-73.1) Lymph % (Auto) 39.0 % (18.3-44.2) [place] % (Auto) 6.8 % (2.6-8.5) Eos % (Auto) 2.3 % (0-4.4) Baso % (Auto) 0.4 % (0.2-1.2) Lymph # (Auto) 2.17 K/mm3 (0.9-3.2) [place] # (Auto) 0.4 K/mm3 (0.1-0.6) Eos # (Auto) 0.1 K/mm3 (0-0.3) Baso # (Auto) 0.0 K/mm3 (0.0-0.1) Abs Immat Gran (auto) 0.01 K/mm3 (0.00-0.031) Absolute Neuts (auto) 2.9 K/mm3 (1.3-6.7) Absolute Nucleated RBC 0.000 K/mm3 (0.0-0.012) Nucleated RBC % 0.0 % (0.0-0.2) Sodium 134 L mmol/L (137-145) Potassium 3.8 mmol/L (3.4-5.0) Chloride 107 mmol/L (98-107) Carbon Dioxide 22 mmol/L (22-30) Anion Gap 5 mmol/L (4-12) BUN 6 L mg/dL (7-17) Creatinine 0.72 mg/dL (0.7-1.0) Estim Creat Clear Calc 101 ml/min Estimated GFR > 60 (59 - ) Glucose 76 mg/dL (65-110) Calcium 8.4 mg/dL (8.4-10.2) Total Bilirubin 0.5 mg/dL (0.2-1.3) AST 60 H U/L (14-36) ALT 111 H U/L (6-35) Alkaline Phosphatase 63 U/L (38-126) Total Protein 6.2 L g/dL (6.3-8.2) Albumin 3.4 L g/dL (3.5-5.1) Hepatitis A IgM Ab Negative (Negative) Hep Bs Antigen Negative (Negative) Hep B Core IgM Ab Negative (Negative) Hepatitis C Ab Screen Negative (Negative) Patient hx anesthesia problems: post op nausea/vomiting Family hx anesthesia problems: none Results Review: All pre-operative results and documents have been reviewed as part of the pre- operative evaluation. [facility] Family History Family History Mother Hyperthyroidism Graves disease Pancreatitis Diabetes mellitus Sleep apnea Father Heart disease Alzheimer dementia Hypertension Sleep apnea Sibling Sleep apnea Grandparent Alzheimer dementia Diabetes mellitus Social History Social History Smoking status: Current every day smoker Tobacco type: e-cigarettes/vaping Alcohol intake: current Drinks per week: 1 Substance use: never Lack of Transportation: No Lack of Food: Never True Current Housing: I Have Housing Concerned About Future Housing: No Difficulty Paying Gas/Electric Bills: No Difficulty Paying for Meds: No Currently Unemployed: No Education: Associate Degree Difficulty w/ Childcare or Family Care: No Spiritual care concerns: No Anes - Eval Final PreProcedure Day of Procedure 03/12/25 14:43 Patient weight: obese Heart: regular rate and rhythm Lungs: clear to auscultation Airway: Mallampati scale class II Neurological: alert and oriented Last oral intake: >/= 8 hours ASA classification: II Emergent: no Anesthetic plan: proceed Anesthesia type and monitoring: general ETT and standard monitoring Results Review: All pre-operative results and documents have been reviewed as part of the pre- operative evaluation. Informed Consent: The patient's anesthetic plan and its attendant risks and benefits were discussed with the patient/family/POA. Questions were solicited and answers provided to the satisfaction of the patient/family/POA.
[2025-03-12] MEDS: SCOPOLAMINE 1 MG PATCH 1 PATCH TRANSDERM (14:45)
--- NOTE | 2025-03-12 14:46 | WPDHPUPDATE1 ---
History and Physical Update Update Date/Time: 03/12/25 14:46 History and Physical has been reviewed, including an updated exam of the patient. There are NO changes in the patient's condition. Risks, benefits, and alternatives have been discussed and questions answered. Patient agrees to proceed with procedure.
[2025-03-12] MEDS: BUPIVACAINE/EPINEPHRINE 0.5% 30 ML VIAL INFILTRATE (15:41)
--- NOTE | 2025-03-12 15:50 | S_PTH ---
PATIENT: Alise Augustine LOC: [id number] U#:[id number] AGE/SX: 34/F ROOM: 310 RE03/11/[address]: JULITO Escalona : 1990 BED: 01 DIS: 03/13/2025 SPEC #: [id number] RECD: 03/13/25 08:31 STATUS: UMA REAnnie #: [id number] ZACH: 03/12/25 15:[address]: Brandie Gonzalez DEPT: [facility] Surgical RECD BY: Bessy Montes De Oca MLT, ([facility]) ENTERED: 03/13/25 08:31 SP TYPE: Surgical OTHR DR: JULITO Escalona MD James P. WadeMD Tissues: A - Gallbladder Procedures: Hematoxylin and Eosin Stain Gross and Microscopic Level 3
--- NOTE | 2025-03-12 15:58 | W.PM.PROC2 ---
Procedure Note - Detailed Date of Procedure 03/12/25 Pre-op Diagnosis cholecystitis, cholelithiasis Post-op Diagnosis Same Procedure Performed Laparoscopic cholecystectomy Surgeon Brandie Gonzalez MD Anesthesia General Indications 34-year-old female presenting with cholecystitis, cholelithiasis Findings Cholecystitis with cholelithiasis Description of Procedure The patient was taken to the operating room placed in the supine position. After adequate induction of general anesthesia, the patient was prepped and draped in normal sterile fashion. A time-out was then performed to verify the patient's identity as well as the procedure being performed. I then made a 5 mm incision in the infraumbilical region. Through this, a Veress needle was placed into the peritoneal cavity and CO2 gas was then insufflated. After adequate pneumoperitoneum was achieved, the Veress needle was removed and a 5 mm optiview trocar was placed through this incision under direct visualization. I then placed the laparoscope through this trocar site and under direct visualization placed a further 12 mm subxiphoid port as well as 2 additional 5 mm ports in the right upper abdomen. The gallbladder was then identified and was noted to be moderately inflamed, distended, and full of gallstones. I was able to place a grasper at the dome of the gallbladder and this was retracted anterior and cephalad up over the liver. A 2nd retractor was then placed at the infundibulum and retracted laterally, this allowed visualization of the triangle of [place]ot. I then was able to visualize the cystic duct in its entirety from its proximal insertion into the gallbladder, to its distal junction with the common hepatic/common bile duct junction. At this point, I carefully skeletonized the proximal cystic duct with the [place] dissector. I then clipped and transected the proximal cystic duct. Next I visualized the cystic artery. Again the artery was skeletonized, clipped, and transected. I then used the Bovie cautery to take down the peritoneal attachments of the gallbladder off the liver bed. This was somewhat difficult given the amount of inflammation in the posterior space. Once the gallbladder specimen was completely detached, an endo-pouch was placed through the 12 mm port site. I then placed the gallbladder specimen into the Endo pouch and removed the endo-pouch from the 12 mm port site. The specimen will now be sent to pathology for further review. I then copiously irrigated the right upper quadrant. Some mild oozing was noted in the liver bed and this was controlled with the bovie cautery. Hemostasis was noted in the liver bed, the clips were noted to be in good position on both the cystic duct stump and the cystic artery stump. No other pathology was noted in the right upper quadrant. I then moved the laparoscope to the subxiphoid port. No iatrogenic injury or other pathology was noted in the lower abdomen. I then closed the 12 mm trocar site under direct visualization using the Rajiv cone and 0 Vicryl suture. At this point, the abdomen was desufflated and all ports removed. All port sites were then closed with 4.O Monocryl subcuticular sutures. Dermabond was placed on each incision. The patient tolerated the procedure well, was extubated in the operating room postoperative and will be transferred to the recovery room in stable condition Estimated Blood Loss 10 Drains No Packing No Pathology Yes Complications No immediate complications Condition Stable Disposition PACU [facility] Billing Surgery - Charge Forward: Surgery Billing
[2025-03-12] MEDS: fentaNYL CITRATE INJ (*CRX) 100 MCG/2 ML VIAL 25 MCG IV PUSH ×6 (16:28→16:57)
[2025-03-12] MEDS: ONDANSETRON INJ 4 MG/2 ML VIAL IV PUSH (17:58)
[2025-03-12] MEDS: HYDROcodone/acetaminophen (*CRX) 5-325 MG TABLET 1 TAB PO (22:40)
[2025-03-13 04:00] VITALS: BP 106/50; PULSE 67; RESP 16; TEMP 36.1; O2SAT 97
[2025-03-13] MEDS: MORPHINE SULFATE (*CRX) 4 MG/ML INJ IV PUSH ×2 (05:02→07:43)
[2025-03-13] MEDS: HYDROcodone/acetaminophen (*CRX) 5-325 MG TABLET 1 TAB PO (06:21)
[2025-03-13 07:46] LABS: Hematocrit 31.4 % (37.0-47.0); Hemoglobin 9.8 g/dL (12.0-15.0); Immature Granulocyte Percent A 0.4 % (0-0.5); Lymphocytes Absolute Auto 1.01 K/mm3 (0.9-3.2); Mean Corpuscular HGB Conc 31.2 g/dl (32-36); Mean Corpuscular Hemoglobin 26.1 pg (26-34); Mean Corpuscular Volume 83.7 fl (80-100); Nucleated Red Blood Cells Absolute Auto 0.000 K/mm3 (0.0-0.012); Nucleated Red Blood Cells Perc 0.0 % (0.0-0.2); Platelet Count Result 280 k/mm3 (150-375); Red Blood Count 3.75 M/mm3 (4.2-5.4); White Blood Count 9.8 K/mm3 (4.5-10.0)
[2025-03-13 08:00] VITALS: BP 111/58; PULSE 64; RESP 18; TEMP 36; O2SAT 99
[2025-03-13 08:08] LABS: Alanine Aminotransferase 81 U/L (6-35); Albumin Level 3.4 g/dL (3.5-5.1); Alkaline Phosphatase 58 U/L (38-126); Anion Gap 2 mmol/L (4-12); Aspartate Amino Transferase 41 U/L (14-36); Bilirubin,Total 0.3 mg/dL (0.2-1.3); Blood Urea Nitrogen 6 mg/dL (7-17); Calcium 8.5 mg/dL (8.4-10.2); Carbon Dioxide 24 mmol/L (22-30); Chloride 107 mmol/L (98-107); Estimated CRCL calculation 101 ml/min; Estimated Glomerular Filt Rate > 60; Glucose 86 mg/dL (65-110); Potassium 4.0 mmol/L (3.4-5.0); Sodium 133 mmol/L (137-145); Total Protein 6.2 g/dL (6.3-8.2)
[2025-03-13] MEDS: PANTOPRAZOLE SODIUM IV 40 MG VIAL IV PUSH (09:34)
[2025-03-13] MEDS: HYDROcodone/acetaminophen (*CRX) 10-325 MG TABLET 1 TAB PO (09:46)
--- NOTE | 2025-03-13 11:49 | PM.PNGS ---
Progress Note: A&P Assessment and Plan (1) Cholecystitis: Code(s): K81.9 - Cholecystitis, unspecified Status: Acute Assessment and Plan: Will add Flexeril for muscle spasms, continue routine postoperative care, if pain and muscle spasms controlled with p.o. medications she can be discharged home, follow-up 2 weeks Subjective Subjective Date/Time Seen: 03/13/25 11:49 Interval history: feels ok, some muscle spasms c movt Review of Systems Review of Systems: All systems reviewed & are unremarkable except as noted in HPI and below Exam Const: General: cooperative, comfortable and no acute distress Resp: Auscultation: clear to auscultation bilaterally Cardio: Rate: regular rate Rhythm: regular rhythm GI: Inspection: normal to inspection, distended and incision GI Palp: Yes abdominal tenderness and Yes Soft to palpation Objective Data Vital Signs Vital Signs: Vital Signs - 24 hr 03/12/25 13:43 03/12/25 16:07 03/12/25 16:20 Temperature 37.2 C 36.6 C Pulse Rate 67 90 79 Respiratory Rate 16 15 16 Blood Pressure 110/57 L 147/78 H 152/81 H Pulse Oximetry 100 100 100 Oxygen Delivery Room Air Simple Face Mask Simple Face Mask Oxygen Flow Rate 6 6 03/12/25 16:30 03/12/25 16:35 03/12/25 16:50 Temperature Pulse Rate 70 71 Respiratory Rate 16 16 Blood Pressure 152/78 H 121/76 Pulse Oximetry 100 97 Oxygen Delivery Room Air Room Air Room Air Oxygen Flow Rate 03/12/25 17:05 03/12/25 17:35 03/12/25 17:35 Temperature 36.2 C L 36.2 C L Pulse Rate 83 60 60 Respiratory Rate 16 16 16 Blood Pressure 125/69 130/77 130/77 Pulse Oximetry 96 99 99 Oxygen Delivery Room Air Oxygen Flow Rate 03/12/25 17:50 03/12/25 17:50 03/12/25 18:20 Temperature 35.7 C L 35.7 C L 36.6 C Pulse Rate 83 93 87 Respiratory Rate 16 16 18 Blood Pressure 129/81 129/81 125/77 Pulse Oximetry 97 97 96 Oxygen Delivery Oxygen Flow Rate 03/12/25 18:20 03/12/25 19:20 03/12/25 20:00 Temperature 36.6 C 36.4 C L 36.4 C L Pulse Rate 87 84 84 Respiratory Rate 18 18 18 Blood Pressure 125/77 126/62 126/62 Pulse Oximetry 96 100 100 Oxygen Delivery Oxygen Flow Rate 03/12/25 20:00 03/12/25 23:30 03/13/25 04:00 Temperature 36.7 C 36.1 C L Pulse Rate 61 67 Respiratory Rate 16 16 Blood Pressure 113/57 L 106/50 L Pulse Oximetry 97 97 Oxygen Delivery Room Air Oxygen Flow Rate 03/13/25 08:00 Temperature 36.0 C L Pulse Rate 64 Respiratory Rate 18 Blood Pressure 111/58 L Pulse Oximetry 99 Oxygen Delivery Oxygen Flow Rate Intake/Output Intake/Output: Intake & Output 03/10/25 03/11/25 03/12/25 03/13/25 23:59 23:59 23:59 23:59 Intake Total 3000 1180 840 Balance 3000 1180 840 Meds/Results Medications: Active Medications Generic Name Dose Route Start Last Admin Trade Name Freq PRN Reason Stop Dose Admin Acetaminophen 650 mg 03/11/25 14:13 03/11/25 20:06 Acetaminophen 325 Mg Tablet PO 650 mg Q4H PRN Administration Headache Hydrocodone Bitart/Acetaminophen 1 tab 03/12/25 17:11 03/13/25 06:21 Hydrocodone/Acetaminophen (*Crx) 5-325 Mg Tablet PO 1 tab Q4H PRN Administration Pain Rated 4-6 Hydrocodone Bitart/Acetaminophen 1 tab 03/13/25 08:20 03/13/25 09:46 Hydrocodone/Acetaminophen (*Crx) 10-325 Mg Tablet PO 1 tab Q6H PRN Administration Pain Rated 7-10 Cyclobenzaprine HCl 10 mg 03/13/25 11:46 Cyclobenzaprine Hcl 10 Mg Tablet PO Q8H PRN Muscle Spasm Morphine Sulfate 4 mg 03/11/25 08:03 03/13/25 07:43 Morphine Sulfate (*Crx) 4 Mg/Ml Inj IV PUSH 4 mg Q2H PRN Administration Pain Rated 7-10 Ondansetron HCl 4 mg 03/11/25 08:03 03/12/25 17:58 Ondansetron Inj 4 Mg/2 Ml Vial IV PUSH 4 mg Q4H PRN Administration Nausea Pantoprazole Sodium 40 mg 03/12/25 09:00 03/13/25 09:34 Pantoprazole Sodium Iv 40 Mg Vial IV PUSH 40 mg QAM YOKO Administration Polyethylene Glycol 17 gm 03/13/25 09:00 03/13/25 09:34 Polyethylene Glycol 3350 17 Gm Powd.Pack PO 17 gm QAM YOKO Administration Radiology Results: ITS Impressions Abdomen/Pelvis CT 03/11/25 07:09 IMPRESSION: 1. Normal-sized gallbladder with wall thickening. The differential diagnosis includes interstitial edema and chronic cholecystitis. 2. Small uterine fibroid. Upper Quadrant Ultrasound 03/11/25 11:50 IMPRESSION: Gallstones and gallbladder sludge with gallbladder wall thickening concerning for developing cholecystitis. The pancreas is poorly evaluated on this exam. Labs Labs: Laboratory Results - last 24 hr 03/13/25 06:53 WBC 9.8 RBC 3.75 L Hgb 9.8 L Hct 31.4 L MCV 83.7 MCH 26.1 MCHC 31.2 L RDW 15.6 H Plt Count 280 MPV 11.4 H Immature Gran % (Auto) 0.4 Neut % (Auto) 82.3 H Lymph % (Auto) 10.3 L [place] % (Auto) 6.4 Eos % (Auto) 0.3 Baso % (Auto) 0.3 Lymph # (Auto) 1.01 [place] # (Auto) 0.6 Eos # (Auto) 0.0 Baso # (Auto) 0.0 Abs Immat Gran (auto) 0.04 H Absolute Neuts (auto) 8.1 H Absolute Nucleated RBC 0.000 Nucleated RBC % 0.0 Sodium 133 L Potassium 4.0 Chloride 107 Carbon Dioxide 24 Anion Gap 2 L BUN 6 L Creatinine 0.72 Estim Creat Clear Calc 101 Estimated GFR > 60 Glucose 86 Calcium 8.5 Total Bilirubin 0.3 AST 41 H ALT 81 H Alkaline Phosphatase 58 Total Protein 6.2 L Albumin 3.4 L
[2025-03-13 11:54] VITALS: BP 101/61; PULSE 66; RESP 20; TEMP 35.9; O2SAT 99
[2025-03-13] MEDS: CYCLOBENZAPRINE HCL 10 MG TABLET PO (12:52)
--- NOTE | 2025-03-13 14:36 | P.DS_ITS ---
DS: Admitting Diagnosis Discharge Date 03/13/25 Admitting Diagnosis cholelithiasis DS: Discharge Diagnosis Discharge Diagnosis (1) Biliary colic: Code(s): K80.50 - Calculus of bile duct without cholangitis or cholecystitis without obstruction Status: Acute (2) Transaminitis: Code(s): R74.01 - Elevation of levels of liver transaminase levels Status: Acute (3) Cholecystitis: Code(s): K81.9 - Cholecystitis, unspecified Status: Acute DS: Summary Hospital Course Reason for hospitalization: - symptomatic cholelithiaisis Hospital Course: The patient is a 34-year-old female admitted with acute cholecystitis and transaminitis. She initially presented to the emergency department with right upper quadrant abdominal pain radiating to the back, associated with nausea and vomiting. Laboratory evaluation revealed leukocytosis, mild anemia, and significantly elevated transaminases. Imaging with CT abdomen/pelvis demonstrated gallbladder wall thickening, and right upper quadrant ultrasound confirmed the presence of gallstones, gallbladder sludge, and wall thickening consistent with acute cholecystitis. She was admitted to the hospitalist service, started on IV fluids, IV pantoprazole, and levofloxacin, and kept NPO. General surgery was consulted, and after multidisciplinary discussion, the patient underwent a laparoscopic cholecystectomy without complications. Postoperatively, the patient?s pain was well controlled with oral hydrocodone/acetaminophen ([place]) and cyclobenzaprine (Flexeril). She was able to tolerate a regular diet, ambulate independently, and had no further episodes of nausea or vomiting. Her vital signs remained stable throughout her stay, and her laboratory values showed improving transaminases and stable hemoglobin. She was cleared by general surgery to discharge and follow-up as outpatient in 2 weeks. She was instructed to follow up with her primary care physician for ongoing management of her chronic iron deficiency anemia, including discussion of possible outpatient iron transfusions as she has not tolerated oral iron in the past. At the time of discharge, she was ambulating, tolerating oral intake, and her pain was well managed with oral medications. She was discharged home in stable condition. Status at Discharge Functional status at discharge: independent ambulation Overall status at discharge: patient is progressing back to baseline Time Spent with Patient Time attestation: Total time spent providing and/or coordinating discharge services: Time spent: Greater than 30 minutes Exam Narrative: General: NAD Eyes: EOMI ENT: neck supple Cardiovascular: Regular rate and rhythm Respiratory: Clear to auscultation, respirations even and unlabored on RA Gastrointestinal: Soft, mild tenderness of the upper abdomen Genitourinary: no suprapubic tenderness Musculoskeletal: No edema Skin: warm, dry Neuro: Alert. Psych: Mood appropriate DS: Data Data Completed and Pending Completed studies during hospitalization: ITS Impressions Abdomen/Pelvis CT 03/11/25 07:09 IMPRESSION: 1. Normal-sized gallbladder with wall thickening. The differential diagnosis includes interstitial edema and chronic cholecystitis. 2. Small uterine fibroid. Upper Quadrant Ultrasound 03/11/25 11:50 IMPRESSION: Gallstones and gallbladder sludge with gallbladder wall thickening concerning for developing cholecystitis. The pancreas is poorly evaluated on this exam. Pending studies at discharge: Pending at discharge 03/12/25 15:50 Surgical [PTH] Routine Labs on day of discharge: Labs from last 24 hours 03/13/25 06:53 WBC 9.8 RBC 3.75 L Hgb 9.8 L Hct 31.4 L MCV 83.7 MCH 26.1 MCHC 31.2 L RDW 15.6 H Plt Count 280 MPV 11.4 H Immature Gran % (Auto) 0.4 Neut % (Auto) 82.3 H Lymph % (Auto) 10.3 L [place] % (Auto) 6.4 Eos % (Auto) 0.3 Baso % (Auto) 0.3 Lymph # (Auto) 1.01 [place] # (Auto) 0.6 Eos # (Auto) 0.0 Baso # (Auto) 0.0 Abs Immat Gran (auto) 0.04 H Absolute Neuts (auto) 8.1 H Absolute Nucleated RBC 0.000 Nucleated RBC % 0.0 Sodium 133 L Potassium 4.0 Chloride 107 Carbon Dioxide 24 Anion Gap 2 L BUN 6 L Creatinine 0.72 Estim Creat Clear Calc 101 Estimated GFR > 60 Glucose 86 Calcium 8.5 Total Bilirubin 0.3 AST 41 H ALT 81 H Alkaline Phosphatase 58 Total Protein 6.2 L Albumin 3.4 L Discharge Plan Discharge Attending physician on discharge: Nigel Martínez Consulting providers: Brandie Gonzalez; Nenita Martinez Discharging Clinician: Nenita Martinez Anticipated Discharge Date/Time: 03/13/25 14:30 Patient Disposition: Home Activity: may shower and as tolerated Diet: as tolerated Wound Care Instructions: incision open to air Discharge Instructions: Remove the Scopolamine patch that was placed behind your ear in 72 hours or less. Wash your hands after touching. DISCHARGE INSTRUCTION SHEET FOR HERNIA, GALLBLADDER AND APPENDIX SURGERIES DR. GONZALEZ PATIENT TO TAKE HOME 1. May shower in 24 hours, no soaking in bath x 2weeks. 2. Call office for: * Wound increasingly painful or bleeding * Vomiting * Fever of greater than 101 degrees 3. If no bowel movement for three days, take 1 oz. (30 ml) Milk of Magnesia or MiraLax 17g 1 to 2 times daily. 4. No heavy lifting > 10-15 pounds x 6 weeks for hernia repairs and 2 weeks for laparoscopic cholecystectomy or appendectomy. 5. No driving for 3 days or while taking narcotic pain medications. 6. Ice to surgical site for 48 hours (30 min on, then 30 min off). 7. Up walking 10-30 minutes three times per day. 8. Resume previous home medications. 9. Follow-up 10-14 days in office for wound check or as previously scheduled. ([phone]) 10. Oral pain medications prescription to be sent to pharmacy. Take Tylenol 500mg every 6 hours and Ibuprofen 600mg every 6 hours for the first 2 days, then as needed. 11. NUTRITION: Start out by drinking fluids and increase your diet as tolerated. If you experience nausea, try dry toast, crackers, and 7-UP. If nausea or vomiting persists, contact your surgeon?s office. 12. Gallbladders-Low Fat Diet for 2 weeks (send care note of low fat diet) 13. Inguinal Hernias-wear scrotal support for 48 hours 14. Abdominal Hernias-if sent home with abdominal binder, wear for the first 2 weeks (may remove to shower or at night to sleep). 15. Caution taking [place] and Flexeril together as these medications can make your drowsy/dizzy, especially when combined Discuss your chronic anemia with your primary care provider and consider outpatient iron tansfusions. Revised 04/2020 Patient Instructions: Antibiotic Form Patient Language: Cameroonian Stand Alone Forms: General Discharge Information Follow-up/Referrals: Brandie Gonzalez MD [Physician, General Surgery] - 2 Weeks Discharge Medications: New hydrocodone-acetaminophen 5-325 mg tablet 1 tablet PO Q6H PRN (Reason: pain) Qty: 20 0RF cyclobenzaprine 10 mg tablet 10 mg PO TID PRN (Reason: muscle spasm) Qty: 20 0RF Continued hydroxyzine HCl 25 mg tablet 25 mg PO TID PRN (Reason: anxiety) dextroamphetamine-amphetamine 30 mg capsule,extended release 24hr 30 mg PO DAILY Date of admission: 03/11/25 08:04 Primary Care Provider: StalinWilly Admitting Provider: Kacie Kingston Attending physician on admission: Kacie Kingston Condition: Stable
== END 2025-03-13 16:02 | disposition home or self-care (01) ==
LOC: ANHED 07:58 → ANH3MEDSUR 08:46
PROVIDERS: Surgery; Admitting Provider Internal Medicine; Emergency Provider Student in an Organized Health Care Education/Training Program; PCP Family Medicine; Visit Provider Physician Assistant
PROC: 0FT44ZZ Resection of Gallbladder, Percutaneous Endoscopic Approach (ICD-10-PCS; CPT 47562; principal; 2025-03-12 15:00)
DX: K80.10 Calculus of gallbladder with chronic cholecystitis without obstruction (principal); R74.01 Elevation of levels of liver transaminase levels; D25.9 Leiomyoma of uterus, unspecified; F41.9 Anxiety disorder, unspecified; F17.290 Nicotine dependence, other tobacco product, uncomplicated; Z79.3 Long term (current) use of hormonal contraceptives; Z83.49 Family history of other endocrine, nutritional and metabolic diseases; Z83.3 Family history of diabetes mellitus; Z81.8 Family history of other mental and behavioral disorders; Z82.49 Family history of ischemic heart disease and other diseases of the circulatory system; Z83.6 Family history of other diseases of the respiratory system
CPT/HCPCS: 47562; 36415; 74177; 76705; 80053; 80074; 80307; 81001; 82077; 83605; 83690; 83735; 84443; 84703; 85025; 87040; 88304; 93005; 96361; 96374; 96375; 99285; A9270; G0378; J1100; J1956; J2270; J2405; J2470; J2704; J3010; J7030; J7120; Q9967